=== PATIENT | female | born 1980 | race Caucasian/White ===

== ENCOUNTER → 2019-09-10 15:05 | Outpatient (CLI) | payer BC, SELFPAY ==
[2019-09-10 16:11] LABS: Basophils # 0.1 K/mm3 (0-0.2); Basophils % 0.5 % (0.1-2.0); Eosinophils # 0.2 K/mm3 (0.0-0.4); Eosinophils % 1.4 % (0.1-12.0); Hematocrit 47.1 % (37.0-47.0); Hemoglobin 15.4 g/dL (12.2-16.2); Lymphocytes # 3.9 K/mm3 (0.7-4.5); Lymphocytes % 31.1 % (10-50); Mean Corpuscular HGB Conc 32.7 g/dL (31.8-35.4); Mean Corpuscular Hemoglobin 31.2 pg (27.0-31.2); Mean Corpuscular Volume 95.2 fl (81-99); Mean Platelet Volume 7.9 fl (7.4-10.4); Monocytes # 0.8 K/mm3 (0.1-1.0); Monocytes % 6.4 % (1.7-9.3); Neutrophils # 7.7 K/mm3 (1.8-7.8); Neutrophils % 60.6 % (37.0-80.0); Platelet Count 385 K/mm3 (142-424); Red Blood Count 4.95 M/mm3 (4.20-5.40); Red Cell Distribution Width 13.3 % (11.5-17.5); White Blood Count 12.7 K/mm3 (4.8-10.8)
[2019-09-10 17:16] LABS: Chloride 107 mmol/L (98-107)
[2019-09-10 17:17] LABS: Potassium 4.3 mmoL/L (3.5-5.1); Sodium 138 mmol/L (136-145)
[2019-09-10 17:19] LABS: Alanine Aminotransferase 17 U/L (12-78); Alkaline Phosphatase 64 U/L (38-126); Aspartate Amino Transferase 24 U/L (14-36); Bilirubin,Total 0.5 mg/dl (0.2-1.3); Blood Urea Nitrogen 12 mg/dl (7-17); Estimated Glomerular Filt Rate 111 ml/min (>60); GFR (African American) 135 ML/MIN (>60)
[2019-09-10 17:20] LABS: Albumin/Globulin Ratio 1.1 (1.1-1.8); Anion Gap 8.3 mEq/L (5-15); Calcium 9.9 mg/dl (8.4-10.2); Carbon Dioxide 27 mmol/L (22.0-30.0); Globulin 3.7 g/dL (1.3-3.2); Glucose 77 mg/dl (74-100); Iron 124 ug/dL (37-170); Total Protein,Serum 7.7 g/dl (6.3-8.2)
[2019-09-10 17:26] LABS: C-Reactive Protein 10.4 mg/L (0-4)
[2019-09-10 17:28] LABS: Total Iron Binding Capacity 364 ug/dL (265-497)
[2019-09-10 17:37] LABS: 25-OH Vitamin D, Total 68.7 ng/mL (30-100)
[2019-09-10 17:55] LABS: Ferritin 33.4 ng/ml (6.24-137)
[2019-09-13 10:13] LABS: Vitamin B12 594 pg/mL (232-1245)
== END ==
PROVIDERS: Visit Provider Internal Medicine Gastroenterology
DX: K50.10 Crohn's disease of large intestine without complications (principal); L73.2 Hidradenitis suppurativa; R19.7 Diarrhea, unspecified
CPT/HCPCS: 36415; 80053; 82306; 82607; 82728; 83540; 83550; 85025; 86140

== ENCOUNTER → 2019-09-20 13:26 | Outpatient (CLI) | payer BC, SELFPAY ==
--- NOTE | 2019-09-20 13:39 | XR_ITS ---
PROCEDURE: XR KNEE RT 2V CLINICAL INDICATION: PAIN IN R KNEE COMPARISON: No exams were available for comparison FINDINGS: No fracture or dislocation. No lytic or blastic change. There is normal mineralization. The joint spaces are well-preserved. No significant degenerative/arthritic changes. No erosive changes evident. Other findings:None. IMPRESSION: No acute findings. Dictated by: Kimo Kebede 09/20/2019 13:56 Electronically signed by Kimo Kebede in [place] 09/20/2019 13:56
== END ==
PROVIDERS: PCP Nurse Practitioner Family; Visit Provider Nurse Practitioner Family
DX: M25.561 Pain in right knee (principal)
CPT/HCPCS: 73560

== ENCOUNTER 2020-03-19 17:11 | Emergency (ER) | payer BC, SELFPAY ==
[2020-03-19 17:30] VITALS: BP 158/98; PULSE 83; RESP 20; TEMP 36.9; O2SAT 97; BMI 38.2
--- NOTE | 2020-03-19 17:55 | HMH.EDUTC ---
[facility] [place] Disposition Clinical Impression: Otitis externa Qualifiers: Otitis externa type: unspecified type Chronicity: acute Laterality: left Qualified Code(s): H60.502 - Unspecified acute noninfective otitis externa, left ear Disposition: Home, Self-Care Condition on Discharge: Good Instructions: Middle Ear Infection, DI for Otitis Externa Additional Instructions: Drink plenty of fluids. Use the ear drops as directed. Take tylenol or ibuprofen for pain or fever. Take the medications as directed. Follow up with your regular doctor. GO TO THE ER FOR ANY WORSENING SYMPTOMS Prescriptions: Ciprofloxacin HCl/Dexameth [Ciprodex Otic Suspension] 2 drops EAR-BOTH BID 7 Days #1 bottle Transmission Status: Received by [employer] # Ciprofloxacin HCl [Ciprofloxacin 0.2% Otic Soln] 0.25 ml EAR-LEFT BID 7 Days #1 bottle Transmission Status: Received by [employer] # Cefdinir [Omnicef 300mg Capsule] 300 mg PO BID #20 cap Transmission Status: Received by [employer] # Referrals: Kriss Ardon [Primary Care Provider] - Time of Disposition: 18:17 Medical Decision Making - Medical Records Medical records reviewed: No: I reviewed the patient's medical records. - Wilder Inquiry Pt receiving controlled substance: No Vital Signs: 03/19/20 17:30 03/19/20 18:19 Temperature 98.4 F 98.4 F Temperature Source Oral Pulse Rate 83 Pulse Rate [Left Brachial] 83 Respiratory Rate 20 20 Blood Pressure 158/98 H Blood Pressure [Left Arm] 158/98 H Blood Pressure Mean [Left Arm] 118 Blood Pressure Source [Left Arm] Automatic Cuff Blood Pressure Position [Left Arm] Sitting 02 Sat by Pulse Oximetry 97 Oxygen Delivery Method Room Air [facility] [place] HPI - General Stated complaint: Left ear pain Time Seen by Provider: 03/19/20 17:55 Mode of Arrival: Ambulatory Source of Information: Patient Limitations: No Limitations Description of Symptoms (Recalled from Triage Doc. by RN): PATIENT C/O PAIN AND DRAINAGE FROM LEFT EAR X 3 DAYS HEENT Symptoms (Recalled from RN notes): Yes Resp Symptoms (Recalled from RN notes): No Skin Symptoms (Recalled from RN notes): No MS Symptoms (Recalled from RN notes): No Functional Status (Recalled from RN notes): WNL - History of Present Illness Provider Complaint: She c/o left ear pain for the past 1 week. She had similar symptoms about a month ago. At this time she was prescribed amoxicillin for an ear infection. She states that her ear got better then, but her symptoms came back. - Related Data Home Medications Medication Instructions Recorded Confirmed Adalimumab [Humira] 80 mg SQ WEEKLY 02/18/19 02/18/19 Mercaptopurine 50 mg PO DAILY 02/18/19 02/18/19 Sertraline HCl [Zoloft 100mg 100 mg PO DAILY 02/18/19 02/18/19 tablet] norgestimate-ethinyl estradioL 1 tab PO DAILY 02/18/19 02/18/19 [Tri-Sprintec Tablet] Previous Rx's Medication Instructions Recorded Azithromycin [Z-Al 250mg Tab*] 250 mg PO UD DOSE PK #6 tab 02/18/19 Brompheniramine/Pseudoephed/Dm 5 ml PO Q6HP PRN #240 syrup 02/18/19 [Bromfed Dm Cough Syrup] Ondansetron [Zofran 4mg ODT] 4 mg PO Q8HP PRN #20 tab.rapdis 02/18/19 methylPREDNISolone [Medrol] 4 mg PO DIRECTED 6 Days #21 02/18/19 tab.ds.pk Cefdinir [Omnicef 300mg Capsule] 300 mg PO BID #20 cap 03/19/20 Ciprofloxacin HCl [Ciprofloxacin 0.25 ml EAR-LEFT BID 7 Days #1 03/19/20 0.2% Otic Soln] bottle Ciprofloxacin HCl/Dexameth 2 drops EAR-BOTH BID 7 Days #1 03/19/20 [Ciprodex Otic Suspension] bottle Allergies Allergy/AdvReac Type Severity Reaction Status Date / Time Penicillins Allergy Verified 03/19/20 17:54 Sulfa (Sulfonamide Allergy Verified 03/19/20 17:54 Antibiotics) - Worker's Comp Is this a Worker's Comp case?: No [facility] History - Hepatitis A Screen Drug use history?: No High risk sexual behaviors?: No History of sexually transmitted infection?: No Currently employed?: No
[2020-03-19 18:19] VITALS: BP 158/98; PULSE 83; RESP 20; TEMP 36.9; O2SAT 97
== END 2020-03-19 18:24 | disposition home or self-care (01) ==
PROVIDERS: Emergency Provider Nurse Practitioner Family; PCP Nurse Practitioner Family
DX: H60.502 Unspecified acute noninfective otitis externa, left ear (principal); F17.210 Nicotine dependence, cigarettes, uncomplicated; Z88.0 Allergy status to penicillin; Z88.2 Allergy status to sulfonamides
CPT/HCPCS: 99201

== ENCOUNTER → 2020-04-15 11:11 | Outpatient (POV) | payer BC, SELFPAY | PROVIDERS: Visit Provider Otolaryngology | DX: Z00.00 Encounter for general adult medical examination without abnormal findings (principal) ==

== ENCOUNTER → 2020-07-01 10:57 | Outpatient (CLI) | payer BC, SELFPAY ==
--- NOTE | 2020-07-01 11:04 | XR_ITS ---
PROCEDURE: XR WRIST LT MIN 3V CLINICAL INDICATION: SPRAIN OF LT WRIST, INITIAL ENCOUNTER Pain COMPARISON: No exams were available for comparison FINDINGS: No fracture or dislocation. No lytic or blastic change. There is normal mineralization. The joint spaces are well-preserved. No significant degenerative/arthritic changes. No erosive changes evident. Other findings:None. IMPRESSION: No acute findings. Dictated by: Toro Gallegos MD 07/01/2020 12:15 Toro Gallegos MD in [place] 07/01/2020 12:15
== END ==
PROVIDERS: PCP Nurse Practitioner Family; Visit Provider Family Medicine
DX: M25.532 Pain in left wrist (principal); W19.XXXA Unspecified fall, initial encounter
CPT/HCPCS: 73110

== ENCOUNTER → 2020-07-23 09:30 | Outpatient (CLI) | payer BC, SELFPAY ==
[2020-07-23 10:55] LABS: Coronavirus 19 IgG Antibody Positive (Negative); Coronavirus 19 IgM Antibody Negative (Negative)
== END ==
PROVIDERS: Visit Provider Internal Medicine Gastroenterology
DX: Z01.812 Encounter for preprocedural laboratory examination (principal); Z20.822 Contact with and (suspected) exposure to COVID-19; Z12.11 Encounter for screening for malignant neoplasm of colon
CPT/HCPCS: 36415; 86328

== ENCOUNTER 2020-07-25 10:23 | Day surgery (SDC) | payer BC, SELFPAY ==
[2020-07-22 17:33] VITALS: BMI 35.5
[2020-07-25 11:30] VITALS: BP 126/89; PULSE 85; RESP 18; TEMP 36.5; O2SAT 96
[2020-07-25 12:31] VITALS: O2SAT 100
--- NOTE | 2020-07-25 13:02 | P.PCN_ITS ---
[facility] Procedure Note Procedure Note:: Colonoscopy Procedure Report: Colonoscopy with cold snare polypectomy Endoscopist: Duke Westbrook II, MD Referring physician: YENNI Donahue/Zenobia Sevilla MD Date of Procedure: July 25, 2020 Equipment: Olympus 190 variable stiffness pediatric colonoscope Sedation: MAC sedation Indication: Mrs. Hidalgo is a 40-year-old female with a history of Crohn's colitis and perianal Crohn's disease. She has followed with [facility] for more than 15 years. She did have perianal fistulas and this was managed with seton placement. [facility] (Oksana Katz MD). The patient has had normal C-reactive protein and sedimentation rate. She is taking Humira weekly. She is in clinical remission. She will get some occasional minor discomfort in the right lower quadrant like a catch or stitch. The patient reports no rectal bleeding, weight loss or change in bowel habits. She does have intermittent diarrhea. She does have 2 sisters with Crohn's disease. She has no family history of colon cancer. The patient's last colonoscopy was December 2013 and she had moderately active Crohn's colitis at that time. Procedure: Prior to the procedure, a history and physical exam was performed, and patient's medications and allergies were reviewed. The risks, benefits and alternatives of the sedation and procedure were discussed with the patient. All questions were answered and informed consent was obtained. The patient was brought to the procedure room. Patient identification and proposed procedure were verified by the physician and the nurse. The patient was placed in a left lateral decubitus position and the scope was passed under direct vision. Throughout the procedu re, the patient's blood pressure, pulse, and oxygen saturations were monitored continuously. The colonoscopy was accomplished without difficulty. The patient tolerated the procedure well. Findings: On digital rectal examination there was slightly reduced rectal tone. There was some evidence in the perianal region of prior perianal Crohn's which had healed. There were no external hemorrhoids. The colonoscope was introduced through the anal canal to the rectum and advanced to the cecum. The ileocecal valve and appendiceal orifice were identified. The scope was advanced a short distance into the ileum which appeared grossly normal. The scope was then withdrawn into the colon. Throughout the colon there was some mucosal fibrosis but no evidence of any active colitis throughout. There were 3 polyps in the ascending colon/right colon removed via cold snare polypectomy. There was no colonic stricturing. The remaining cecum, ascending, transverse, descending, sigmoid and rectum were grossly normal. There were no mucosal abnormalities identified. Upon retroflexion within the rectum there was evidence of some fibrosis at the pectinate line from prior perianal Crohn's. There were no fistulas. The preparation was excellent throughout with [place] Preparation Score of 9. The cecal time was 12 minutes. Impression: 1. Colonic polyps x3 2. Complete remission of Crohn's colitis 3. Mild mucosal fibrosis and complete healing of perianal Crohn's Plan: The patient is in remission. I would continue Humira as maintenance therapy. I will follow up the polyp histology and would recommend surveillance colonoscopy every 5 years. I will discuss the findings with the patient and family. I do feel that she gets intermittent functional diarrhea. I would consider bulk fiber (FiberCon) and IBgard.
[2020-07-25 13:05] VITALS: BP 109/72; PULSE 86; RESP 18; TEMP 36.6; O2SAT 92
[2020-07-25 13:20] VITALS: BP 124/90; PULSE 77; RESP 18; O2SAT 96
[2020-07-25 13:26] VITALS: BP 127/95; PULSE 80; RESP 18; O2SAT 96
[2020-07-25 13:46] VITALS: BP 136/78; PULSE 78; RESP 18; O2SAT 97
--- NOTE | 2020-07-25 13:48 | HMH.ANESCL ---
[facility] Anesthesia Checklist - Structural Data Admitted From: Home Planned Operative Procedure/s: colonoscopy Consent for Planned Operative Procedure(s) Verified: Yes - Airway Assessment C-Spine Mobility Assessed: Yes TMJ Mobility Assessed: Yes Dentition: Good Dentition - Neurological Assessment Level of Consciousness: Awake, Alert, Appropriate - Anesthesia Plan Anesthesia Risk discussed: Yes Anesthesia Plan: Verified ASA Class: II Anesthesia Type: MAC [facility] History I have reviewed the patient's past medical history: Yes Medical History: Denies:: Cancer, Diabetes Mellitus Type 1, Diabetes Mellitus Type 2, Internal Pacemaker, MRSA, Seizures *Have you ever received a pneumonia vaccine?: No *Have you received a flu vaccine this season?: No Anesthesia experience/problems:: none Other Surgeries: No: Pacemaker Amputation: No Fractures: No - *Social History Smoking Status: Current some day smoker Tobacco Type: cigarettes # Packs/Day (cigarettes): 1 Alcohol Intake: never Substance Use Type: denies use *Occupational Status:: employed Housing: house Household Members: spouse *Travel in the last 8 weeks: None Family Hx:: No significant family history
== END 2020-07-25 13:48 | disposition home or self-care (01) ==
LOC: OUTP 10:24
PROVIDERS: PCP Nurse Practitioner Family; Visit Provider Internal Medicine Gastroenterology
PROC: 0DJD8ZZ Inspection of Lower Intestinal Tract, Via Natural or Artificial Opening Endoscopic (ICD-10-PCS; CPT 45378; principal; 2020-07-25 11:30)
DX: K63.5 Polyp of colon (principal); Z87.19 Personal history of other diseases of the digestive system; Z83.79 Family history of other diseases of the digestive system; Z72.0 Tobacco use; I10 Essential (primary) hypertension; F41.9 Anxiety disorder, unspecified; Z86.718 Personal history of other venous thrombosis and embolism; Z80.9 Family history of malignant neoplasm, unspecified; Z88.2 Allergy status to sulfonamides; Z79.899 Other long term (current) drug therapy
CPT/HCPCS: 45385

== ENCOUNTER → 2020-07-29 11:12 | Outpatient (CLI) | payer BC, SELFPAY ==
--- NOTE | 2020-07-29 | ECG_ITS ---
APPROVED REPORT Exam: Resting ECG HR:66 bpm ECG Measurements Heart Rate 66 AXES LA 130 P 54 QRSd 82 QRS 59 QT 380 T -11 QTc 398 Conclusion Normal sinus rhythm Nonspecific ST abnormality Abnormal QRS-T angle, consider primary T wave abnormality Abnormal ECG Electronically signed by : Gary Fountain, 07/30/2020 17:00:11
== END ==
PROVIDERS: PCP Nurse Practitioner Family; Visit Provider Colon & Rectal Surgery
DX: Z01.810 Encounter for preprocedural cardiovascular examination (principal); K61.2 Anorectal abscess
CPT/HCPCS: 93005

== ENCOUNTER → 2020-09-16 14:23 | Outpatient (CLI) | payer BC, SELFPAY ==
--- NOTE | 2020-09-16 14:24 | CA_ITS ---
APPROVED REPORT EXAM: Comprehensive 2D, Doppler, and color-flow Echocardiogram Stencil Typist: Venus Cook CRT Ht: 5 ft 6 in Wt: 238lbs BSA: 2.15 BP: 138/96 mmHg Indications: Chest Pain, Hypertension/HDD, Smoking, PICC 2D Dimensions LVOT 2.00 cm (M/F) 1.5-2.5 LA Volume 45.70 mL LA Volume Index 21.30 mL/m2 (M/F) 16-34 M-Mode Dimensions RVDd 2.41 cm (0.9-2.6) LA Diam 3.70 cm (1.9-4.0) LVDd 4.75 cm (3.5-5.7) Ao Diam 3.15 cm (2.0-3.7) LVDs 3.36 cm (3.5-5.7) IVSd 1.42 cm (0.6-1.1) PWd 1.10 cm (0.6-1.1) EF (Teich) 37.20% FS 13.90% EDV (Teich) 33.60 mL TAPSE 2.14 (<1.7) ESV (Teich) 46.10 mL LV Diastology E Decel Time 253.00 (160-240 msec) E/A Ratio 1.20 MED E' 7.30 (< 7 cm/sec) MED A' 8.10 cm/s E'/MED E' Ratio 10.12 (>14) LAT E' 8.00 (<10 cm/sec) LAT A' 9.50 cm/s E/LAT E' Ratio 9.24 (>14) Aortic Valve AO Peak GR. 7.80 mmHg Mitral Valve MV A Velocity 62.00 (40-130 cm/s) E/A Ratio 1.20 MV Decel. Time 253.00 (160-240 ms) Pulmonary Valve PV Peak Velocity 58.00 (50-150 cm/s) Tricuspid Valve TR P. Velocity 168.00 cm/s RAP Estimate 10.00 mmHg RVSP 21.30 mmHg Left Ventricle Left atrium is mildly enlarged, left ventricle is normal size, there is no concentric left ventricular hypertrophy, visually estimated ejection fraction 55% with no regional wall motion abnormality, diastolic parameters are inconclusive. Right Ventricle Right atrium and right ventricle are normal size and contractility. Aortic Valve Aortic valve is grossly normal, there is no aortic stenosis or aortic insufficiency. Mitral Valve Mitral valve grossly normal, there is trace mitral regurgitation. Tricuspid Valve Tricuspid grossly normal, there is trace tricuspid regurgitation, tricuspid regurgitation jet velocity is inadequate for calculation of the right ventricular systolic pressure. Pulmonic Valve Pulmonic valve is poorly visualized. Great Vessels Aortic root is normal size. Pericardium No significant pericardial effusion noted. Conclusion 1. Mildly enlarged left atrium, normal left ventricular size, visually estimated ejection fraction 45% with no regional wall motion abnormality, diastolic parameters are inconclusive. 2. Trace mitral and tricuspid regurgitation. 3. No significant pericardial effusion noted. Electronically signed by : Camilo Baer, 09/16/2020 21:18:40
== END ==
PROVIDERS: PCP Nurse Practitioner Family; Visit Provider Physician Assistant
DX: R06.00 Dyspnea, unspecified (principal)
CPT/HCPCS: 93306

== ENCOUNTER → 2020-10-04 09:59 | Outpatient (CLI) | payer BC, SELFPAY ==
--- NOTE | 2020-10-04 11:18 | XR_ITS ---
PROCEDURE INFORMATION: Exam: XR Chest Exam date and time: 10/04/2020 11:18 AM Age: 40 years old Clinical indication: Dyspnea TECHNIQUE: Imaging protocol: XR of the chest. Views: 2 views. COMPARISON: No relevant prior studies available. FINDINGS: Lungs: The lungs are hyperinflated, consistent with underlying small airways disease. Granulomatous density noted within the right upper lobe. Atelectatic changes within the lung bases without focal pneumonia. Pleural spaces: Unremarkable. No pleural effusion. No pneumothorax. Heart/Mediastinum: Unremarkable. No cardiomegaly. Bones/joints: Unremarkable. IMPRESSION: 1. The lungs are hyperinflated, consistent with underlying small airways disease. 2. Atelectatic changes within the lung bases without focal pneumonia.
== END ==
PROVIDERS: PCP Nurse Practitioner Family; Referring Provider Physician Assistant; Visit Provider Physician Assistant
DX: R06.00 Dyspnea, unspecified (principal); F17.210 Nicotine dependence, cigarettes, uncomplicated; I10 Essential (primary) hypertension; K50.919 Crohn's disease, unspecified, with unspecified complications; R40.0 Somnolence; R94.31 Abnormal electrocardiogram [ECG] [EKG]
CPT/HCPCS: 71046

== ENCOUNTER → 2020-10-14 08:02 | Outpatient (CLI) | payer BC, SELFPAY ==
--- NOTE | 2020-10-14 08:02 | CT_ITS ---
PROCEDURE: CT CHEST WO CON CLINCAL INDICATION: abnormal cxr- COMPARISON: CR XR CHEST 2V from 10/04/2020 TECHNIQUE: Unenhanced CT chest with axial, coronal, and sagittal multiplanar reformations. Dose modulation, automated exposure control, and/or iterative reconstruction were used for dose reduction. FINDINGS: LUNGS:Calcified granuloma is noted in the right upper lobe. Atelectasis is noted in the lingular and the right middle lobe. No lobar consolidation, pleural effusions or pneumothorax. 6 millimeter nodule in the right upper lobe. No other suspicious lung nodules. Airway: The central airways are patent. HEART / GREAT VESSELS Heart:The heart is normal size without pericardial effusion. Vessels: The thoracic aorta is unremarkable. MEDIASTINUM Mediastinum: Calcified bilateral hilar lymph nodes are noted. No significant mediastinal adenopathy. UPPER ABDOMEN: Abdomen: Unremarkable, allowing for the noncontrast technique. BONES Bones: Unremarkable Thyroid: The visualized thyroid gland is unremarkable IMPRESSION: 6 millimeter nodule in the right upper lobe. It is follow-up with CT thorax without contrast in 6-12 months is recommended as per modified Fleischner criteria. Atelectasis in the right middle lobe and lingula. Dictated by: Paula Verma 10/14/2020 09:30 Paula Verma in [facility] 10/14/2020 09:30
== END ==
PROVIDERS: PCP Nurse Practitioner Family; Visit Provider Urology
DX: R06.00 Dyspnea, unspecified (principal); R93.89 Abnormal findings on diagnostic imaging of other specified body structures; R94.31 Abnormal electrocardiogram [ECG] [EKG]; B95.4 Other streptococcus as the cause of diseases classified elsewhere; I10 Essential (primary) hypertension; F17.200 Nicotine dependence, unspecified, uncomplicated
CPT/HCPCS: 71250

== ENCOUNTER → 2020-10-30 11:17 | Outpatient (CLI) | payer BC, SELFPAY ==
--- NOTE | 2020-10-30 12:33 | CT_ITS ---
PROCEDURE: CT HR CHEST X3 CLINICAL HISTORY: Lung nodule Abnormal CXR/CT COMPARISON: CT CT CHEST WO CON from 10/14/2020 TECHNIQUE: Standard images are performed along with inspiration, expiration, and prone high-resolution images. Axial images obtained with sagittal and coronal reformats. All CT scans at the facility use one or more dose reduction, viz: automated exposure control, ma/kV adjustment per patient size (including targeted exams where dose is matched to indication, i.e. head), or iterative reconstruction technique. FINDINGS: No mediastinal or hilar mass or adenopathy. Normal heart size. There is an 8 x 3 mm nodular opacity in the right minor fissure region unchanged. Fibrotic change/scarring noted in the right middle lobe. There are fibrotic changes in the lingula and mild atelectasis left lower lobe. High-resolution images demonstrates some minimal ground-glass opacity in the lingula and left lower lobe on the supine images. These however resolve on the prone images consistent with dependent changes.. No interlobular septal thickening is apparent. No honeycombing. No significant air trapping. IMPRESSION: 1. No evidence of interstitial lung disease. 2. Stable 8 x 3 mm nodular opacity right minor fissure with fibrotic change/scarring in lingula and right middle lobe Dictated by: Toro Gallegos MD 10/31/2020 10:18 Toro Gallegos MD in [place] 10/31/2020 10:18
== END ==
PROVIDERS: PCP Nurse Practitioner Family; Visit Provider Internal Medicine Pulmonary Disease
DX: R06.02 Shortness of breath (principal)
CPT/HCPCS: 71250; 94060; 94726; 94729

== ENCOUNTER → 2021-02-02 10:53 | Outpatient (CLI) | payer BC, SELFPAY ==
[2021-02-02 11:26] LABS: Basophils # 0.2 K/mm3 (0-0.2); Eosinophils # 0.2 K/mm3 (0.0-0.4); Eosinophils % 1.3 % (0.1-12.0); Hemoglobin 15.8 g/dL (12.2-16.2); Lymphocytes # 4.6 K/mm3 (0.7-4.5); Lymphocytes % 32.2 % (10-50); Mean Corpuscular HGB Conc 32.2 g/dL (31.8-35.4); Mean Corpuscular Volume 93.2 fl (81-99); Mean Platelet Volume 8.1 fl (7.4-10.4); Monocytes # 1.1 K/mm3 (0.1-1.0); Monocytes % 7.3 % (1.7-9.3); Neutrophils # 8.4 K/mm3 (1.8-7.8); Neutrophils % 58.1 % (37.0-80.0); Platelet Count 389 K/mm3 (142-424); Red Blood Count 5.26 M/mm3 (4.20-5.40); Red Cell Distribution Width 13.6 % (11.5-17.5); White Blood Count 14.4 K/mm3 (4.8-10.8)
[2021-02-02 12:15] LABS: Erythrocyte Sedimentation Rate 8 mm/hr (0-20)
[2021-02-02 13:55] LABS: Chloride 105 mmol/L (98-107); Potassium 4.2 mmoL/L (3.5-5.1); Sodium 139 mmol/L (136-145)
[2021-02-02 13:58] LABS: Alanine Aminotransferase 19 U/L (12-78); Albumin Level 4.2 g/dl (3.5-5.0); Albumin/Globulin Ratio 1.2 (1.1-1.8); Alkaline Phosphatase 79 U/L (38-126); Anion Gap 13.2 mEq/L (5-15); Aspartate Amino Transferase 29 U/L (14-36); Bilirubin,Total 0.3 mg/dl (0.2-1.3); Blood Urea Nitrogen 10 mg/dl (7-17); Calcium 9.4 mg/dl (8.4-10.2); Carbon Dioxide 25 mmol/L (22.0-30.0); Estimated Glomerular Filt Rate 136 ml/min (>60); GFR (African American) 165 ML/MIN (>60); Globulin 3.6 g/dL (1.3-3.2); Glucose 69 mg/dl (74-100); Iron 119 ug/dL (37-170); Total Protein,Serum 7.8 g/dl (6.3-8.2)
[2021-02-02 14:06] LABS: C-Reactive Protein 8.4 mg/L (0-4)
[2021-02-02 14:09] LABS: Total Iron Binding Capacity 333 ug/dL (265-497)
== END ==
PROVIDERS: Visit Provider Internal Medicine Gastroenterology
DX: K50.10 Crohn's disease of large intestine without complications (principal); K30 Functional dyspepsia; R12 Heartburn
CPT/HCPCS: 36415; 80053; 83540; 83550; 85025; 85651; 86140

== ENCOUNTER 2021-03-03 17:08 | Emergency (ER) | payer BC, SELFPAY ==
[2021-03-03 17:44] VITALS: BP 163/94; PULSE 86; RESP 19; TEMP 36.6; O2SAT 98; BMI 38.7
--- NOTE | 2021-03-03 17:48 | HMH.EDUTC ---
[facility] [place] Disposition Clinical Impression: Sinusitis Qualifiers: Sinusitis location: unspecified location Chronicity: unspecified Qualified Code(s): J32.9 - Chronic sinusitis, unspecified Disposition: Home, Self-Care Condition on Discharge: Good Instructions: Sinusitis, DI for Sinusitis, Azithromycin Additional Instructions: *Monitor Temp, Over the counter Motrin or Tylenol as directed/as needed Tylenol every 4 hours and Motrin every 6 hours (as long as your family doctor has told you that you can take it) for fever or pain. and straight to ER if unable to lower temp less than 101.0 after medication given *Warm salt water gargles may help to soothe the throat *Throat Lozenges *Warm fluids like tea with honey may help to soothe the throat *Sleep elevated *Humidifier/Vaporizer *Flonase 2 sprays in each nostril daily but be aware that it may take 2-3 days before you notice improvement *Take medication as prescribed Follow up with your Family Doctor if no improvement Follow up IMMEDIATELY for new or worsening symptoms or no Noticeable improvement over the next 48-72 hours. 911 for difficulty breathing or swallowing Prescriptions: methylPREDNISolone [Medrol 4mg tab] 4 mg PO DIRECTED #21 tab Transmission Status: Pending to [facility] # Azithromycin [Z-Al 250mg Tab] 250 mg PO DIRECTED #6 tab Transmission Status: Pending to [facility] # Referrals: Kriss Ardon [Primary Care Provider] - As needed Time of Disposition: 17:56 Medical Decision Making - Wilder Inquiry Pt receiving controlled substance: No Wilder was queried for this patient: No Vital Signs: 03/03/21 17:44 Temperature 97.8 F Temperature Source Oral Pulse Rate [Left] 86 Respiratory Rate 19 Blood Pressure [Right Arm] 163/94 H Blood Pressure Mean [Right Arm] 117 02 Sat by Pulse Oximetry 98 Medical Decision Narrative: Patient state that she has taken azithromycin and Medrol in the past without reactions or complications [facility] [place] HPI - General Stated complaint: sinus infection Time Seen by Provider: 03/03/21 17:48 Mode of Arrival: Ambulatory Source of Information: Patient Limitations: No Limitations Description of Symptoms (Recalled from Triage Doc. by RN): pt c/o sinus pressure and congestion HEENT Symptoms (Recalled from RN notes): Yes (sinus pressure and congestion) Resp Symptoms (Recalled from RN notes): No Skin Symptoms (Recalled from RN notes): No MS Symptoms (Recalled from RN notes): No Functional Status (Recalled from RN notes): wnl - History of Present Illness Provider Complaint: Patient states that she feels like she is getting a sinus infection States that she has been having pain and pressure like feeling behind her eyes that has continued to get worse over the last couple of weeks States that today it was worse and even her teeth hurt so she came in to get checked - Related Data Home Medications Medication Instructions Recorded Confirmed Adalimumab [Humira] 80 mg SQ WEEKLY 02/18/19 11/04/20 Mercaptopurine 50 mg PO DAILY 02/18/19 11/04/20 Sertraline HCl [Zoloft 100mg 100 mg PO DAILY 02/18/19 11/04/20 tablet] hydroCHLOROthiazide [HCTZ 25mg 25 mg PO DAILY 07/22/20 11/04/20 tab] cyclobenzaprine 10 mg tablet 10 mg PO HS PRN 09/09/20 11/04/20 Previous Rx's Medication Instructions Recorded albuterol sulfate 90 mcg/actuation 1 inh INHALATION Q6H PRN 90 Days 11/04/20 aerosol inhaler #8.5 g Azithromycin [Z-Al 250mg Tab] 250 mg PO DIRECTED #6 tab 03/03/21 methylPREDNISolone [Medrol 4mg 4 mg PO DIRECTED #21 tab 03/03/21 tab] Allergies Allergy/AdvReac Type Severity Reaction Status Date / Time amoxicillin [From Augmentin] Allergy Intermediate hives Verified 11/04/20 11:14 clavulanic acid Allergy Intermediate hives Verified 11/04/20 11:14 [From Augmentin] shrimp Allergy Intermediate Verified 11/04/20 11:14 Sulfa (Sulfonamide Allergy Verified 11/04/20 11:14
[2021-03-03 17:58] VITALS: BP 163/94; PULSE 86; RESP 19; TEMP 36.6
== END 2021-03-03 18:02 | disposition home or self-care (01) ==
PROVIDERS: Emergency Provider Nurse Practitioner; PCP Nurse Practitioner Family
DX: J32.9 Chronic sinusitis, unspecified (principal); I10 Essential (primary) hypertension; F17.210 Nicotine dependence, cigarettes, uncomplicated; Z88.2 Allergy status to sulfonamides
CPT/HCPCS: 99202; G0463

== ENCOUNTER 2021-03-27 17:54 | Emergency (ER) | payer BC, SELFPAY ==
[2021-03-27 19:10] VITALS: BP 146/89; PULSE 89; RESP 19; TEMP 36.8; O2SAT 99; BMI 34.9
--- NOTE | 2021-03-27 19:30 | HMH.EDUTC ---
[facility] [place] Impression: Viral syndrome, Bronchitis Sinusitis Qualifiers: Sinusitis location: unspecified location Chronicity: acute Recurrence: non-recurrent Qualified Code(s): J01.90 - Acute sinusitis, unspecified Disposition: Home, Self-Care Condition on Discharge: Good Instructions: DI for Sinusitis, DI for Viral Syndrome Additional Instructions: Drink plenty of fluids. Take tylenol or ibuprofen for pain or fever. Take the medications as directed. Follow up with your regular doctor. GO TO THE ER FOR ANY WORSENING SYMPTOMS Quarantine until you know the results of your covid-19 test. If it is positive, the health department should call you and give you further instructions about your length of Quarantine and other things. Notify your school or workplace of your results and follow their instructions regarding return to work/school. The cough medication (promethazine dm) will make you drowsy, so don't drive or operate heavy machinery after taking it. Prescriptions: Promethazine/Dextromethorphan [Promethazine-Dm Syrup] 5 ml PO Q6HP PRN #240 ml PRN Reason: Cough Transmission Status: Received by [facility] methylPREDNISolone [Medrol] 4 mg PO DIRECTED 6 Days #21 packet Transmission Status: Received by [facility] guaiFENesin [Mucinex 600mg tablet] 1 - 2 tab PO BIDP PRN #30 tab PRN Reason: Congestion Transmission Status: Received by [facility] Azithromycin [Z-Al 250mg Tab*] 250 mg PO UD DOSE PK #6 tab Transmission Status: Received by [facility] Referrals: Provider,Referral, [Primary Care Provider] - Time of Disposition: 20:50 Medical Decision Making - Medical Records Medical records reviewed: No: I reviewed the patient's medical records. - Wilder Inquiry Pt receiving controlled substance: No Vital Signs: 03/27/21 19:10 03/27/21 20:24 Temperature 98.3 F 98.3 F Temperature Source Oral Pulse Rate 89 Pulse Rate [Right Brachial] 89 Respiratory Rate 19 19 Blood Pressure 146/89 H Blood Pressure [Right Arm] 146/89 H Blood Pressure Mean [Right Arm] 108 Blood Pressure Source [Right Arm] Automatic Cuff Blood Pressure Position [Right Arm] Sitting 02 Sat by Pulse Oximetry 99 Oxygen Delivery Method Room Air - Lab Data Lab results reviewed: Yes: I reviewed the patient's lab results. Orders (Tests/Meds): ED MEDICATIONS Discontinued Medications Generic Name Dose Route Start Last Admin Trade Name Aldo PRN Reason Stop Dose Admin Ceftriaxone Sodium 1 gm 03/27/21 20:28 03/27/21 20:34 Ceftriaxone 1gm Vial IM 03/27/21 20:29 1 gm ONCE ONE Administration Lidocaine HCl 0 ml 03/27/21 20:28 03/27/21 20:34 Lidocaine 1% 5ml Pf Vial IM 03/27/21 20:29 2 ml ONCE ONE Administration Methylprednisolone Sodium Succinate 125 mg 03/27/21 20:28 03/27/21 20:34 Methylprednisolone Sod Succ 125mg Vial IM 03/27/21 20:29 125 mg ONCE ONE Administration ORDERS Category Date Time Status Full Resp Panel w/COVID ([facility]) Routine Lab 03/27/21 20:24 [place] [facility] [place] - General Stated complaint: possible sinus infection Time Seen by Provider: 03/27/21 19:30 - History of Present Illness Provider Complaint: She states that for the past 5 days she has had sinus congestion, chest congestion and a productive cough. She thinks that she has a sinus infection. She is on Humira for Crohn's Disease. She has been fully vaccinated against covid-19. 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 She has been tested several times since her symptoms began and all have been negative for covid-19. - Related Data Home Medications Medication Instructions Recorded Confirmed Adalimumab [Humira] 80 mg SQ WEEKLY 02/18/19 03/27/21 Mercaptopurine 50 mg PO DAILY 02/18/19 03/27/21 Sertraline HCl [Zoloft 100mg 100 mg PO DAILY 02/18/19 03/27/21 tablet] hydroCHLOROthiazide [HCTZ 25mg 25 mg PO DAILY 07/22/20 03/27/21 tab] Previous Rx
[2021-03-27 20:24] VITALS: BP 146/89; PULSE 89; RESP 19; TEMP 36.8; O2SAT 99
[2021-03-27 20:29] LABS: Adenovirus,PCR Not Detected (NotDetected); Bordetella Pertussis Not Detected (NotDetected); Chlamydophila Pneumoniae, PCR Not Detected (NotDetected); Coronavirus 19, PCR Not Detected (NotDetected); Coronavirus 229E Not Detected (NotDetected); Coronavirus NL63 Not Detected (NotDetected); Coronovirus HKU1,PCR Not Detected (NotDetected); Human Metapneumovirus Not Detected (NotDetected); Influenza A, PCR Not Detected (NotDetected); Influenza AH1, 2009 Not Detected (NotDetected); Influenza AH1, PCR Not Detected (NotDetected); Influenza AH3,PCR Not Detected (NotDetected); Influenza B, PCR Not Detected (NotDetected); Mycoplasma Pneumoniae, PCR Not Detected (NotDetected); Parainfluenza 1, PCR Not Detected (NotDetected); Parainfluenza 2, PCR Not Detected (NotDetected); Parainfluenza 3, PCR Not Detected (NotDetected); Parainfluenza 4, PCR Not Detected (NotDetected); Respiratory Syncytial Virus Not Detected (NotDetected); Rhinovirus/Enterovirus Not Detected (NotDetected)
[2021-03-28 02:16] LABS: Coronavirus OC43 Detected (NotDetected)
== END 2021-03-27 20:52 | disposition home or self-care (01) ==
PROVIDERS: Emergency Provider Nurse Practitioner Family
DX: J20.9 Acute bronchitis, unspecified (principal); J01.90 Acute sinusitis, unspecified; B34.9 Viral infection, unspecified; I10 Essential (primary) hypertension; F17.210 Nicotine dependence, cigarettes, uncomplicated; Z20.822 Contact with and (suspected) exposure to COVID-19
CPT/HCPCS: 87581; 87632; 87798; 96372; 99202; C9803; G0463; U0003; U0005

== ENCOUNTER 2021-04-18 11:16 | Emergency (ER) | payer BC, SELFPAY ==
--- NOTE | 2021-04-18 12:51 | XR_ITS ---
PROCEDURE INFORMATION: Exam: XR Right Knee Exam date and time: 04/18/2021 12:51 PM Age: 41 years old Clinical indication: Pain; Knee; Right; Additional info: Pain and swelling TECHNIQUE: Imaging protocol: XR Right knee. Views: 3 views. COMPARISON: CR XR KNEE RT 2V 09/20/2019 1:41 PM FINDINGS: Bones/joints: Bones appear intact and normally aligned with normal mineralization. Very mild narrowing of the medial knee joint space suggesting underlying chondromalacia. No significant bony arthritic deformities at the tibiofemoral joint. Tiny superior patellar spur at the patellofemoral joint. Small fabella noted. Large knee joint effusion.There are no lytic skeletal lesions seen. Soft tissues: No radiopaque foreign bodies. No pathologic soft tissue calcification. Other findings: Overlying clothing artifacts. IMPRESSION: 1. No acute fracture or dislocation. 2. Large knee joint effusion, correlate for internal derangement. 3. Minimal degenerative changes, as above.
[2021-04-18 13:12] VITALS: BP 151/98; PULSE 82; RESP 18; TEMP 37; O2SAT 98; BMI 38.2
--- NOTE | 2021-04-18 13:27 | HMH.EDUTC ---
[facility] Disposition Clinical Impression: Knee pain, right Qualifiers: Chronicity: acute Qualified Code(s): M25.561 - Pain in right knee Disposition: Home, Self-Care Condition on Discharge: Good Instructions: DI for Knee Pain Additional Instructions: Weightbearing as tolerated rest Ice with cold pack for 20 minutes remove may repeat for comfort every hour brace for support and swelling no less in the shower. Be sure not too tight but not to lose either Elevate with leg as much as possible to help reduce swelling and therefore pain Ibuprofen every 6 hours as needed for pain or inflammation. If needs something more you can take Tylenol every 4 hours as needed as long as her primary care has told he was okayed for you to take both. If improving any do not need to follow-up you can bring begin exercising 2-3 weeks after injury. Follow-up immediately if new or worsening symptoms or no noticeable improvement over the next 3-5 days. call ortho, follow up as scheduled 05/05 Referrals: Ector Pizarro [Primary Care Provider] - Time of Disposition: 13:33 Medical Decision Making - Wilder Inquiry Pt receiving controlled substance: No Vital Signs: 04/18/21 13:12 Temperature 98.6 F Temperature Source Oral Pulse Rate [Left] 82 Respiratory Rate 18 Blood Pressure [Right Arm] 151/98 H Blood Pressure Mean [Right Arm] 115 02 Sat by Pulse Oximetry 98 Orders (Tests/Meds): ORDERS Category Date Time Status XR knee RT 3V Stat Exams 04/18/21 12:51 Taken [facility] HPI - General Chief complaint: Urgent Treatment Center Stated complaint: right knee pain Time Seen by Provider: 04/18/21 13:30 Mode of Arrival: Ambulatory Source of Information: Patient Limitations: No Limitations Description of Symptoms (Recalled from Triage Doc. by RN): pt states she was sitting on her R knee and when she stood up she had pain. pt is c/o R knee pain x4 days. HEENT Symptoms (Recalled from RN notes): No Resp Symptoms (Recalled from RN notes): No Skin Symptoms (Recalled from RN notes): No MS Symptoms (Recalled from RN notes): Yes (R knee pain) Functional Status (Recalled from RN notes): wnl - History of Present Illness Provider Complaint: 41 yr old female states she was sitting on her R knee and when she stood up she had pain. pt is c/o R knee pain x4 days. - Related Data Home Medications Medication Instructions Recorded Confirmed Adalimumab [Humira] 80 mg SQ WEEKLY 02/18/19 03/27/21 Mercaptopurine 50 mg PO DAILY 02/18/19 03/27/21 Sertraline HCl [Zoloft 100mg 100 mg PO DAILY 02/18/19 03/27/21 tablet] hydroCHLOROthiazide [HCTZ 25mg 25 mg PO DAILY 07/22/20 03/27/21 tab] Previous Rx's Medication Instructions Recorded Azithromycin [Z-Al 250mg Tab*] 250 mg PO UD DOSE PK #6 tab 03/27/21 Promethazine/Dextromethorphan 5 ml PO Q6HP PRN #240 ml 03/27/21 [Promethazine-Dm Syrup] guaiFENesin [Mucinex 600mg tablet] 1 - 2 tab PO BIDP PRN #30 tab 03/27/21 methylPREDNISolone [Medrol] 4 mg PO DIRECTED 6 Days #21 03/27/21 packet Allergies Allergy/AdvReac Type Severity Reaction Status Date / Time amoxicillin [From Augmentin] Allergy Intermediate hives Verified 11/04/20 11:14 clavulanic acid Allergy Intermediate hives Verified 11/04/20 11:14 [From Augmentin] shrimp Allergy Intermediate Verified 11/04/20 11:14 Sulfa (Sulfonamide Allergy Verified 11/04/20 11:14 Antibiotics) - Worker's Comp Is this a Worker's Comp case?: No [facility] History - Hepatitis A Screen Drug use history?: No High risk sexual behaviors?: No History of sexually transmitted infection?: No Currently employed?: No Childcare worker?: No Do you have indoor plumbing?: Yes Do you have electricity?: Yes Attestation statement:: This patient has been screened for Hepatitis A risk factors. I have reviewed the patient's past medical history: Yes Medical History: Reports:: Deep Vein Thrombosis, Hypertension Denies:: Cancer, Diabetes Mellitus Typ
[2021-04-18 13:42] VITALS: BP 151/98; PULSE 82; RESP 18; TEMP 37
== END 2021-04-18 13:43 | disposition home or self-care (01) ==
PROVIDERS: Emergency Provider Nurse Practitioner Family; PCP Family Medicine
DX: M25.561 Pain in right knee (principal); I10 Essential (primary) hypertension; F17.210 Nicotine dependence, cigarettes, uncomplicated
CPT/HCPCS: 73562; 99202; G0463

== ENCOUNTER 2021-06-08 10:52 | Emergency (ER) | payer BC, SELFPAY ==
[2021-06-08 13:05] VITALS: BP 168/98; PULSE 87; RESP 18; TEMP 36.7; O2SAT 97; BMI 36.8
--- NOTE | 2021-06-08 13:15 | HMH.EDUTC ---
[facility] [place] Impression: Sinusitis Qualifiers: Sinusitis location: unspecified location Chronicity: acute Recurrence: non-recurrent Qualified Code(s): J01.90 - Acute sinusitis, unspecified Pharyngitis Qualifiers: Pharyngitis/tonsillitis etiology: unspecified etiology Qualified Code(s): J02.9 - Acute pharyngitis, unspecified Disposition: Home, Self-Care Condition on Discharge: Good Instructions: DI for Pharyngitis/Tonsillopharyngitis -- Adult, DI for Sinusitis Additional Instructions: Drink plenty of fluids. Take tylenol or ibuprofen for pain or fever. Take the medications as directed. Follow up with your regular doctor. GO TO THE ER FOR ANY WORSENING SYMPTOMS Prescriptions: Ondansetron [Zofran 4mg ODT] 4 mg PO Q8HP PRN #20 tab PRN Reason: Nausea Transmission Status: Received by [facility] methylPREDNISolone [Medrol] 4 mg PO DIRECTED 6 Days #21 packet Transmission Status: Received by [facility] Azithromycin [Z-Al 250mg Tab*] 250 mg PO UD DOSE PK #6 tab Transmission Status: Received by [facility] Referrals: Josseline Cox MD [Primary Care Provider] - Forms: Work/School Release Time of Disposition: 13:40 Medical Decision Making - Medical Records Medical records reviewed: No: I reviewed the patient's medical records. - Wilder Inquiry Pt receiving controlled substance: No Vital Signs: 06/08/21 13:05 06/08/21 13:45 Temperature 98.0 F 98.0 F Temperature Source Oral Pulse Rate 87 Pulse Rate [Right Brachial] 87 Respiratory Rate 18 18 Blood Pressure 168/98 H Blood Pressure [Right Arm] 168/98 H Blood Pressure Mean [Right Arm] 121 Blood Pressure Source [Right Arm] Automatic Cuff Blood Pressure Position [Right Arm] Sitting 02 Sat by Pulse Oximetry 97 Oxygen Delivery Method Room Air - Lab Data Lab results reviewed: Yes: I reviewed the patient's lab results. [facility] [place] General Stated complaint: sinus pain Time Seen by Provider: 06/08/21 13:15 - History of Present Illness Provider Complaint: She states that she has had sore throat, sinus congestion, and a nonproductive cough for the past 3 days. - Related Data Home Medications Medication Instructions Recorded Confirmed Adalimumab [Humira] 80 mg SQ WEEKLY 02/18/19 06/08/21 Mercaptopurine 50 mg PO DAILY 02/18/19 06/08/21 Sertraline HCl [Zoloft 100mg 100 mg PO DAILY 02/18/19 06/08/21 tablet] hydroCHLOROthiazide [HCTZ 25mg 25 mg PO DAILY 07/22/20 06/08/21 tab] Previous Rx's Medication Instructions Recorded Azithromycin [Z-Al 250mg Tab*] 250 mg PO UD DOSE PK #6 tab 06/08/21 Ondansetron [Zofran 4mg ODT] 4 mg PO Q8HP PRN #20 tab 06/08/21 methylPREDNISolone [Medrol] 4 mg PO DIRECTED 6 Days #21 06/08/21 packet Allergies Allergy/AdvReac Type Severity Reaction Status Date / Time amoxicillin [From Augmentin] Allergy Intermediate hives Verified 05/07/21 10:59 clavulanic acid Allergy Intermediate hives Verified 05/07/21 10:59 [From Augmentin] shrimp Allergy Intermediate Verified 05/07/21 10:59 Sulfa (Sulfonamide Allergy Verified 05/07/21 10:59 Antibiotics) [facility] History - Hepatitis A Screen Attestation statement:: This patient has been screened for Hepatitis A risk factors. I have reviewed the patient's past medical history: Yes Medical History: Reports:: Deep Vein Thrombosis, Hypertension Denies:: Cancer, Diabetes Mellitus Type 1, Diabetes Mellitus Type 2, Internal Pacemaker, MRSA, Seizures Other Medical History: Reports: Other Other Surgeries: Yes: Colonoscopy, , Hysterectomy-Total, Hysterectomy-Partial, Other (fistula repair, nasal repair). No: Pacemaker Amputation: No Fractures: No - Social History Smoking Status: Current some day smoker Tobacco Type: cigarettes # Packs/Day (cigarettes): 1 Alcohol Intake: current Alcohol Intake Frequency:: holidays/special occasions only Substance Use Type: denies use
[2021-06-08 13:45] VITALS: BP 168/98; PULSE 87; RESP 18; TEMP 36.7; O2SAT 97
== END 2021-06-08 13:46 | disposition home or self-care (01) ==
PROVIDERS: Emergency Provider Nurse Practitioner Family; PCP Family Medicine
DX: J01.90 Acute sinusitis, unspecified (principal); J02.9 Acute pharyngitis, unspecified; I10 Essential (primary) hypertension; F17.210 Nicotine dependence, cigarettes, uncomplicated
CPT/HCPCS: 99212; C9803; G0463; U0003; U0005

== ENCOUNTER → 2021-10-14 11:20 | Outpatient (CLI) | payer OTHER, SELFPAY ==
[2021-10-14 12:36] LABS: Basophils # 0.1 K/mm3 (0-0.2); Basophils % 0.8 % (0.1-2.0); Eosinophils # 0.2 K/mm3 (0.0-0.4); Eosinophils % 1.6 % (0.1-12.0); Hematocrit 45.6 % (37.0-47.0); Hemoglobin 15.4 g/dL (12.2-16.2); Lymphocytes # 3.2 K/mm3 (0.7-4.5); Lymphocytes % 24.9 % (10-50); Mean Corpuscular HGB Conc 33.7 g/dL (31.8-35.4); Mean Corpuscular Hemoglobin 30.7 pg (27.0-31.2); Mean Corpuscular Volume 90.9 fl (81-99); Mean Platelet Volume 7.6 fl (7.4-10.4); Monocytes # 0.8 K/mm3 (0.1-1.0); Neutrophils # 8.5 K/mm3 (1.8-7.8); Neutrophils % 66.6 % (37.0-80.0); Platelet Count 479 K/mm3 (142-424); Red Blood Count 5.01 M/mm3 (4.20-5.40); Red Cell Distribution Width 12.7 % (11.5-17.5); White Blood Count 12.7 K/mm3 (4.8-10.8)
[2021-10-14 12:53] LABS: Alanine Aminotransferase 15 U/L (12-78); Alkaline Phosphatase 80 U/L (38-126); Anion Gap 12.7 mEq/L (5-15); Aspartate Amino Transferase 24 U/L (14-36); Bilirubin,Total 0.2 mg/dl (0.2-1.3); Blood Urea Nitrogen 12 mg/dl (7-17); Calcium 9.9 mg/dl (8.4-10.2); Carbon Dioxide 28 mmol/L (22.0-30.0); Chloride 102 mmol/L (98-107); Estimated Glomerular Filt Rate 110 ml/min (>60); GFR (African American) 133 ML/MIN (>60); Globulin 3.9 g/dL (1.3-3.2); Glucose 92 mg/dl (74-100); Potassium 4.7 mmoL/L (3.5-5.1); Sodium 138 mmol/L (136-145); Total Protein,Serum 7.9 g/dl (6.3-8.2)
[2021-10-14 12:58] LABS: C-Reactive Protein 29.5 mg/L (0-4)
[2021-10-14 13:10] LABS: 25-OH Vitamin D, Total 38.5 ng/mL (30-100)
[2021-10-14 13:11] LABS: Erythrocyte Sedimentation Rate 20 mm/hr (0-20)
[2021-10-14 13:43] LABS: Vitamin B12 667 pg/mL (239-931)
[2021-10-14 13:56] LABS: Iron 121 ug/dL (37-170)
[2021-10-14 14:06] LABS: Total Iron Binding Capacity 290 ug/dL (265-497)
[2021-10-14 14:32] LABS: Ferritin 42.3 ng/ml (6.24-137)
== END ==
PROVIDERS: PCP Family Medicine; Visit Provider Nurse Practitioner Family
DX: K50.10 Crohn's disease of large intestine without complications (principal); R19.7 Diarrhea, unspecified; E66.9 Obesity, unspecified; Z68.36 Body mass index [BMI] 36.0-36.9, adult
CPT/HCPCS: 36415; 80053; 82306; 82607; 82728; 83540; 83550; 85025; 85651; 86140

== ENCOUNTER → 2021-11-03 09:42 | Outpatient (POV) | payer OTHER, SELFPAY | PROVIDERS: Visit Provider Dermatology | DX: Z00.00 Encounter for general adult medical examination without abnormal findings (principal) ==

== ENCOUNTER → 2021-12-08 14:26 | Outpatient (POV) | payer OTHER, SELFPAY | PROVIDERS: Visit Provider Dermatology | DX: Z00.00 Encounter for general adult medical examination without abnormal findings (principal) ==

== ENCOUNTER → 2022-01-29 12:50 | Outpatient (CLI) | payer BC, SELFPAY ==
--- NOTE | 2022-01-29 12:53 | MM_ITS ---
PROCEDURE INFORMATION: Exam: MG Bilateral Screening 3D Mammography Exam date and time: 01/29/2022 12:55 PM Age: 42 years old Clinical indication: Screening examination. Her mother had breast cancer at age 74 and her sister had breast cancer at age 53. TECHNIQUE: Imaging protocol: Bilateral Screening tomosynthesis and 2D mammography including computer-aided detection (CAD) when performed. COMPARISON: 1. MG MA MAMMO SCRN DIGITL BILAT 09/03/2014 5:00 PM 2. MG MA MAMMO DIAG DIGITL BILAT 03/01/2013 2:43 PM 3. BREAST RT US 12/04/2013 10:40 AM 4. BREAST RT US 03/01/2013 3:43 PM FINDINGS: MAMMOGRAPHY: Breast composition: The breasts are heterogeneously dense, which may obscure small masses. Mass: Oval 1.7 cm mass in the right breast at 12 o'clock, 2-4 cm from the nipple (which may be in a similar location though smaller when compared to 09/03/2014 - comparison is limited limited by difference in positioning and technique). Architectural distortion: None. Calcifications: No suspicious calcifications. Asymmetric density: None. Skin thickening: None. Axillary adenopathy: None. IMPRESSION: Patient to be recalled for right sonography for further evaluation of mass in the right breast at 12 o'clock. Given the reported risk factors coupled with the patient's breast density, a breast cancer risk assessment may prove useful for further evaluation. ASSESSMENT: BI-RADS Category 0: Incomplete- Need Additional Imaging Evaluation and/or Prior Mammograms for Comparison
== END ==
PROVIDERS: PCP Family Medicine; Visit Provider Family Medicine
DX: Z12.31 Encounter for screening mammogram for malignant neoplasm of breast (principal)
CPT/HCPCS: 77063; 77067

== ENCOUNTER → 2022-02-12 13:14 | Outpatient (CLI) | payer BC, SELFPAY | PROVIDERS: PCP Family Medicine; Visit Provider Nurse Practitioner Family | DX: K50.10 Crohn's disease of large intestine without complications (principal); R19.7 Diarrhea, unspecified; L73.2 Hidradenitis suppurativa; R53.83 Other fatigue ==

== ENCOUNTER → 2022-02-16 09:54 | Outpatient (CLI) | payer BC, SELFPAY ==
[2022-02-16 10:38] LABS: Basophils # 0.2 K/mm3 (0-0.2); Basophils % 1.1 % (0.1-2.0); Eosinophils # 0.3 K/mm3 (0.0-0.4); Eosinophils % 1.9 % (0.1-12.0); Hematocrit 46.5 % (37.0-47.0); Hemoglobin 15.1 g/dL (12.2-16.2); Lymphocytes # 3.7 K/mm3 (0.7-4.5); Lymphocytes % 24.9 % (10-50); Mean Corpuscular HGB Conc 32.5 g/dL (31.8-35.4); Mean Corpuscular Hemoglobin 30.5 pg (27.0-31.2); Mean Corpuscular Volume 93.6 fl (81-99); Mean Platelet Volume 7.9 fl (7.4-10.4); Monocytes # 0.7 K/mm3 (0.1-1.0); Monocytes % 4.5 % (1.7-9.3); Neutrophils % 67.5 % (37.0-80.0); Platelet Count 460 K/mm3 (142-424); Red Blood Count 4.97 M/mm3 (4.20-5.40); Red Cell Distribution Width 14.2 % (11.5-17.5); White Blood Count 14.8 K/mm3 (4.8-10.8)
[2022-02-16 11:40] LABS: Erythrocyte Sedimentation Rate 83 mm/hr (0-20)
[2022-02-16 12:19] LABS: Alanine Aminotransferase 16 U/L (12-78); Albumin Level 4.1 g/dl (3.5-5.0); Albumin/Globulin Ratio 1.1 (1.1-1.8); Alkaline Phosphatase 93 U/L (38-126); Anion Gap 15.3 mEq/L (5-15); Aspartate Amino Transferase 22 U/L (14-36); Bilirubin,Total 0.2 mg/dl (0.2-1.3); Blood Urea Nitrogen 13 mg/dl (7-17); Calcium 10.1 mg/dl (8.4-10.2); Carbon Dioxide 28 mmol/L (22.0-30.0); Chloride 99 mmol/L (98-107); Estimated Glomerular Filt Rate 110 ml/min (>60); GFR (African American) 133 ML/MIN (>60); Globulin 3.7 g/dL (1.3-3.2); Glucose 77 mg/dl (74-100); Potassium 4.3 mmoL/L (3.5-5.1); Sodium 138 mmol/L (136-145); Total Protein,Serum 7.8 g/dl (6.3-8.2)
[2022-02-16 12:28] LABS: C-Reactive Protein 33.6 mg/L (0-4); Iron 65 ug/dL (37-170)
[2022-02-16 12:36] LABS: 25-OH Vitamin D, Total 32.2 ng/mL (30-100)
[2022-02-16 12:37] LABS: Total Iron Binding Capacity 306 ug/dL (265-497)
[2022-02-16 13:04] LABS: Ferritin 26.9 ng/ml (6.24-137)
[2022-02-16 13:12] LABS: Vitamin B12 765 pg/mL (239-931)
[2022-02-17 10:35] LABS: Hep B Core Ab, Total Negative (Negative)
[2022-02-19 15:27] LABS: QuantiFERON-TB Gold Plus Negative (Negative)
[2022-02-21 23:13] LABS: Calprotectin, Fecal 93 ug/g (0-120)
[2022-02-28 21:52] LABS: Hepatitis B Surface Antigen Negative
== END ==
PROVIDERS: PCP Family Medicine; Visit Provider Nurse Practitioner Family
DX: R53.83 Other fatigue (principal); K50.10 Crohn's disease of large intestine without complications; R19.7 Diarrhea, unspecified; L73.2 Hidradenitis suppurativa
CPT/HCPCS: 36415; 80053; 82306; 82607; 82728; 83540; 83550; 83993; 85025; 85651; 86140; 86480; 86704; 87340

== ENCOUNTER 2022-02-26 09:24 | Emergency (ER) | payer BC, SELFPAY ==
--- NOTE | 2022-02-26 10:39 | EXP.UTC ---
Discharge Plan Disposition Patient Disposition: Home, Self-Care Condition: Good Prescriptions Prescriptions: New methylprednisolone 4 mg Tablets,Dose Pack 4 mg PO DIRECTED Qty: 21 0RF No Action sertraline 100 MG tablet 100 mg PO DAILY mercaptopurine 50 MG tablet 50 mg PO DAILY adalimumab 40 MG/0.8 ML syringe kit 80 mg SQ WEEKLY hydrochlorothiazide 25 MG tablet 25 mg PO DAILY ondansetron 4 MG tablet,disintegrating 4 mg PO Q8HP PRN (Reason: Nausea) Qty: 20 0RF Referrals Follow up/Referrals: Josseline Cox MD [Primary Care Provider] - See instructions Activity Restrictions/Add. Instructions Additional Instructions/Restrictions: Rest the extremity, Elevate the extremity as tolerated while you are resting. Take the medication as directed. Don't start the steroids (methylprednisone) until tomorrow, since you had the shot here today. Follow up with you orthopedist as discussed. Follow up with your regular doctor. GO TO THE ER FOR ANY WORSENING SYMPTOMS Clinical Impressions Clinical Impression: Knee pain, right Stand Alone Forms Stand Alone Forms: Work/School Release Discharge ED Provider: [facility] General Stated complaint: R and L knee pain Time Seen by Provider: 02/26/22 10:39 History of Present Illness Provider Complaint: She has a long history of arthritis of her knees. She is having worsening bilateral knee pain over the past 1 week. She has an appointment with her orthopedist, but she came here today to see about getting some steroids. Related Data Home Medications Medication Instructions Recorded Confirmed adalimumab 40 mg/0.8 mL 80 mg SQ WEEKLY CROHNS 02/18/19 06/18/21 subcutaneous syringe kit mercaptopurine 50 mg tablet 50 mg PO DAILY CROHNS 02/18/19 06/18/21 sertraline 100 mg tablet 100 mg PO DAILY Anxiety 02/18/19 06/18/21 hydrochlorothiazide 25 mg tablet 25 mg PO DAILY Fluid 07/22/20 06/18/21 Previous Rx's Medication Instructions Recorded ondansetron 4 mg disintegrating 4 mg PO Q8HP PRN Nausea #20 tabs 06/08/21 tablet methylprednisolone 4 mg tablets in 4 mg PO DIRECTED #21 tabs 02/26/22 a dose pack Allergies Allergy/AdvReac Type Severity Reaction Status Date / Time amoxicillin [From Augmentin] Allergy Intermediate hives Verified 02/26/22 10:42 clavulanic acid Allergy Intermediate hives Verified 02/26/22 10:42 [From Augmentin] shrimp Allergy Intermediate Verified 02/26/22 10:42 Sulfa (Sulfonamide Allergy Verified 02/26/22 10:42 Antibiotics) [facility] Disclaimer: The information contained in this section may have been updated after the patient was seen, as this information can be updated by other users. Medical History Abnormal EKG Crohn disease Daytime somnolence Dyspnea Group G streptococcal infection HTN (hypertension) Tobacco dependence syndrome Social History Smoking Status: Current some day smoker tobacco type: cigarettes packs per day: 1 second hand exposure: Yes alcohol intake: current substance use type: denies use current occupational status: employed Travel in the last 8 weeks: None household members: spouse housing: house current occupational exposures/hazards: No caffeine: No ROS Obtained: Yes All systems reviewed & no additional complaints except as documented Constitutional Constitutional: Denies chills and Denies fever(s) Musculoskeletal Musculoskeletal: Reports as per HPI Integumentary/Breasts Skin/Breast: Denies redness, Denies rash and Denies wounds Neurologic Neurologic: Denies paresthesias Physical Exam General General appearance: alert and in no apparent distress Head Head exam: atraumatic, normocephalic and normal inspection Eye Eye exam: Present normal appearance, PERRL and EOMI ENT ENT exam: Present normal exam, no
[2022-02-26 10:40] VITALS: BP 149/91; PULSE 88; RESP 16; TEMP 37.1; O2SAT 98; BMI 37.1
[2022-02-26 11:18] VITALS: BP 149/91; PULSE 88; RESP 16; TEMP 37.1
== END 2022-02-26 11:24 | disposition home or self-care (01) ==
PROVIDERS: Emergency Provider Nurse Practitioner Family; PCP Family Medicine
DX: M25.561 Pain in right knee (principal); M25.562 Pain in left knee; Z88.1 Allergy status to other antibiotic agents; Z88.2 Allergy status to sulfonamides
CPT/HCPCS: 96372; 99212; G0463

== ENCOUNTER → 2022-03-11 08:54 | Outpatient (CLI) | payer BC, SELFPAY ==
--- NOTE | 2022-03-11 08:58 | XR_ITS ---
FINAL REPORT CLINICAL HISTORY: knee pain FINDINGS: Three views of the right knee reveal no evidence of fracture or dislocation. The bony alignment is normal. The joint spaces are preserved. There is no evidence of joint effusion. No localized soft tissue abnormality is identified. IMPRESSION: No acute abnormality identified. Reviewed, Interpreted and Dictated by Gabriel Luciano III, MD Transcribed by Jyoti Walton Authenticated and [facility]
--- NOTE | 2022-03-11 08:58 | XR_ITS ---
FINAL REPORT CLINICAL HISTORY: knee pain FINDINGS: LEFT KNEE: Three views of the left knee were obtained. There is no acute fracture or dislocation. Visualized joint spaces are normally aligned. There is no joint effusion. Soft tissues are unremarkable. IMPRESSION: No acute bony abnormality. Reviewed, Interpreted and Dictated by Gabriel Luciano III, MD Transcribed by Jyoti Walton Authenticated and [facility]
== END ==
LOC: RAD 08:55
PROVIDERS: PCP Family Medicine; Visit Provider Orthopaedic Surgery
DX: M25.561 Pain in right knee (principal); M25.562 Pain in left knee
CPT/HCPCS: 73562

== ENCOUNTER → 2022-04-20 14:28 | Outpatient (CLI) | payer BC, SELFPAY ==
[2022-04-23 16:15] LABS: Calprotectin, Fecal 493 ug/g (0-120)
[2022-04-29 14:13] LABS: Pancreatic Elastase, Fecal >500 (>200)
== END ==
LOC: LAB 14:29
PROVIDERS: PCP Family Medicine; Visit Provider Internal Medicine Gastroenterology
DX: K50.10 Crohn's disease of large intestine without complications (principal); L73.2 Hidradenitis suppurativa; R14.0 Abdominal distension (gaseous); R15.2 Fecal urgency
CPT/HCPCS: 82656; 83993

== ENCOUNTER 2022-05-03 11:38 | Outpatient (CLI) | payer BC, SELFPAY ==
[2022-05-03 12:25] VITALS: BP 149/91; PULSE 82; RESP 18; TEMP 36.3; O2SAT 100
[2022-05-03 13:15] VITALS: BP 159/92; PULSE 77; RESP 18; O2SAT 100
== END 2022-05-03 13:15 | disposition home or self-care (01) ==
LOC: INF 11:39
PROVIDERS: PCP Family Medicine; Visit Provider Internal Medicine Gastroenterology
DX: K50.10 Crohn's disease of large intestine without complications (principal)
CPT/HCPCS: 96413; J3590

== ENCOUNTER → 2022-05-10 11:10 | Outpatient (CLI) | payer BC, SELFPAY ==
--- NOTE | 2022-05-10 11:16 | XR_ITS ---
FINAL REPORT CLINICAL HISTORY: wrist pain x 10 days , no injury FINDINGS: AP, oblique, and lateral views of the right wrist were obtained. There is no prior exam for comparison. There is no acute fracture or dislocation. The joint spaces are preserved. The soft tissues are normal. IMPRESSION: No acute osseous abnormality of the right wrist. If pain persists, MR is recommended. Reviewed, Interpreted and Dictated by Faby Pike MD Transcribed by Adelina Mitchell Authenticated and [facility]
== END ==
LOC: RAD 11:11
PROVIDERS: PCP Family Medicine; Visit Provider Physician Assistant Surgical
DX: M25.531 Pain in right wrist (principal)
CPT/HCPCS: 73110

== ENCOUNTER → 2022-05-19 08:08 | Outpatient (CLI) | payer BC, SELFPAY ==
--- NOTE | 2022-05-19 08:08 | MR_ITS ---
FINAL REPORT CLINICAL HISTORY: RIGHT WRIST PAIN AND SWELLING, NO INJURY COMPARISON: none FINDINGS: Multiplanar MR imaging of the right wrist was performed without contrast. There is mild degenerative change. There are multiple cysts in the carpal bones. There is a partial tear at the scaphoid attachment to the scapholunate ligament. Lunotriquetral ligament appears intact. There is a partial tear at the ulnar attachment of the triangular fibrocartilage. The flexor and extensor tendons are intact. There is a 5 mm presumed ganglion cyst at the volar radial aspect of the radiocarpal joint. No focal abnormality is identified of the median nerve. IMPRESSION: Partial tear at the scaphoid attachment of the scapholunate ligament. Partial tear at the ulnar attachment of the triangular fibrocartilage. 5 mm presumed ganglion cyst. Reviewed, Interpreted and Dictated by Gabriel Luciano III, MD Transcribed by Kriss Guevara Authenticated and [facility]
== END ==
LOC: RAD 08:08
PROVIDERS: PCP Family Medicine; Visit Provider Physician Assistant Surgical
DX: M25.531 Pain in right wrist (principal)
CPT/HCPCS: 73221

== ENCOUNTER → 2022-07-02 14:01 | Outpatient (CLI) | payer BC, SELFPAY ==
[2022-07-02 15:06] LABS: Basophils # 0.1 K/mm3 (0-0.2); Basophils % 0.8 % (0.1-2.0); Eosinophils # 0.4 K/mm3 (0.0-0.4); Eosinophils % 2.3 % (0.1-12.0); Hematocrit 47.6 % (37.0-47.0); Hemoglobin 14.9 g/dL (12.2-16.2); Lymphocytes # 3.5 K/mm3 (0.7-4.5); Lymphocytes % 21.4 % (10-50); Mean Corpuscular HGB Conc 31.3 g/dL (31.8-35.4); Mean Corpuscular Hemoglobin 29.3 pg (27.0-31.2); Mean Corpuscular Volume 93.7 fl (81-99); Mean Platelet Volume 7.3 fl (7.4-10.4); Monocytes # 0.8 K/mm3 (0.1-1.0); Monocytes % 5.2 % (1.7-9.3); Neutrophils # 11.4 K/mm3 (1.8-7.8); Neutrophils % 70.3 % (37.0-80.0); Platelet Count 542 K/mm3 (142-424); Red Blood Count 5.08 M/mm3 (4.20-5.40); Red Cell Distribution Width 14.3 % (11.5-17.5); White Blood Count 16.2 K/mm3 (4.8-10.8)
[2022-07-02 15:11] LABS: MANUAL DIFFERENTIAL MANUAL DIFFERENTIAL (MANUAL DIFF)
[2022-07-02 15:55] LABS: Alanine Aminotransferase 36 U/L (12-78); Albumin Level 4.1 g/dl (3.5-5.0); Albumin/Globulin Ratio 1.1 (1.1-1.8); Alkaline Phosphatase 116 U/L (38-126); Anion Gap 11.6 mEq/L (5-15); Aspartate Amino Transferase 35 U/L (14-36); Bilirubin,Total 0.4 mg/dl (0.2-1.3); Blood Urea Nitrogen 13 mg/dl (7-17); Calcium 9.5 mg/dl (8.4-10.2); Carbon Dioxide 25 mmol/L (22.0-30.0); Chloride 102 mmol/L (98-107); Estimated Glomerular Filt Rate 110 ml/min (>60); GFR (African American) 133 ML/MIN (>60); Globulin 3.6 g/dL (1.3-3.2); Glucose 108 mg/dl (74-100); Potassium 4.6 mmoL/L (3.5-5.1); Sodium 134 mmol/L (136-145); Total Protein,Serum 7.7 g/dl (6.3-8.2)
[2022-07-02 16:00] LABS: C-Reactive Protein 26.5 mg/L (0-4)
[2022-07-02 16:12] LABS: 25-OH Vitamin D, Total 32.8 ng/mL (30-100)
[2022-07-02 16:35] LABS: Iron 79 ug/dL (37-170)
[2022-07-02 16:44] LABS: Total Iron Binding Capacity 329 ug/dL (265-497)
[2022-07-02 16:45] LABS: Vitamin B12 763 pg/mL (239-931)
[2022-07-02 17:11] LABS: Ferritin 46.4 ng/ml (6.24-137)
[2022-07-02 18:36] LABS: Erythrocyte Sedimentation Rate 90 mm/hr (0-20)
[2022-07-02 18:39] LABS: Eosinophils % 2 % (0-3); Lymphocytes % 25 % (10-50); Neutrophils % 73 % (42-76); Platelet Estimate Slight Increase; RBC Morphology Normal; Total Cells Counted 100
== END ==
LOC: LAB 14:01
PROVIDERS: PCP Family Medicine; Visit Provider Internal Medicine Gastroenterology
DX: K50.10 Crohn's disease of large intestine without complications (principal); E66.9 Obesity, unspecified; Z68.37 Body mass index [BMI] 37.0-37.9, adult
CPT/HCPCS: 36415; 80053; 82306; 82607; 82728; 83540; 83550; 85007; 85025; 85651; 86140

== ENCOUNTER → 2022-10-07 12:04 | Outpatient (CLI) | payer BC, SELFPAY ==
[2022-10-07 12:38] LABS: Basophils # 0.1 K/mm3 (0-0.2); Basophils % 0.5 % (0.1-2.0); Eosinophils # 0.4 K/mm3 (0.0-0.4); Eosinophils % 2.4 % (0.1-12.0); Hematocrit 49.5 % (37.0-47.0); Hemoglobin 15.9 g/dL (12.2-16.2); Lymphocytes # 3.2 K/mm3 (0.7-4.5); Lymphocytes % 17.5 % (10-50); Mean Corpuscular HGB Conc 32.2 g/dL (31.8-35.4); Mean Corpuscular Hemoglobin 28.7 pg (27.0-31.2); Mean Corpuscular Volume 89.1 fl (81-99); Monocytes # 0.9 K/mm3 (0.1-1.0); Monocytes % 4.8 % (1.7-9.3); Neutrophils # 13.6 K/mm3 (1.8-7.8); Neutrophils % 74.9 % (37.0-80.0); Platelet Count 453 K/mm3 (142-424); Red Blood Count 5.56 M/mm3 (4.20-5.40); Red Cell Distribution Width 13.7 % (11.5-17.5); White Blood Count 18.2 K/mm3 (4.8-10.8)
[2022-10-07 13:03] LABS: MANUAL DIFFERENTIAL MANUAL DIFFERENTIAL (MANUAL DIFF)
[2022-10-07 13:23] LABS: Erythrocyte Sedimentation Rate 11 mm/hr (0-20)
[2022-10-07 13:46] LABS: Alanine Aminotransferase 19 U/L (12-78); Albumin Level 4.2 g/dl (3.5-5.0); Albumin/Globulin Ratio 1.1 (1.1-1.8); Alkaline Phosphatase 97 U/L (38-126); Anion Gap 14.6 mEq/L (5-15); Aspartate Amino Transferase 22 U/L (14-36); Bilirubin,Total 0.3 mg/dl (0.2-1.3); Blood Urea Nitrogen 13 mg/dl (7-17); Carbon Dioxide 24 mmol/L (22.0-30.0); Chloride 102 mmol/L (98-107); Estimated Glomerular Filt Rate 110 ml/min (>60); GFR (African American) 133 ML/MIN (>60); Globulin 3.8 g/dL (1.3-3.2); Glucose 104 mg/dl (74-100); Potassium 4.6 mmoL/L (3.5-5.1); Sodium 136 mmol/L (136-145)
[2022-10-07 13:51] LABS: C-Reactive Protein 29.9 mg/L (0-4)
[2022-10-07 14:03] LABS: 25-OH Vitamin D, Total 34.6 ng/mL (30-100)
[2022-10-07 15:01] LABS: Iron 66 ug/dL (37-170)
[2022-10-07 15:11] LABS: Total Iron Binding Capacity 329 ug/dL (265-497)
[2022-10-07 15:38] LABS: Ferritin 32.9 ng/ml (6.24-137)
[2022-10-07 15:43] LABS: Lymphocytes % 15 % (10-50); Monocytes % 4 % (2-9); Neutrophils % 81 % (42-76); Platelet Estimate Slight Increase; RBC Morphology Normal; Total Cells Counted 100
[2022-10-07 17:13] LABS: Vitamin B12 785 pg/mL (239-931)
== END ==
LOC: LAB 12:05
PROVIDERS: PCP Family Medicine; Visit Provider Nurse Practitioner Family
DX: K50.10 Crohn's disease of large intestine without complications (principal); R19.7 Diarrhea, unspecified; R53.83 Other fatigue
CPT/HCPCS: 36415; 80053; 82306; 82607; 82728; 83540; 83550; 85007; 85025; 85651; 86140

== ENCOUNTER → 2022-12-14 13:19 | Outpatient (POV) | payer BC, SELFPAY | PROVIDERS: Visit Provider Dermatology | DX: Z00.00 Encounter for general adult medical examination without abnormal findings (principal) ==

== ENCOUNTER → 2023-02-07 12:42 | Outpatient (CLI) | payer BC, SELFPAY ==
--- NOTE | 2023-02-07 12:45 | MM_ITS ---
PROCEDURE INFORMATION: Exam: MG Bilateral Screening 3D Mammography Exam date and time: 02/07/2023 12:47 PM Age: 43 years old Clinical indication: Screening examination TECHNIQUE: Imaging protocol: Bilateral Screening tomosynthesis and 2D mammography including computer-aided detection (CAD) when performed. COMPARISON: 1. MG MM DIG SCREENING MAMM BI W/CAD 01/29/2022 12:55 PM 2. MG MA MAMMO SCRN DIGITL BILAT 09/03/2014 5:00 PM FINDINGS: MAMMOGRAPHY: Breast composition: The breasts are heterogeneously dense, which may obscure small masses. Mass: None. Architectural distortion: None. Calcifications: No suspicious calcifications. Asymmetric density: None. Skin thickening: None. Axillary adenopathy: None. IMPRESSION: No mammographic evidence of malignancy. Annual screening is recommended unless otherwise clinically indicated. ASSESSMENT: BI-RADS Category 1: Negative
== END ==
PROVIDERS: PCP Family Medicine; Visit Provider Family Medicine
DX: Z12.31 Encounter for screening mammogram for malignant neoplasm of breast (principal)
CPT/HCPCS: 77063; 77067

== ENCOUNTER 2023-02-09 11:21 | Emergency (ER) | payer BC, SELFPAY ==
[2023-02-09 11:30] VITALS: BP 128/85; PULSE 93; RESP 18; TEMP 37.1; O2SAT 97; BMI 36.3
--- NOTE | 2023-02-09 11:54 | EXP.UTC ---
Discharge Plan Disposition Patient Disposition: Home, Self-Care Condition: Good Prescriptions Prescriptions: New prednisone [prednisone] 20 mg tablet 20 mg PO BID Qty: 10 0RF amoxicillin [amoxicillin] 500 mg tablet 500 mg PO BID 10 Days Qty: 20 0RF No Action mercaptopurine 50 MG tablet 50 mg PO DAILY hydrochlorothiazide 25 MG tablet 25 mg PO DAILY buspirone 5 mg tablet 5 mg PO DAILY metformin 500 mg tablet 500 mg PO DAILY doxycycline hyclate 100 mg capsule 100 mg PO BID spironolactone 100 mg tablet 100 mg PO DAILY propranolol 60 mg capsule,extended release 24 hr 60 mg PO DAILY sertraline 100 mg tablet 100 mg PO DAILY lamotrigine 25 mg tablet 25 mg PO DAILY omeprazole 20 mg capsule,delayed release(DR/EC) 20 mg PO DAILY Referrals Follow up/Referrals: Josseline Cox MD [Primary Care Provider] - See instructions Activity Restrictions/Add. Instructions Additional Instructions/Restrictions: Start antibiotic patient to take as ordered for a full length of time even if you feel better. Sinus infections do not get better overnight. It may take 2-3 days to notice much improvement so be sure to use conservative measures as discussed for symptoms. Flonase 1 spray each nostril daily to help with nasal congestion, sinus and ear pressure/information Increase fluids Humidifier/vaporizer as needed Tylenol and ibuprofen as needed for fever or pain. If symptoms do not improve or get worse return or be seen in the ER Follow-up with primary care this week Clinical Impressions Clinical Impression: Sinusitis Qualifiers: Sinusitis location: maxillary Chronicity: acute Recurrence: non-recurrent Qualified Code(s): J01.00 - Acute maxillary sinusitis, unspecified Instructions Patient Instructions: DI for Sinusitis Discharge ED Provider: Eriberto ([facility] [place] General Stated complaint: upper resp, sore throat Mode of Arrival: Ambulatory Source of Information: Patient Limitations: No Limitations Time Seen by Provider: 02/09/23 11:54 Description of Symptoms (Recalled from Triage Doc. by RN): sinus infection HEENT Symptoms (Recalled from RN notes): Yes Resp Symptoms (Recalled from RN notes): No Skin Symptoms (Recalled from RN notes): No MS Symptoms (Recalled from RN notes): No Functional Status (Recalled from RN notes): n/a History of Present Illness Provider Complaint: 43 yr old female presents for rt ear pain, sinus congestion, sinus pressure and cough Related Data Home Medications Medication Instructions Recorded Confirmed mercaptopurine 50 mg tablet 50 mg PO DAILY CROHNS 02/18/19 02/09/23 hydrochlorothiazide 25 mg tablet 25 mg PO DAILY Fluid 07/22/20 02/09/23 buspirone 5 mg tablet 5 mg PO DAILY 02/09/23 02/09/23 doxycycline hyclate 100 mg capsule 100 mg PO BID 02/09/23 02/09/23 lamotrigine 25 mg tablet 25 mg PO DAILY 02/09/23 02/09/23 metformin 500 mg tablet 500 mg PO DAILY 02/09/23 02/09/23 omeprazole 20 mg capsule,delayed 20 mg PO DAILY 02/09/23 02/09/23 release propranolol 60 mg capsule,24 60 mg PO DAILY 02/09/23 02/09/23 hr,extended release sertraline 100 mg tablet 100 mg PO DAILY 02/09/23 02/09/23 spironolactone 100 mg tablet 100 mg PO DAILY 02/09/23 02/09/23 Previous Rx's Medication Instructions Recorded amoxicillin 500 mg tablet 500 mg PO BID 10 days #20 tabs 02/09/23 prednisone 20 mg tablet 20 mg PO BID #10 tabs 02/09/23 Allergies Allergy/AdvReac Type Severity Reaction Status Date / Time amoxicillin [From Augmentin] Allergy Intermediate hives Verified 02/09/23 11:37 clavulanic acid Allergy Intermediate hives Verified 02/09/23 11:37 [From Augmentin] shrimp Allergy Intermediate Verified 02/09/23 11:37 Sulfa (Sulfonamide Allergy Verified 02/09/23 11:37 Antibiotics) Worker's Comp Is this a Worker's Comp case?: No [facility] Disclaimer: The information contained in this section may have be
[2023-02-09 12:17] VITALS: BP 128/85; PULSE 93; RESP 18; TEMP 37.1; O2SAT 97
[2023-02-09 12:17] LABS: Adenovirus,PCR Not Detected (NotDetected); Coronavirus 229E Not Detected (NotDetected); Coronavirus NL63 Not Detected (NotDetected); Coronavirus OC43 Not Detected (NotDetected); Coronovirus HKU1,PCR Not Detected (NotDetected); Human Metapneumovirus Not Detected (NotDetected); Influenza A, PCR Not Detected (NotDetected); Influenza AH1, 2009 Not Detected (NotDetected); Influenza AH1, PCR Not Detected (NotDetected); Influenza AH3,PCR Not Detected (NotDetected); Influenza B, PCR Not Detected (NotDetected)
[2023-02-09 12:18] LABS: Coronavirus 19, PCR Not Detected (NotDetected); Parainfluenza 1, PCR Not Detected (NotDetected); Parainfluenza 2, PCR Not Detected (NotDetected); Parainfluenza 3, PCR Not Detected (NotDetected); Parainfluenza 4, PCR Not Detected (NotDetected); Respiratory Syncytial Virus Not Detected (NotDetected)
[2023-02-09 13:53] LABS: Rhinovirus/Enterovirus Detected (NotDetected)
== END 2023-02-09 12:17 | disposition home or self-care (01) ==
PROVIDERS: Emergency Provider Nurse Practitioner Family; PCP Family Medicine
DX: J01.00 Acute maxillary sinusitis, unspecified (principal); H66.91 Otitis media, unspecified, right ear; B34.1 Enterovirus infection, unspecified; R07.0 Pain in throat; R09.81 Nasal congestion; R05.9 Cough, unspecified; I10 Essential (primary) hypertension; Z87.891 Personal history of nicotine dependence
CPT/HCPCS: 87632; 87635; 99212; 99214; G0463

== ENCOUNTER → 2023-03-01 09:27 | Outpatient (CLI) | payer BC, SELFPAY ==
--- NOTE | 2023-03-01 09:31 | XR_ITS ---
FINAL REPORT CLINICAL HISTORY: right shoulder injury COMPARISON: None FINDINGS: RIGHT SHOULDER Three views demonstrate no acute fracture or dislocation. The joint spaces appear normal. The visualized bony structures are well aligned. No soft tissue abnormality is seen. IMPRESSION: No acute process. Reviewed, Interpreted and Dictated by Gabriel Luciano III, MD Transcribed by Kajal Ivey Authenticated and . [facility]
== END ==
PROVIDERS: PCP Family Medicine; Visit Provider Orthopaedic Surgery
DX: M25.511 Pain in right shoulder (principal); S49.91XA Unspecified injury of right shoulder and upper arm, initial encounter
CPT/HCPCS: 73030

== ENCOUNTER → 2023-03-08 11:07 | Outpatient (CLI) | payer BC, SELFPAY ==
--- NOTE | 2023-03-08 11:35 | US_ITS ---
FINAL REPORT CLINICAL HISTORY: RUQ PAIN,NAUSEA FINDINGS: RIGHT UPPER QUADRANT ULTRASOUND Sonographic images of the right upper quadrant were obtained. The pancreas is partially obscured.The liver has an unremarkable appearance. There is sludge in the gallbladder. The common duct measures 3 mm. Limited images of the right kidney are normal. IMPRESSION: Gallbladder sludge. Reviewed, Interpreted and Dictated by Carmelo Serrano MD Transcribed by Adelina Mitchell Authenticated and . [facility]
--- NOTE | 2023-03-08 15:37 | MR_ITS ---
FINAL REPORT CLINICAL HISTORY: BILATERAL NECK pain. HEADACHE FINDINGS: Multi planar MR imaging was obtained of the cervical spine. There is abnormal decreased signal throughout the cervical discs. Disc degeneration is seen throughout, more evident at C6-7. There is no malalignment. The cervical cord demonstrates normal signal and configuration. C2-C3: There is no evidence of significant disc bulge or protrusion. There is no significant facet hypertrophy. C3-C4: There is no evidence of significant disc bulge or protrusion. There is no significant facet hypertrophy. C4-C5: Mild diffuse disc bulge is present. There is no evidence of significant disc bulge or protrusion. There is no significant facet hypertrophy. C5-C6: There is no evidence of significant disc bulge or protrusion. There is no significant facet hypertrophy. C6-C7: Mild left paracentral disc protrusion is present with mild spinal canal compromise. C7-T1: There is no evidence of significant disc bulge or protrusion. There is no significant facet hypertrophy. IMPRESSION: Left paracentral disc protrusion at C6-7 with mild spinal canal compromise. Reviewed, Interpreted and Dictated by Carmelo Serrano MD Transcribed by Adelina Mitchell Authenticated and [facility]
== END ==
PROVIDERS: PCP Family Medicine; Visit Provider Orthopaedic Surgery
DX: M54.2 Cervicalgia (principal); R10.11 Right upper quadrant pain; R11.0 Nausea
CPT/HCPCS: 72141; 76376; 76705

== ENCOUNTER 2023-04-06 07:58 | Outpatient (CLI) | payer BC, SELFPAY ==
--- NOTE | 2023-04-06 08:23 | CT_ITS ---
FINAL REPORT CLINICAL HISTORY: abdominal pain/right upper quad COMPARISON: None FINDINGS: CT OF THE ABDOMEN AND PELVIS WITH CONTRAST Axial CT images of the abdomen and pelvis were obtained after the administration of oral and iv contrast. Coronal reformatted images were also obtained and reviewed.This study was performed with techniques to keep radiation doses as low as reasonably achievable (ALARA). Individualized dose reduction techniques using automated exposure control or adjustment of mA and/or kV according to the patient's size were employed. Abdomen: The lung bases are clear. The heart is normal in size. The liver has an unremarkable appearance, without evidence of mass or biliary ductal dilatation. The spleen is unremarkable. No adrenal mass is present. The pancreas has an unremarkable appearance. The kidneys are normal, without evidence of mass or hydronephrosis. The aorta is normal in caliber. There is no free fluid or adenopathy. No mass or abnormal fluid collection is seen. Pelvis: The appendix normal. The urinary bladder is unremarkable. Post hysterectomy. There is a 31 mm probable cyst in the left ovary. There are tubular areas of abnormal attenuation in the left ischial rectal fossa extending to the left gluteal surface. The appearance is worrisome for perianal fistulas or other localized inflammatory process. Multiple mildly enlarged lymph nodes are likely reactive. IMPRESSION: Findings worrisome for perianal fistulas or other localized inflammatory process. 31 mm probable cyst left ovary. Reviewed, Interpreted and Dictated by Gabriel Luciano III, MD Transcribed by Kriss Guevara Authenticated and . [facility]
[2023-04-06 08:35] LABS: Blood Urea Nitrogen 11 mg/dl (7-17); Estimated Glomerular Filt Rate 91 ml/min (>60); GFR (African American) 111 ML/MIN (>60)
[2023-04-06] MEDS: BARIUM SULFATE(READI-CAT2);450ML BOTTLE 450 ML PO (10:47)
[2023-04-06] MEDS: SODIUM CHLORIDE 0.9% 10ML SYR (RAD ONLY) 10 ML IV (10:47)
[2023-04-06] MEDS: IOPAMIDOL-370 (76%);100ML BOTTLE 75 ML IV (10:47)
== END 2023-04-06 23:59 ==
PROVIDERS: PCP Family Medicine; Visit Provider Surgery
DX: R10.11 Right upper quadrant pain (principal)
CPT/HCPCS: 36415; 74177; 82565; 84520; Q9967

== ENCOUNTER 2023-04-07 10:21 | Outpatient (CLI) | payer BC, SELFPAY ==
--- NOTE | 2023-04-07 10:21 | NM_ITS ---
FINAL REPORT CLINICAL HISTORY: right upper quad pain no stones on u/s done 03/08/23 10:35am 8.23 mct tc choletec 11:40 am 2mcg of cck injected into lt ant pain during cck COMPARISON: None FINDINGS: Sequential anterior projection images of the abdomen were obtained after the intravenous injection of 8.23 mCi technetium 99m Choletec. There is normal uptake of radiotracer by the liver. The bile ducts are visualized by 5 minutes. Gallbladder activity is seen by 25 minutes. Bowel activity is noted by 5 minutes. After 1 hour, 2 ?g of CCK was injected intravenously for calculation of gallbladder ejection fraction. The gallbladder ejection fraction is 75 %, which is within normal limits. IMPRESSION: No evidence of cystic duct or bile duct obstruction. Normal gallbladder ejection fraction of 75 %. Reviewed, Interpreted and Dictated by Gabriel Luciano III, MD Transcribed by Kriss Guevara Authenticated and [facility]
[2023-04-07] MEDS: SINCALIDE 2 MCG in 0.9 % SODIUM CHLORIDE 50 ML 100 MCG IV (12:37)
[2023-04-07] MEDS: SODIUM CHLORIDE 0.9% 10ML SYR (RAD ONLY) 10 ML IV (12:37)
[2023-04-07] MEDS: ISOTOPE CHOLETECH;1 DOSE (UP TO 15 MCI) IV (12:37)
== END 2023-04-07 23:59 ==
LOC: RAD 10:21
PROVIDERS: PCP Family Medicine; Visit Provider Surgery
DX: R10.11 Right upper quadrant pain (principal)
CPT/HCPCS: 78227; A9537; J2805

== ENCOUNTER 2023-04-19 10:50 | Outpatient (CLI) | payer BC, SELFPAY ==
[2023-04-19 11:07] LABS: Basophils # 0.1 K/mm3 (0-0.2); Basophils % 0.7 % (0.1-2.0); Eosinophils # 0.2 K/mm3 (0.0-0.4); Eosinophils % 1.5 % (0.1-12.0); Hematocrit 49.5 % (37.0-47.0); Hemoglobin 16.4 g/dL (12.2-16.2); Lymphocytes # 3.1 K/mm3 (0.7-4.5); Lymphocytes % 22.7 % (10-50); Mean Corpuscular HGB Conc 33.1 g/dL (31.8-35.4); Mean Corpuscular Hemoglobin 31.1 pg (27.0-31.2); Mean Platelet Volume 7.9 fl (7.4-10.4); Monocytes # 0.7 K/mm3 (0.1-1.0); Monocytes % 5.1 % (1.7-9.3); Neutrophils # 9.6 K/mm3 (1.8-7.8); Platelet Count 372 K/mm3 (142-424); Red Blood Count 5.27 M/mm3 (4.20-5.40); Red Cell Distribution Width 13.6 % (11.5-17.5); White Blood Count 13.8 K/mm3 (4.8-10.8)
[2023-04-19 11:34] LABS: Chloride 100 mmol/L (98-107); Potassium 4.2 mmoL/L (3.5-5.1); Sodium 136 mmol/L (136-145)
[2023-04-19 11:37] LABS: Alanine Aminotransferase 22 U/L (12-78); Albumin Level 4.2 g/dl (3.5-5.0); Albumin/Globulin Ratio 1.2 (1.1-1.8); Alkaline Phosphatase 69 U/L (38-126); Anion Gap 12.2 mEq/L (5-15); Aspartate Amino Transferase 26 U/L (14-36); Bilirubin,Total 0.5 mg/dl (0.2-1.3); Blood Urea Nitrogen 10 mg/dl (7-17); Calcium 9.6 mg/dl (8.4-10.2); Carbon Dioxide 28 mmol/L (22.0-30.0); Estimated Glomerular Filt Rate 109 ml/min (>60); GFR (African American) 132 ML/MIN (>60); Globulin 3.6 g/dL (1.3-3.2); Glucose 93 mg/dl (74-100); Total Protein,Serum 7.8 g/dl (6.3-8.2)
== END 2023-04-19 23:59 ==
LOC: LAB 10:50
PROVIDERS: PCP Family Medicine; Visit Provider Surgery
DX: K82.9 Disease of gallbladder, unspecified (principal); Z01.812 Encounter for preprocedural laboratory examination
CPT/HCPCS: 36415; 80053; 85025

== ENCOUNTER 2023-04-28 13:15 | Outpatient (CLI) | payer BC, SELFPAY ==
[2023-04-28 14:15] LABS: Basophils # 0.1 K/mm3 (0-0.2); Basophils % 0.8 % (0.1-2.0); Eosinophils # 0.2 K/mm3 (0.0-0.4); Eosinophils % 1.4 % (0.1-12.0); Hematocrit 48.1 % (37.0-47.0); Lymphocytes # 3.4 K/mm3 (0.7-4.5); Lymphocytes % 26.9 % (10-50); Mean Corpuscular HGB Conc 33.3 g/dL (31.8-35.4); Mean Corpuscular Hemoglobin 31.1 pg (27.0-31.2); Mean Corpuscular Volume 93.5 fl (81-99); Mean Platelet Volume 8.1 fl (7.4-10.4); Monocytes # 0.8 K/mm3 (0.1-1.0); Monocytes % 6.3 % (1.7-9.3); Neutrophils % 64.5 % (37.0-80.0); Platelet Count 439 K/mm3 (142-424); Red Blood Count 5.15 M/mm3 (4.20-5.40); Red Cell Distribution Width 13.4 % (11.5-17.5); White Blood Count 12.4 K/mm3 (4.8-10.8)
[2023-04-28 14:25] LABS: Alanine Aminotransferase 18 U/L (12-78); Albumin Level 3.9 g/dl (3.5-5.0); Albumin/Globulin Ratio 1.1 (1.1-1.8); Alkaline Phosphatase 59 U/L (38-126); Anion Gap 11.5 mEq/L (5-15); Aspartate Amino Transferase 24 U/L (14-36); Bilirubin,Total 0.4 mg/dl (0.2-1.3); Blood Urea Nitrogen 12 mg/dl (7-17); Calcium 9.9 mg/dl (8.4-10.2); Carbon Dioxide 26 mmol/L (22.0-30.0); Chloride 105 mmol/L (98-107); Estimated Glomerular Filt Rate 109 ml/min (>60); GFR (African American) 132 ML/MIN (>60); Globulin 3.4 g/dL (1.3-3.2); Glucose 104 mg/dl (74-100); Potassium 4.5 mmoL/L (3.5-5.1); Sodium 138 mmol/L (136-145); Total Protein,Serum 7.3 g/dl (6.3-8.2)
[2023-04-28 14:30] LABS: C-Reactive Protein 29.7 mg/L (0-4)
[2023-04-28 14:33] LABS: Iron 56 ug/dL (37-170)
[2023-04-28 14:42] LABS: 25-OH Vitamin D, Total 26.7 ng/mL (30-100)
[2023-04-28 14:43] LABS: Total Iron Binding Capacity 310 ug/dL (265-497)
[2023-04-28 15:04] LABS: Erythrocyte Sedimentation Rate 5 mm/hr (0-20)
[2023-04-28 15:10] LABS: Ferritin 29.3 ng/ml (6.24-137)
[2023-04-28 15:16] LABS: Vitamin B12 619 pg/mL (239-931)
== END 2023-04-28 23:59 ==
LOC: LAB 13:27
PROVIDERS: Internal Medicine Gastroenterology; PCP Family Medicine; Visit Provider Nurse Practitioner Family
DX: K50.10 Crohn's disease of large intestine without complications (principal); E55.9 Vitamin D deficiency, unspecified
CPT/HCPCS: 36415; 80053; 82306; 82607; 82728; 83540; 83550; 85025; 85651; 86140

== ENCOUNTER 2023-05-09 08:41 | Day surgery (SDC) | payer BC, SELFPAY ==
[2023-05-05 10:06] VITALS: BMI 35.5
--- NOTE | 2023-05-06 10:30 | SUR.PREOP ---
TC to JAIRON in Diaz's office to report abnorm WBC 12.4.
[2023-05-09] VITALS (10 sets, daily range): BP systolic 123–149; BP diastolic 71–108; PULSE 65–78; RESP 16–18; TEMP 35.9–36.4; O2SAT 92–97
[2023-05-09] MEDS: LACTATED RINGERS 1000ML 1,000 ML 25 ML IV (09:01)
--- NOTE | 2023-05-09 09:28 | EXP.ANES.CKL ---
[facility] Disclaimer: The information contained in this section may have been updated after the patient was seen, as this information can be updated by other users. Medical History Abnormal EKG Asthma Crohn disease Daytime somnolence Deep vein thrombosis (DVT) Dyspnea Group G streptococcal infection HTN (hypertension) Tobacco dependence syndrome Surgical History History of section History of colonoscopy History of hysterectomy Family History Other Cancer Hypertension Social History Smoking Status: Former smoker tobacco type: cigarettes packs per day: 1 second hand exposure: Yes alcohol intake: current substance use type: denies use current occupational status: employed Travel in the last 8 weeks: None household members: spouse housing: house current occupational exposures/hazards: No caffeine: No [facility] Anesthesia Checklist Patient Identification Patient Identification: Arm Band and Verbal (Name & ) Structural Data Admitted From: Home Planned Operative Procedure/s: Lap cholecystectomy Consent for Planned Operative Procedure(s) Verified: Yes NPO Status Verified Time NPO: 00:00 Chart Verification Results Verified: CBC and BMP Additional verifications Anesthesia Reactions: No Hx Blood Transfusions: No Blood Transfusion Reaction: No Airway Assessment Mallampati Score:: Class II C-Spine Mobility Assessed: Yes TMJ Mobility Assessed: Yes Dentition: Good Dentition Neurological Assessment Level of Consciousness: Awake Hx Seizures: No Numbness or tingling in extremities: No Anesthesia Plan Anesthesia Risk discussed: Yes Anesthesia Plan: Verified ASA Class: II Anesthesia Type: General
[2023-05-09] MEDS: ROPIVACAINE 0.5% 30ML VIAL 150 MG (10:43)
[2023-05-09] MEDS: LIDOCAINE 1% 20ML MDV 20 ML (10:43)
[2023-05-09] MEDS: CLINDAMYCIN PHOSPHATE/D5W 900 MG/50 ML PIGGYBACK 100 MG IV (10:43)
[2023-05-09] MEDS: SODIUM CHLORIDE IRRIG SOLUTION 3,000 ML 3000 ML IR (10:45)
--- NOTE | 2023-05-09 11:24 | P.OP_ITS ---
Date of procedure: 05/09/23 Pre-op Diagnosis:: Gallbladder disease Post-op Diagnosis:: Same Procedure performed:: Laparoscopic cholecystectomy Surgeon:: Gabriel Perales MD Anesthesia: GETA Estimated blood loss (mL): 20 Clinical Note:: Patient presents for cholecystectomy. She is a very pleasant 43-year-old female referred by Brooke Womack MD for gallbladder and initially seen in the office on 03/23/2023. She has a rather longstanding history of Crohn's disease for which she is actively being treated. She sees Dr. Duke Westbrook. She had been on Humira for years. She states that she is on Stelara. She also has seen Dr. Oksana Katz. She has a relatively longstanding history of right lateral thoracoabdominal pain. She states that she thought she may have a bruised liver . She describes some nausea. Associated with the right lateral thoracoabdominal pain is some pressure and she describes it as a rock . Her symptoms are not necessarily related to eating. She underwent gallbladder ultrasound which revealed sludge. She has previously had hysterectomy and C- section. 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 Given the equivocal workup for gallbladder and due to the fact that her symptoms were somewhat more lateral than typical as well as due to the fact that she has a history of inflammatory bowel disease I had her undergo CT scan of the abdomen and pelvis as well as HIDA scan. CT scan of the abdomen pelvis reveals findings worrisome for perianal fistulas. HIDA scan revealed an ejection fraction of 75%. Patient had exact significant reproduction of symptoms with CCK infusion. I had a long discussion with the patient. I informed her that her workup is somewhat equivocal for definitive gallbladder disease. We discussed potentially following up with gastroenterology and even colorectal surgery. Patient did have an appointment with her physicians specimen preparation assistant with Dr. Westbrook for gastroenterology and it was felt that her symptoms were more likely her gallbladder and not Crohn's. She strongly wishes to pursue cholecystectomy as she feels this is the etiology of her symptoms. Given the fact that she had exact significant reproduction of symptoms with CCK she may very well have some degree of gallbladder disease and potentially biliary hyperkinesia. She wishes to pursue surgery. I explained to her the nature and details of the proposed procedure along with associated risks and expected outcome. I also explained to her that there is a possibility that cholecystectomy may not alleviate her symptoms. She understands and is anxious to proceed with laparoscopic possibly open cholecystectomy. Operative findings:: She had some fatty infiltration of the liver. Gallbladder was distended. There was some debris and biliary sludge within the gallbladder Operative note:: Consent was obtained patient was taken to the operating room. She was given preoperative intravenous antibiotics. In the operating room she is placed in a supine position. General anesthesia was induced via endotracheal tube. Abdomen was prepped and draped in the standard surgical fashion. Subumbilical skin incision was made. While performing abdominal wall lift Veress needle was inserted. CO2 pneumoperitoneum was achieved to 15 mmHg. 11 mm optical trocar was inserted at the umbilicus. Intraperitoneal contents were visualized. She was positioned in reverse Trendelenburg and left side down. A couple 5 mm trocars were inserted in the right upper abdomen. 10 mm trocar was inserted in the epigastrium. Gallbladder was grasped retracted anteriorly and superiorly over the dome of the liver. Infundibulum of the gallbladder was retracted anterior laterally. Blunt dissection was carried out the neck of the gallbladde r bluntly incising the visceral peritoneum. Ultimately the cystic duct and cystic artery were clearly identified in the critical view of safety. Cystic duct was isolated, multiply clipped, and sharply divided. Cystic artery was carefully coagulated with GONZALO ultrasonic harmonic bambi and divided. Gallbladder was dissected free from the liver in a retrograde fashion using GONZALO ultrasonic harmonic bambi. During the dissection process there was some unavoidable spillage of bile from the cystic duct remnant. This was read clipped. Suctioning was performed which revealed at least 1 tiny gall stone/debris. Gallbladder was then placed within an Endo Catch retrieval device and removed from the peritoneal cavity via the umbilical trocar site. Gallbladder fossa and perihepatic space was then irrigated and aspirated until clear. Trocars were removed as CO2 pneumoperitoneum was evacuated. Fascia at the umbilicus was closed with 0 Vicryl suture. Local anesthetic was infiltrated. Skin incisions were closed with 4-0 Monocryl in subcuticular fashion. Dermabond and dressings were applied. Condition: stable Disposition: PACU Complications:: None immediately apparent
--- NOTE | 2023-05-09 11:33 | P.PNANES_ITS ---
[facility] Anesthesia Record Part I Anesthesia Record I Intake, IV Amount: 500 Hydration: Adequate Estimated blood loss (mL): 25 Urine output (mL): 0 Blood Products used (#): none Blood Pressure: 149/108 SaO2: 92 Pulse Rate: 78 Airway Patency: Patent Respiratory Rate: 16 Temperature: 96.7 F Patient is:: Awake and Stable Stable to PACU at:: 11:34
[2023-05-09] MEDS: HYDROMORPHONE 2MG/ML SYRINGE 0.299999999999999989 MG IV (11:41)
[2023-05-09] MEDS: MORPHINE 2MG/ML SYRINGE 2 MG IV ×2 (11:50→12:05)
[2023-05-09 11:56] LABS: POC Glucose,Bedside 90 (70-110)
--- NOTE | 2023-05-10 13:48 | P.PNANES_ITS ---
[facility] Anesthesia Record Part II Anesthesia Record Part II Discharge Time: 12:09 Destination: Surgical Day Care (OP Surgery) PACU nurse assessment reviewed?: Yes Patient Condition:: Good Anesthesia Complications:: None Swallowing reflex intact?: Yes Airway Patency: Patent Cyanosis?: No Blood Pressure: 137/89 SaO2: 96 Respiratory Rate: 18 Pulse Rate: 67 Temperature: 97.1 F Mental Status: Alert & Oriented Pain level:: 4 Nausea and/or vomitting:: None Intake, IV Amount: 0 Hydration: Adequate
[2023-05-10 13:49] VITALS: BP 137/89; PULSE 67; RESP 18; TEMP 36.2; O2SAT 96
== END 2023-05-09 12:45 | disposition home or self-care (01) ==
PROVIDERS: PCP Family Medicine; Visit Provider Surgery
PROC: 0FT44ZZ Resection of Gallbladder, Percutaneous Endoscopic Approach (ICD-10-PCS; CPT 47562; principal; 2023-05-09 10:15)
DX: K81.1 Chronic cholecystitis (principal); K76.0 Fatty (change of) liver, not elsewhere classified; Z79.899 Other long term (current) drug therapy
CPT/HCPCS: 47562; 82962; 96374; J3490; J2405

== ENCOUNTER 2023-07-21 09:17 | Outpatient (CLI) | payer BC, SELFPAY ==
[2023-07-28 15:19] LABS: Calprotectin, Fecal 80 ug/g (0-120)
== END 2023-07-21 23:59 | disposition home or self-care (01) ==
LOC: LAB 09:17
PROVIDERS: PCP Family Medicine; Visit Provider Nurse Practitioner Family
DX: K50.90 Crohn's disease, unspecified, without complications (principal)
CPT/HCPCS: 36415; 83993

== ENCOUNTER 2023-08-25 10:20 | Outpatient (CLI) | payer BC, SELFPAY ==
--- NOTE | 2023-08-25 10:26 | XR_ITS ---
FINAL REPORT CLINICAL HISTORY: left knee pain x 2 months COMPARISON: 03/11/2022 FINDINGS: LEFT KNEE Three views demonstrate no acute fracture or dislocation. The joint spaces appear normal. There is no joint effusion. No acute soft tissue abnormality is seen. IMPRESSION: No acute process. Reviewed, Interpreted and Dictated by Carmelo Serrano MD Transcribed by Leticia Grayson Authenticated and [facility]
== END 2023-08-25 23:59 | disposition home or self-care (01) ==
LOC: RAD 10:21
PROVIDERS: PCP Family Medicine; Visit Provider Orthopaedic Surgery
DX: M25.562 Pain in left knee (principal)
CPT/HCPCS: 73562

== ENCOUNTER 2024-01-04 08:47 | Outpatient (CLI) | payer BC, SELFPAY ==
--- NOTE | 2024-01-04 08:58 | XR_ITS ---
FINAL REPORT CLINICAL HISTORY: right knee pain COMPARISON: 03/11/2022 FINDINGS: RIGHT KNEE: Three views of the right knee reveal no evidence of fracture or dislocation. The bony alignment is normal. The joint spaces are preserved. There is no evidence of joint effusion. No localized soft tissue abnormality is identified. IMPRESSION: No acute abnormality identified. Reviewed, Interpreted and Dictated by Gabriel Luciano III, MD Transcribed by Kajal Ivey Authenticated and [facility]
== END 2024-01-04 23:59 | disposition home or self-care (01) ==
LOC: RAD 08:48
PROVIDERS: PCP Family Medicine; Visit Provider Physician Assistant
DX: M25.561 Pain in right knee (principal)
CPT/HCPCS: 73562

== ENCOUNTER 2024-01-11 10:06 | Emergency (ER) | payer BC, SELFPAY ==
[2024-01-11 10:34] VITALS: BP 141/93; PULSE 75; RESP 18; TEMP 36.7; O2SAT 96; BMI 35.5
--- NOTE | 2024-01-11 10:38 | EXP.UTC ---
Discharge Plan Disposition Patient Disposition: Home, Self-Care Condition: Good Prescriptions Prescriptions: New azithromycin [Zithromax Z-Al] 250 mg tablet See Rx Instructions .ROUTE .COMPLEX 5 Days Qty: 6 0RF Rx Instructions: For 250 mg dose pack: take 500 mg today (day 1), then 250 mg for 4 days (days 2-5) methylprednisolone [Medrol (Al)] 4 mg tablets,dose pack See Rx Instructions .Route .COMPLEX 6 Days Qty: 21 0RF Rx Instructions: taper pack; No Action mercaptopurine 50 MG tablet 50 mg PO DAILY hydrocodone-acetaminophen 5-325 mg Tablet 1 - 2 tab PO Q6H PRN (Reason: Pain) Qty: 21 0RF hydrochlorothiazide 25 MG tablet 25 mg PO DAILY buspirone 5 mg tablet 5 mg PO DAILY metformin 500 mg tablet 500 mg PO DAILY doxycycline hyclate 100 mg capsule 100 mg PO BID spironolactone 100 mg tablet 100 mg PO DAILY propranolol 60 mg capsule,extended release 24 hr 60 mg PO DAILY sertraline 100 mg tablet 100 mg PO DAILY lamotrigine 25 mg tablet 25 mg PO DAILY omeprazole 20 mg capsule,delayed release(DR/EC) 20 mg PO DAILY Referrals Follow up/Referrals: Josseline Cox MD [Primary Care Provider] - See instructions Activity Restrictions/Add. Instructions Additional Instructions/Restrictions: *Monitor Temp, Over the counter Motrin or Tylenol as directed/as needed Tylenol every 4 hours and Motrin every 6 hours (as long as your family doctor has told you that you can take it) for fever or pain. and straight to ER if unable to lower temp less than 101.0 after medication given *Warm salt water gargles may help to soothe the throat *Throat Lozenges? *Warm fluids like tea with honey may help to soothe the throat? *Sleep elevated *Humidifier/Vaporizer Take medication as prescribed Follow up IMMEDIATELY for new or worsening symptoms or no Noticeable improvement over the next 48-72 hours. 911 for difficulty breathing or swallowing Clinical Impressions Clinical Impression: Sinusitis Instructions Patient Instructions: DI for Sinusitis, Sinusitis Print Language Print Language: Telugu Discharge ED Provider[place]ude[place] [facility] [facility] [place] General Stated complaint: sinus congestion Mode of Arrival: Ambulatory Source of Information: Patient Time Seen by Provider: 01/11/24 10:38 Description of Symptoms (Recalled from Triage Doc. by RN): SINUS INFECTION S/S, HEADACHE, SINUS PRESSURES, FEVERS HEENT Symptoms (Recalled from RN notes): Yes Resp Symptoms (Recalled from RN notes): Yes Skin Symptoms (Recalled from RN notes): No MS Symptoms (Recalled from RN notes): No Functional Status (Recalled from RN notes): WNL History of Present Illness Provider Complaint: Patient states that she feels like she has a sinus infection States for the last week she has been having sinus pain and pressure and pressure behind her eyes, drainage in the back of her throat that is making her throat feel scratchy Related Data Home Medications ?Medication ?Instructions ?Recorded ?Confirmed mercaptopurine 50 mg tablet 50 mg PO DAILY CROHNS 02/18/19 01/04/24 hydrochlorothiazide 25 mg tablet 25 mg PO DAILY Fluid 07/22/20 01/04/24 buspirone 5 mg tablet 5 mg PO DAILY 02/09/23 01/11/24 doxycycline hyclate 100 mg capsule 100 mg PO BID 02/09/23 01/04/24 lamotrigine 25 mg tablet 25 mg PO DAILY 02/09/23 01/11/24 metformin 500 mg tablet 500 mg PO DAILY 02/09/23 01/11/24 omeprazole 20 mg capsule,delayed 20 mg PO DAILY 02/09/23 01/04/24 release propranolol 60 mg capsule,24 60 mg PO DAILY 02/09/23 01/04/24 hr,extended release sertraline 100 mg tablet 100 mg PO DAILY 02/09/23 01/11/24 spironolactone 100 mg tablet 100 mg PO DAILY 02/09/23 01/11/24 Previous Rx's ?Medication ?Instructions ?Recorded hydrocodone 5 mg-acetaminophen 325 1 - 2 tab PO Q6H PRN Pain #21 tabs 05/09/23 mg tablet azithromycin 250 mg tablet See Rx Instructions PO .COMPLEX 5 01/11/24 (Zithromax Z-Al) days #6 tabs methylprednisolone 4 mg tablets in See Rx Instructions .Route 01/11/24 a dose pack (Medrol (Al)) .COMPLEX 6 days #21 tabs Allergies Allergy/AdvReac Type Severity Reaction Status Date / Time amoxicillin [From Augmentin] Allergy Intermediate hives Verified 01/04/24 09:30 clavulanic acid Allergy Intermediate hives Verified 01/04/24 09:30 [From Augmentin] shrimp Allergy Intermediate Verified 01/04/24 09:30 Sulfa (Sulfonamide Allergy Verified 01/04/24 09:30 Antibiotics) Worker's Comp Is this a Worker's Comp case?: No [facility] Disclaimer: The information contained in this section may have been updated after the patient was seen, as this information can be updated by other users. Medical History Asthma Deep vein thrombosis (DVT) Group G streptococcal infection Daytime somnolence Dyspnea Crohn disease Tobacco dependence syndrome HTN (hypertension) Abnormal EKG Surgical History History of laparoscopic cholecystectomy History of hysterectomy History of section History of colonoscopy Family History Other Cancer Hypertension Social History Smoking Status: Former smoker tobacco type: cigarettes packs per day: 1 second hand exposure: Yes alcohol intake: current alcohol intake frequency: holidays/special occasions only substance use type: denies use current occupational status: employed Travel in the last 8 weeks: None household members: spouse housing: house current occupational exposures/hazards: No caffeine: No ROS Obtained: Yes All systems reviewed & no additional complaints except as documented and Yes Systems reviewed as appropriate & no additional complaints except as documented Constitutional Constitutional: Reports system reviewed and no additional complaints, except as documented, Reports as per HPI and Reports headache(s) ENT Ears, Nose, Mouth, and Throat: Reports system reviewed and no additional complaints, except as documented, Reports as per HPI, Reports headache(s), Reports sinus pain and Reports sinus pressure Cardiovascular Cardiovascular: Reports system reviewed and no additional complaints, except as documented and Reports as per HPI Respiratory Respiratory: Reports system reviewed and no additional complaints, except as documented and Reports as per HPI Gastrointestinal Gastrointestingal: Reports system reviewed and no additional complaints, except as documented and as per HPI Neurologic Neurologic: Reports headache(s) Physical Exam General General appearance: alert and in no apparent distress ENT ENT exam: Present mucous membranes moist Expanded ENT Exam Nose exam: Present sinus tenderness Throat exam: Present other (PND noted) Respiratory Respiratory exam: Present normal lung sounds bilaterally; Absent respiratory distress or wheezes Cardiovascular Cardiovascular exam: Present regular rate, normal rhythm and normal heart sounds Neurological Exam Neurological exam: Present alert, oriented X3 and normal gait Medical Decision Making Medical Records Screening: Per USPSTF and CDC recommendations, given the prevalence of disease in our region, it is our hospital?s policy to screen for HIV and viral Hepatitis for all patients aged 18 and over and those with ongoing risk factors. Wilder Inquiry Pt receiving controlled substance: No Wilder was queried for this patient: No Vital Signs: 01/11/24 10:34 Temperature 98.0 F Temperature Source Oral Pulse Rate [Left Brachial] 75 Respiratory Rate 18 Blood Pressure [Left Arm] 141/93 H Blood Pressure Mean [Left Arm] 109 02 Sat by Pulse Oximetry 96
[2024-01-11 10:55] VITALS: BP 141/93; PULSE 75; RESP 18; TEMP 36.7
== END 2024-01-11 10:56 | disposition home or self-care (01) ==
PROVIDERS: Emergency Provider Nurse Practitioner; PCP Family Medicine
DX: J32.9 Chronic sinusitis, unspecified (principal); R51.9 Headache, unspecified; R09.81 Nasal congestion; R50.9 Fever, unspecified
CPT/HCPCS: 99212; G0381

== ENCOUNTER 2024-02-03 12:03 | Emergency (ER) | payer BC, SELFPAY ==
[2024-02-03 12:30] VITALS: BP 133/92; PULSE 85; RESP 19; TEMP 36.6; O2SAT 97; BMI 35.0
--- NOTE | 2024-02-03 13:13 | EXP.UTC ---
Discharge Plan Disposition Patient Disposition: Home, Self-Care Condition: Good Prescriptions Prescriptions: New clindamycin phosphate 1 % gel, once daily 1 applic topical DAILY Qty: 75 0RF Rx Instructions: apply to area under arm as directed No Action metformin 500 mg tablet 500 mg PO DAILY doxycycline hyclate 100 mg capsule 100 mg PO DAILY sertraline 100 mg tablet 100 mg PO DAILY metronidazole 500 mg tablet 500 mg PO DAILY lamotrigine 25 mg tablet 25 mg PO DAILY mercaptopurine 50 mg tablet 50 mg PO DAILY Patient Comments: TAKE 1 TABLET BY MOUTH DAILY DIRECTED hydrochlorothiazide 25 mg tablet 25 mg PO DAILY Referrals Follow up/Referrals: Josseline Cox MD [Primary Care Provider] - See instructions Activity Restrictions/Add. Instructions Additional Instructions/Restrictions: Apply gel to area as directed Follow up with Dermatology as advised No shaving Over the counter Motrin and/or Tylenol for pain Warm compresses to area may help Clinical Impressions Clinical Impression: Hidradenitis suppurativa Instructions Patient Instructions: Hidradenitis Suppurativa Print Language Print Language: Swedish Discharge ED Provider: Shelby Bermudez [facility] [place] HPI General Stated complaint: possible cyst under right arm Mode of Arrival: Ambulatory Source of Information: Patient Limitations: No Limitations Time Seen by Provider: 02/03/24 13:13 Description of Symptoms (Recalled from Triage Doc. by RN): PATIENT C/O CYST TO RIGHT AXILLA AREA THAT IS RED AND INFLAMMED HEENT Symptoms (Recalled from RN notes): No Resp Symptoms (Recalled from RN notes): No Skin Symptoms (Recalled from RN notes): Yes MS Symptoms (Recalled from RN notes): No Functional Status (Recalled from RN notes): WNL History of Present Illness Provider Complaint: Patient states that she has hidradenitis suppurativa and it has flared up States that she has been on oral flagyl but it isnt helping it much wasnt sure if there was something else she could do or take so she came in Related Data Home Medications ?Medication ?Instructions ?Recorded ?Confirmed doxycycline hyclate 100 mg capsule 100 mg PO DAILY 02/03/24 02/03/24 hydrochlorothiazide 25 mg tablet 25 mg PO DAILY 02/03/24 02/03/24 lamotrigine 25 mg tablet 25 mg PO DAILY 02/03/24 02/03/24 mercaptopurine 50 mg tablet 50 mg PO DAILY 02/03/24 02/03/24 metformin 500 mg tablet 500 mg PO DAILY 02/03/24 02/03/24 metronidazole 500 mg tablet 500 mg PO DAILY 02/03/24 02/03/24 sertraline 100 mg tablet 100 mg PO DAILY 02/03/24 02/03/24 Previous Rx's ?Medication ?Instructions ?Recorded clindamycin phosphate 1 % topical 1 applic topical DAILY #75 mL 02/03/24 gel, once daily Allergies Allergy/AdvReac Type Severity Reaction Status Date / Time amoxicillin [From Augmentin] Allergy Intermediate hives Verified 01/04/24 09:30 clavulanic acid Allergy Intermediate hives Verified 01/04/24 09:30 [From Augmentin] shrimp Allergy Intermediate Verified 01/04/24 09:30 Sulfa (Sulfonamide Allergy Verified 01/04/24 09:30 Antibiotics) Worker's Comp Is this a Worker's Comp case?: No [facility] Disclaimer: The information contained in this section may have been updated after the patient was seen, as this information can be updated by other users. Medical History Asthma Deep vein thrombosis (DVT) Group G streptococcal infection Daytime somnolence Dyspnea Crohn disease Tobacco dependence syndrome HTN (hypertension) Abnormal EKG Surgical History History of laparoscopic cholecystectomy History of hysterectomy History of section History of colonoscopy Family History Other Cancer Hypertension Social History Smoking Status: Former smoker tobacco type: cigarettes packs per day: 1 second hand exposure: Yes alcohol intake: current alcohol intake frequency: holidays/special occasions only substance use type: denies use current occupational status: employed Travel in the last 8 weeks: None household members: spouse housing: house current occupational exposures/hazards: No caffeine: No ROS Obtained: Yes All systems reviewed & no additional complaints except as documented and Yes Systems reviewed as appropriate & no additional complaints except as documented Constitutional Constitutional: Reports system reviewed and no additional complaints, except as documented and Reports as per HPI ENT Ears, Nose, Mouth, and Throat: Reports system reviewed and no additional complaints, except as documented and Reports as per HPI Cardiovascular Cardiovascular: Reports system reviewed and no additional complaints, except as documented and Reports as per HPI Respiratory Respiratory: Reports system reviewed and no additional complaints, except as documented and Reports as per HPI Gastrointestinal Gastrointestingal: Reports system reviewed and no additional complaints, except as documented and as per HPI Integumentary/Breasts Skin/Breast: Reports system reviewed and no additional complaints, except as documented, Reports as per HPI and Reports other Comments: hx of hidradentitis suppurativa having a flare up Physical Exam General General appearance: alert and in no apparent distress Eye Eye exam: Present normal appearance, PERRL and EOMI ENT ENT exam: Present normal exam, normal oropharynx and mucous membranes dry Respiratory Respiratory exam: Present normal lung sounds bilaterally; Absent respiratory distress or wheezes Cardiovascular Cardiovascular exam: Present regular rate, normal rhythm and normal heart sounds Abdominal Exam Abdominal exam: Present soft and normal bowel sounds; Absent distention or tenderness Neurological Exam Neurological exam: Present alert, oriented X3 and normal gait Skin Skin exam: Present other (red hard area noted under right arm pit area, no drainage has hx of hidradentis suppurativa ) Medical Decision Making Medical Records Screening: Per USPSTF and CDC recommendations, given the prevalence of disease in our region, it is our hospital?s policy to screen for HIV and viral Hepatitis for all patients aged 18 and over and those with ongoing risk factors. Wilder Inquiry Pt receiving controlled substance: No Wilder was queried for this patient: No Vital Signs: 02/03/24 12:30 Temperature 97.9 F Temperature Source Oral Pulse Rate [Left Brachial] 85 Respiratory Rate 19 Blood Pressure [Left Arm] 133/92 H Blood Pressure Mean [Left Arm] 105 Blood Pressure Source [Left Arm] Automatic Cuff Blood Pressure Position [Left Arm] Sitting 02 Sat by Pulse Oximetry 97 Oxygen Delivery Method Room Air
[2024-02-03 13:29] VITALS: BP 133/92; PULSE 85; RESP 19; TEMP 36.6; O2SAT 97
== END 2024-02-03 13:32 | disposition home or self-care (01) ==
PROVIDERS: Emergency Provider Nurse Practitioner; PCP Family Medicine
DX: L73.2 Hidradenitis suppurativa (principal); R22.9 Localized swelling, mass and lump, unspecified
CPT/HCPCS: 99212; G0381

== ENCOUNTER 2024-02-04 10:07 | Emergency (ER) | payer BC, SELFPAY ==
[2024-02-04 10:12] VITALS: BP 142/82; PULSE 82; O2SAT 97
[2024-02-04 10:17] VITALS: BP 142/82; PULSE 79; RESP 16; TEMP 36.6; O2SAT 99; BMI 34.3
[2024-02-04] MEDS: LIDOCAINE/PRILOCAINE 5GM TUBE 5 GM TP (10:25)
[2024-02-04] MEDS: OXYCODONE 5MG IMMEDIATE RELEASE TABLET 5 MG PO (10:25)
--- NOTE | 2024-02-04 10:27 | ED_ITS ---
Discharge Plan Disposition Patient Disposition: Home, Self-Care Condition: Good Prescriptions Prescriptions: No Action metformin 500 mg tablet 500 mg PO DAILY doxycycline hyclate 100 mg capsule 100 mg PO DAILY sertraline 100 mg tablet 100 mg PO DAILY metronidazole 500 mg tablet 500 mg PO DAILY lamotrigine 25 mg tablet 25 mg PO DAILY mercaptopurine 50 mg tablet 50 mg PO DAILY Patient Comments: TAKE 1 TABLET BY MOUTH DAILY DIRECTED hydrochlorothiazide 25 mg tablet 25 mg PO DAILY clindamycin phosphate 1 % gel, once daily 1 applic topical DAILY Qty: 75 0RF Rx Instructions: apply to area under arm as directed Referrals Follow up/Referrals: Josseline Cox MD [Primary Care Provider] - See instructions Activity Restrictions/Add. Instructions Additional Instructions/Restrictions: Floss vessel loop as instructed in the emergency department twice a day and wash with warm soapy water. Cut vessel loop after 2 days. Return to the emergency department for fevers nausea vomiting severe fatigue this could be a sign of systemic illness. Continue to take your doxycycline as prescribed. Keep wound warm and dry. Clinical Impressions Clinical Impression: Abscess Instructions Patient Instructions: DI for Skin Abscess Print Language Print Language: Macanese Discharge ED Provider: Sierra Thrasher General Adult HPI General Chief complaint: Skin/Abscess/Foreign Body Stated complaint: cyst in right armpit/HS Time Seen by Provider: 02/04/24 10:09 Mode of Arrival: Ambulatory Source of Information: Patient Limitations: No Limitations Description of Symptoms (Recalled from ER Triage Doc. by RN): Pt. presents to the ED with complaints of a right axillary abscess x4 days. She has a history of hidradenitis supperativa and takes flaygl and doxycycline prophylactically. She rates the pain 9/10 currently. History of Present Illness HPI narrative: Patient is a 44-year-old with past medical history significant for hidradenitis suppurativa Crohn's disease presents to the emergency department with right axilla abscess. Patient takes doxycycline 100 mg twice daily prophylactically for her at bedtime and was also recently prescribed Flagyl. Abscess has been present for 4 days and progressively worsening painful 9 out of 10 without any drainage no fevers nausea or vomiting. Does note that she has intermittent chills but feels like this is her baseline. Patient has been given a referral for dermatology however has not been able to get into see an appointment at this time Related Data Home Medications ?Medication ?Instructions ?Recorded ?Confirmed doxycycline hyclate 100 mg capsule 100 mg PO DAILY 02/03/24 02/04/24 hydrochlorothiazide 25 mg tablet 25 mg PO DAILY 02/03/24 02/04/24 lamotrigine 25 mg tablet 25 mg PO DAILY 02/03/24 02/04/24 mercaptopurine 50 mg tablet 50 mg PO DAILY 02/03/24 02/04/24 metformin 500 mg tablet 500 mg PO DAILY 02/03/24 02/04/24 metronidazole 500 mg tablet 500 mg PO DAILY 02/03/24 02/04/24 sertraline 100 mg tablet 100 mg PO DAILY 02/03/24 02/04/24 Previous Rx's ?Medication ?Instructions ?Recorded clindamycin phosphate 1 % topical 1 applic topical DAILY #75 mL 02/03/24 gel, once daily Allergies Allergy/AdvReac Type Severity Reaction Status Date / Time clavulanic acid Allergy Intermediate hives Verified 02/04/24 10:24 [From Augmentin] shrimp Allergy Intermediate Hives Verified 02/04/24 10:24 Sulfa (Sulfonamide Allergy Hives Verified 02/04/24 10:24 Antibiotics) [facility] Disclaimer: The information contained in this section may have been updated after the patient was seen, as this information can be updated by other users. Medical History Asthma Deep vein thrombosis (DVT) Group G streptococcal infection Daytime somnolence Dyspnea Crohn disease Tobacco dependence syndrome HTN (hypertension) Abnormal EKG Surgical History History of laparoscopic cholecystectomy History of hysterectomy History of section History of colonoscopy Family History Other Cancer Hypertension Social History Smoking Status: Never smoker second hand exposure: Yes alcohol intake: current alcohol intake frequency: holidays/special occasions only substance use type: denies use current occupational status: employed Travel in the last 8 weeks: None household members: spouse housing: house current occupational exposures/hazards: No caffeine: No Other Medical History Have you received the Flu Vaccine for this season: No Have you received the Pneumonia Vaccine: No ROS Obtained: Yes All systems reviewed & no additional complaints except as documented Physical Exam General General appearance: alert and in no apparent distress Comment: Uncomfortable appearing Head Head exam: atraumatic and normal inspection Eye Eye exam: Present normal appearance, PERRL and EOMI ENT ENT exam: Present normal exam and normal oropharynx Neck Neck exam: Present normal inspection and full ROM Respiratory Respiratory exam: Absent respiratory distress or accessory muscle use Cardiovascular Cardiovascular exam: Present regular rate and normal rhythm Abdominal Exam Abdominal exam: Present soft; Absent distention or tenderness Extremities Exam Extremities exam: Present tenderness (Right axilla with associated fluctuant abscess approximately 3 cm) Back Exam Back exam: Present normal inspection; Absent tenderness Neurological Exam Neurological exam: Present alert and oriented X3 Skin Skin exam: Present warm and dry Lymphatic Lymphatic Findings: no adenopathy Medical Decision Making Medical Records Screening: Per USPSTF and CDC recommendations, given the prevalence of disease in our region, it is our hospital?s policy to screen for HIV and viral Hepatitis for all patients aged 18 and over and those with ongoing risk factors. Wilder Inquiry Pt receiving controlled substance: No Vital Signs: 02/04/24 10:12 02/04/24 10:17 02/04/24 10:31 Temperature 97.9 F Temperature Source Oral Pulse Rate 82 76 Pulse Rate [Left Brachial] 79 Respiratory Rate 16 Blood Pressure 142/82 H 130/88 Blood Pressure [Left Arm] 142/82 H Blood Pressure Mean [Left Arm] 102 Blood Pressure Source [Left Arm] Automatic Cuff Blood Pressure Position [Left Arm] Sitting 02 Sat by Pulse Oximetry 97 99 97 Oxygen Delivery Method Room Air Room Air 02/04/24 10:52 02/04/24 11:00 02/04/24 11:49 Temperature 98.7 F Temperature Source Pulse Rate 80 90 Pulse Rate [Left Brachial] Respiratory Rate 20 Blood Pressure 135/84 129/86 143/78 H Blood Pressure [Left Arm] Blood Pressure Mean [Left Arm] Blood Pressure Source [Left Arm] Blood Pressure Position [Left Arm] 02 Sat by Pulse Oximetry 94 L 98 Oxygen Delivery Method Orders (Tests/Meds): ED MEDICATIONS Discontinued Medications Generic Name Dose Route Start Last Admin Trade Name Freq PRN Reason Stop Dose Admin Diazepam 2.5 mg 02/04/24 10:26 02/04/24 10:34 Diazepam 5mg Tablet PO 02/04/24 10:27 2.5 mg ONCE ONE Administration Lidocaine/Epinephrine 10 ml 02/04/24 10:27 02/04/24 10:37 Lidocaine 1% W/Epi 1:100,000 20ml Vial SQ 02/04/24 10:28 10 ml ONCE ONE Administration Lidocaine/Prilocaine 5 gm 02/04/24 10:16 02/04/24 10:25 Lidocaine/Prilocaine 5gm Tube TP 02/04/24 10:17 5 gm ONCE ONE Administration Oxycodone HCl 5 mg 02/04/24 10:16 02/04/24 10:25 Oxycodone 5mg Immediate Release Tablet PO 02/04/24 10:17 5 mg ONCE ONE Administration ORDERS Category Date Time Status POCUS Point of Care (ER Only) Stat Exams 02/04/24 10:15 Completed Medical Decision Narrative: In summary, this 44-year-old female presents to the emergency department today with right axillary pain. On initial evaluation patient is hemodynamically stable saturating appropriately on room air afebrile no acute distress. Differential diagnosis includes but is not limited to cellulitis abscess lymphadenitis. Wedoz-et-[id number] ultrasound concerning for 3 x 3 cm abscess. As patient does not have any systemic symptoms no further workup indicated at this time. Abscess drained per procedure note. Once abscess drained source control is achieved. Patient is already on doxycycline. Recommended continuing taking doxycycline as prescribed and follow-up with her c s s representative. Patient received Emla, oxycodone and diazepam for pain control. On reassessment after incision and drainage patient has improvement of symptoms amendable to discharge at this time. Of note, social determinants of health include inability to see c s s representative in timely manner. Procedures Abscess I/D Site: upper extremity Side (if applicable): right Sedation/analgesia: midazolam Local Anesthetic: lidocaine 1% Amount of anesthesia used (mL): 5 Technique: incised with #11 blade Amount of fluid expressed (mL): 100 Irrigation: Yes Packing used?: none (vessel loop) Limited Ultrasound Indication:: abscess Findings:: Indication: Soft tissue redness Location: Right axilla Findings: 3 x 3 cm abscess No color-flow within abscess Impression: Abscess Images were saved to the permanent archive. The study was technically adequate. Soft tissue CPT codes Neck: 42274-70 Upper extremity: 90620-01 Axilla: 87193-84 Chest wall: 76376-46 Breast: 54748-23 (complete), 68154-64-[RT/LT] (limited) Upper back: 68816-89 Abdominal wall: 65265-37 Pelvic wall: 02734-01 Lower extremity: 44619-48 Other soft tissue: 15593-33 This study was performed by me, and I personally interpreted all images/videos. Based on my clinical judgment, these images were [adequate/inadequate] and [did/did not] necessitate further imaging. Critical Care Critical Care Time Critical Care Time: No
[2024-02-04 10:31] VITALS: BP 130/88; PULSE 76; O2SAT 97
[2024-02-04] MEDS: diazePAM 5MG TABLET 2.5 MG PO (10:34)
[2024-02-04] MEDS: LIDOCAINE 1% W/EPI 1:100,000 20ML VIAL 10 ML SQ (10:37)
[2024-02-04 10:52] VITALS: BP 135/84; O2SAT 94
[2024-02-04 11:00] VITALS: BP 129/86; PULSE 80; O2SAT 98
[2024-02-04 11:49] VITALS: BP 143/78; PULSE 90; RESP 20; TEMP 37.1; O2SAT 98
== END 2024-02-04 11:51 | disposition home or self-care (01) ==
PROVIDERS: Emergency Provider Student in an Organized Health Care Education/Training Program; PCP Family Medicine
DX: L02.411 Cutaneous abscess of right axilla (principal)
CPT/HCPCS: 10060; 99283

== ENCOUNTER 2024-02-10 11:00 | Outpatient (RCR) | payer BC, SELFPAY ==
--- NOTE | 2024-01-12 11:26 | HMH.PTOPEV ---
PT Outpatient Evaluation Rehab PT Outpatient Evaluation Start: 01/12/24 10:31 Freq: Status: Active Protocol: Document 01/12/24 10:31 ELIZABETH (Rec: 01/12/24 11:26 ELIZABETH [id number]) E-signed By Eitan Vincent, PT Outpatient Therapy Subjective History Subjective History Pt reports insidious onset left sided LBP beginning ~2 months ago. Pt reports pain has progressed w/radicular s/s down LEft LE into posterior thigh mm area and reports some N&T as well as pain in LLE. Pt reports h/o chronic LBP for ~15 yrs, and reports B/L knee OA,' which my contribute to this low back stuff because of the way it makes me walk.' PMH: Crohn's dx New diagnosis of cancer in past 12 No months? Chief Complaint Pain,Stiff,Catches/Locks, Paresthesia Symptom Type Ache,Sharp,Dull,Numbness, Tingling Symptoms Relieved By Rest/Positioning,Heat Symptoms Aggravated By Bending/Stooping,Physical Activity,Twisting,Lifting Prior Functional Limitations Housework Current Functional Limitations Lifting,Housework,Standing, Walking,Bending/Stooping Symptom Description Constant but Variable Level of pain today (0-10) 5 Pain scale - at its best (0-10) 5 Pain scale - at its worst (0-10) 8 Lumbopelvic Eval Posture Thoracic Spine Posture Standing Position Flattened Lumbar Spine Posture Standing Position Flattened Assistive device Assistive Devices None / NA Gait Observation General Gait Pattern Observation Antalgic Gait Palapation tenderness bilateral lumbar spinal tenderness Yes: 3/4 paraspinal tenderness Yes: 3/4 buttock tenderness Yes: 1-2/4 (left) Lumbar/Sacral Palpation Findings Tenderness Accessory Movement L3 bilateral L4 bilateral L5 bilateral Range of Motion Lumbar Spine Active Flexion Range of 0-80 Motion (degrees) Lumbar Spine Active Extension Range of 0-25 Motion (degrees) Left Lumbar Spine Lateral Flexion Active 0-15 Range of Motion (degrees) Right Lumbar Spine Lateral Flexion 0-25 Active Range of Motion (degrees) Lumbar Spine ROM Limitations Soft Tissue Tightness,Pain Manual Muscle Test Bilateral Knee Extension Strength Grade 5 Normal Knee Flexion Strength Grade 5 Normal Hip Flexion Strength Grade 4- Good- Hip Abduction Strength Grade 4- Good- Extensor Hallucis Longus Strength Grade 5 Normal Ankle Dorsiflexion Strength Grade 5 Normal Gastronemius/Soleus Strength Grade 5 Normal Special Tests Hip Piriformis Test Negative Left,Negative Right Sciatic Nerve Tension Test Negative Left,Negative Right Reverse Sciatic Nerve Tension Test Negative Left,Negative Right Lumbar Long [place] Distraction Test/Manual Negative Traction Oswestry Index Section 1 Pain Intensity The pain comes and goes and is moderate Section 2 Personal Care (Washing,Dresing) my way of washing or dressing even though it causes some pain Section 3 Lifting I can lift heavy weights, but it gives me extra pain Section 4 Walking I have some pain when walking but it does not increase with distance Section 5 Sitting Pain prevents me from sitting for more than one hour Section 6 Standing I cannot stand more than 1 hour without increasing pain Section 7 Sleeping I get pain in bed, but it does not prevent me from sleeping well Section 8 Social Life My social life is normal but increases the degree of pain Section 9 Traveling I get extra pain while traveling, but it does not compel me to seek al Section 10 Changing Degreee of Pain My pain is neither getting better or worse Score and Risk Level Oswestry Sc 16 Oswestry Risk Level Moderate Disability Outpatient Therapy Assessment Impairments Problems/Impairmments Palpation Tenderness,Impaired Range of Motion,Impaired Strength,Impaired Gait Pattern ,Impaired Walking,Impaired Standing,Impaired Household Care,Impaired Bending, Subjective C/O Pain,Impaired Self Care/Self Management Prognosis Rehab Potential Good Short Term Goals Number of Weeks 4 Decreased Palpation Tenderness Yes: 1-2/4 lumbar mm Increase Range of Motion Yes: 50-75% of WFL LUMBAR AROM Increase Strength Yes: 4/5 B/L HIP MM AND CORE MM Increase Ability to Walk Yes: 15MIN Increase Ability to Stand Yes: 15MIN Decrease Subjective C/O Pain Yes: 4/10 W/ABOVE ACTIVITIES Patient to be Ind w/ HEP Yes Mcfp Goals Number of Weeks 6-10 Decreased Palpation Tenderness Yes: 0-1/4 LUMBAR MM Increase Range of Motion Yes: WFL LUMBAR AROM Increase Strength Yes: 4+-5/5 CORE MM, AND B/L HIP MM Improve Gait Pattern without Assistive Yes: WFL Device Increase Ability to Walk Yes: 60MIN Increase Ability to Stand Yes: 60MIN Restore Ability to Lift Objects to Waist Yes: 15-20# FOR HOUSEHOLD Level ACTIVITY Improve Ability For Household Care Yes: 60MIN WFL Improve Oswestry Score Yes: 5-8 Decrease Subjective C/O Pain Yes: 0-2/10 W/ABOVE ACTIVITIES Patient to be Ind w/ Advanced HEP Yes Outpatient Therapy Plan of Care Treatment Plan May Include Therapeutic Exercise Including Home Yes Exercise Program Manual Therapy Techniques Yes Neuromuscular Re-education Yes Therapeutic Activities to Return to Yes Previous Functional/Work Level ADL/Self Care Education Yes Mechanical Traction Yes Dry Needling Yes Thermal Modalities Yes Electrical Stimulation Yes Ultrasound/Phonophoresis Yes Eval/Re-Eval Yes Frequency Times per week 2-3 Duration Number of Weeks 6-10 Addendums This patient is a candidate for social No or vocational rehab? Patient/Guardian verbally acknowledges Yes understanding of treatment program and consents to further treatment? Patient/Guardian verbally acknowledges Yes understanding of diagnosis, prognosis and goals for treatment? Eval Complexity PT Charges 42440 - Moderate Complexity Shoulder/Elbow Eval Shoulder Objective Measurements Elbow Objective Measurements PHYSICIAN CERTIFICATION: I certify the specified therapy services for Anita Hidalgo are required, authorized, and reviewed every 30 days.
--- NOTE | 2024-02-10 11:39 | HMH.RHREAS ---
Rehab Reassessment Rehab OP Re-assessment Start: 01/12/24 10:31 Freq: Status: Active Protocol: Document 02/10/24 11:06 KASHMIRMCKENNA (Rec: 02/10/24 11:38 ELIZABETH [id number]) E-signed By Eitan Vincent, PT Oswestry Index Section 1 Pain Intensity The pain is moderate and does not vary much Section 2 Personal Care (Washing,Dresing) my way of washing or dressing even though it causes some pain Section 3 Lifting I can lift heavy weights, but it gives me extra pain Section 4 Walking I cannot walk more than one mile wihtout increasing pain Section 5 Sitting Pain prevents me from sitting for more than one hour Section 6 Standing I have some pain on standing, but it does not increase with time Section 7 Sleeping Because of my pain, my normal night's sleep is less than 6 hours sleep Section 8 Social Life My social life is normal but increases the degree of pain Section 9 Traveling I get extra pain while traveling, but it does not compel me to seek al Section 10 Changing Degreee of Pain My pain is neither getting better or worse Score and Risk Level Oswestry Sc 18 Oswestry Risk Level Moderate Disability Rehab Re-assessment Subjective Subjective Pt reports increased LBP over the last 'day and a half', reporting 6-7/10 on VAS this am 'more on the left side.' Pt reports overall since I eval some temporary improvement in LBP, and reports 'pelvic MRI is now scheduled for 02/21/24. ' Objective Objective Notes AROM: LUMBAR SPINE FLX 0-55, EXT 0-10, R SB 0-20, L SB 0-15 MMT: B/L HIP FLX 4-4+/5, B/L KNEE EXT 5/5, B/L KNEE FLX 5/5 , B/L HIP ABD 4/5, B/L HIP ADD 4+-5/5 TTP: LUMBAR PARASPINALS 3/4 BILATERALLY, PIVM L1-5 LIMITED D/T PAIN GAIT: ANTALGIC THIS AM ON LEVEL TERRAIN oswestry: 18 vs 16 on I eval Assessment Progress Assessment Slower Than Expected Assessment Notes Pt experiencing some amount of regression this am for reassessment objective measures (AROM, TTP, oswestry) , and limited intermittent LBP relief since I eval, however, pt does exhibit increased LE strength since I eval Patient goals met STG'S 07/02 Goals Not Met STG'S 06/01, LTG'S 02/05 Plan Plan Pt to continue w/skilled P.T. to make further improvements in ROM, strength, TTP, and gait to allow for optimal function Frequency of Therapy 2-3x/wk Duration of therapy 4-6wks Time and Billing Re-Eval Time 12 Re-Eval Billing Units 0 Charge for PT reassessment? No PHYSICIAN CERTIFICATION: I certify the specified therapy services for Anita Hidalgo are required, authorized, and reviewed every 30 days.
== END 2024-02-10 23:59 | disposition home or self-care (01) ==
LOC: PT 11:00
PROVIDERS: Visit Provider Physician Assistant
DX: M54.41 Lumbago with sciatica, right side (principal)
CPT/HCPCS: 97014; 97035; 97110; 97163; 97530; G0283

== ENCOUNTER 2024-04-27 16:01 | Outpatient (CLI) | payer BC, SELFPAY ==
[2024-04-27 17:01] LABS: Basophils # 0.1 K/mm3 (0-0.2); Basophils % 0.8 % (0.1-2.0); Eosinophils # 0.2 K/mm3 (0.0-0.4); Eosinophils % 1.3 % (0.1-12.0); Hematocrit 49.2 % (37.0-47.0); Hemoglobin 16.5 g/dL (12.2-16.2); Lymphocytes # 3.5 K/mm3 (0.7-4.5); Lymphocytes % 25.8 % (10-50); Mean Corpuscular HGB Conc 33.5 g/dL (31.8-35.4); Mean Corpuscular Hemoglobin 29.7 pg (27.0-31.2); Mean Corpuscular Volume 88.5 fl (81-99); Mean Platelet Volume 9.8 fl (7.4-10.4); Monocytes # 1.5 K/mm3 (0.1-1.0); Monocytes % 10.9 % (1.7-9.3); Neutrophils # 8.3 K/mm3 (1.8-7.8); Neutrophils % 60.7 % (37.0-80.0); Platelet Count 432 K/mm3 (142-424); Red Blood Count 5.56 M/mm3 (4.20-5.40); Red Cell Distribution Width 13.6 % (11.5-17.5); White Blood Count 13.7 K/mm3 (4.8-10.8)
[2024-04-27 17:53] LABS: Alanine Aminotransferase 21 U/L (12-78); Albumin Level 4.5 g/dl (3.5-5.0); Albumin/Globulin Ratio 1.5 (1.1-1.8); Alkaline Phosphatase 73 U/L (38-126); Anion Gap 16.2 mEq/L (5-15); Aspartate Amino Transferase 25 U/L (14-36); Bilirubin,Total 0.4 mg/dl (0.2-1.3); Blood Urea Nitrogen 11 mg/dl (7-17); Calcium 10.1 mg/dl (8.4-10.2); Carbon Dioxide 20 mmol/L (22.0-30.0); Chloride 104 mmol/L (98-107); Estimated Glomerular Filt Rate 109 ml/min (>60); GFR (African American) 131 ML/MIN (>60); Glucose 106 mg/dl (74-100); Potassium 4.2 mmoL/L (3.5-5.1); Sodium 136 mmol/L (136-145); Total Protein,Serum 7.5 g/dl (6.3-8.2)
[2024-04-27 17:58] LABS: C-Reactive Protein 14.8 mg/L (0-4)
[2024-05-08 14:09] LABS: Adalimumab Drug Level 5.3 ug/mL (.); Anti-Adalimumab Antibody 29 ng/mL (.)
== END 2024-04-27 23:59 | disposition home or self-care (01) ==
LOC: LAB 16:06
PROVIDERS: PCP Family Medicine; Visit Provider Internal Medicine Gastroenterology
DX: K50.913 Crohn's disease, unspecified, with fistula (principal); K60.30 Anal fistula, unspecified; L73.2 Hidradenitis suppurativa
CPT/HCPCS: 36415; 80053; 80145; 81256; 82397; 85025; 86140

== ENCOUNTER 2024-06-13 14:01 | Outpatient (CLI) | payer BC, SELFPAY ==
[2024-06-13 14:36] LABS: Basophils # 0.1 K/mm3 (0-0.2); Basophils % 0.6 % (0.1-2.0); Eosinophils # 0.2 K/mm3 (0.0-0.4); Eosinophils % 1.8 % (0.1-12.0); Hematocrit 46.4 % (37.0-47.0); Hemoglobin 15.3 g/dL (12.2-16.2); Lymphocytes # 4.1 K/mm3 (0.7-4.5); Lymphocytes % 32.9 % (10-50); Monocytes # 0.3 K/mm3 (0.1-1.0); Monocytes % 2.1 % (1.7-9.3); Neutrophils # 7.7 K/mm3 (1.8-7.8); Platelet Count 439 K/mm3 (142-424); Red Cell Distribution Width 13.3 % (11.5-17.5); White Blood Count 12.5 K/mm3 (4.8-10.8)
[2024-06-13 14:58] LABS: Albumin Level 4.5 g/dl (3.5-5.0); Chloride 104 mmol/L (98-107); Sodium 136 mmol/L (136-145)
[2024-06-13 14:59] LABS: Potassium 4.1 mmoL/L (3.5-5.1)
[2024-06-13 15:01] LABS: Alanine Aminotransferase 32 U/L (12-78); Anion Gap 13.1 mEq/L (5-15); Aspartate Amino Transferase 25 U/L (14-36); Bilirubin,Total 0.4 mg/dl (0.2-1.3); Blood Urea Nitrogen 13 mg/dl (7-17); Carbon Dioxide 23 mmol/L (22.0-30.0); Estimated Glomerular Filt Rate 109 ml/min (>60); GFR (African American) 131 ML/MIN (>60)
[2024-06-13 15:02] LABS: Albumin/Globulin Ratio 1.5 (1.1-1.8); Alkaline Phosphatase 75 U/L (38-126); Calcium 9.9 mg/dl (8.4-10.2); Globulin 3.1 g/dL (1.3-3.2); Glucose 131 mg/dl (74-100); Total Protein,Serum 7.6 g/dl (6.3-8.2)
[2024-06-21 05:08] LABS: Adalimumab Drug Level 2.6 ug/mL (.); Anti-Adalimumab Antibody 102 ng/mL (.)
== END 2024-06-13 23:59 | disposition home or self-care (01) ==
LOC: LAB 14:04
PROVIDERS: PCP Family Medicine; Visit Provider Internal Medicine Gastroenterology
DX: K50.913 Crohn's disease, unspecified, with fistula (principal); K60.30 Anal fistula, unspecified
CPT/HCPCS: 36415; 80053; 80145; 82397; 85025

== ENCOUNTER 2024-06-14 14:15 | Outpatient (CLI) | payer BC, SELFPAY ==
[2024-06-17 00:08] LABS: Calprotectin, Fecal 92 ug/g (0-120)
== END 2024-06-14 23:59 | disposition home or self-care (01) ==
LOC: LAB 14:15
PROVIDERS: PCP Family Medicine; Visit Provider Internal Medicine Gastroenterology
DX: K50.913 Crohn's disease, unspecified, with fistula (principal)
CPT/HCPCS: 83993

== ENCOUNTER 2024-07-24 14:06 | Outpatient (CLI) | payer BC, SELFPAY ==
--- NOTE | 2024-07-24 14:08 | XR_ITS ---
FINAL REPORT CLINICAL HISTORY: Right wrist pain COMPARISON: 05/10/2022 FINDINGS: RIGHT WRIST Three views demonstrate no acute fracture or dislocation. The visualized joint spaces are normally aligned. The soft tissues are unremarkable. IMPRESSION: No acute bony abnormality. Reviewed, Interpreted and Dictated by Carmelo Serrano MD Transcribed by Kriss Guevara Authenticated and [facility]
--- OUTSIDE RECORDS SUMMARY | 2024-07-24 14:08 | XMS_ITS | Data Portability ---
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 Buenrostro to send in prescriptions of spirolactone and Metformin when patient needs refills [email or web address] Not available 02/27/2024 12:17:09 04/30/2024 04/30/[address] Buenrostro to send in prescriptions of spirolactone and Metformin when patient needs refills [email or web address] Not available 04/30/2024 14:38:03 Plan of Treatment Reminders Order Date Submit Date Provider Last Modified By Organization Details Last Modified Time Details Appointments PROCEDURE 2024 11:30A M CRIS BUENROSTRO MD Not available Not available Not available Lab None recorded. Referral None recorded. Procedures None recorded. Surgeries None recorded. Imaging None recorded. Medication Orders None recorded. Patient TargetsNo targets recorded. Patient Instructions Encounter Date Encounter Id Patient Instructions Last Modified By Organization Details Last Modified Time 02/27/2024 [id number] -Please call us for appointment with any changing or worrisome lesions or skin conditions. [email or web address] Not available 02/27/2024 12:20:02 04/30/2024 [id number] -Please call us for appointment with any changing or worrisome lesions or skin conditions. [email or web address] Not available 03/30/2024 13:43:26 Reason for Referral None Reported. 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 Procedures Surgical History Date Name Laterality Status Provider Name and Address Organization Details Recorded Time 04/30/19 25 Destruction BN Lesions completed Roxana Tripp [facility] 04/30/2024 14:39:55 02/27/20 24 Injection, Intralesional completed CRIS BUENROSTRO MD [address] [place] [address], [phone], [facility] 02/27/2024 12:16:28 Imaging Results None recorded. Procedure Notes None recorded. Medical Equipment None Reported. Allergies Allergen ID Allergen Name Allergen Category Reaction Reaction Severity Criticality Documentation Date Start Date Code Code System Note Provider Name and Address Organization Details Recorded Time 652746 Product containin g penicilli n (product) medicatio n Not available Not available Not available 02/20/20162008 09375 8001 SNOMED Comme nt: Creat ed By: Franko gifford; Brenda ed Date: 009 11:16 :43 AM; Not Available [facility] 6 03:46:43 618609 Substance with sulfonami de structure and antibacte rial mechanism of action (substanc e) medicatio n Not available Not available Not available 02/20/20162008 36330 8003 SNOMED Comme nt: Creat ed By: Franko valenzuela Creat ed Date: 009 11:17 :10 AM; Not Available [facility] 6 04:32:35 615055 Augmentin medicatio n Not available Not available Not available 04/30/2024 35650 2 RxNorm Roxana Tripp [facility] 5 14:20:17 Medications Name Sig Start Date Stop Date Status Note LastModified by Organization Details LastModified Time Doc-Q-Lace 100 mg capsule Two times a day active Frequency: bid;Medica tion Descriptio n: docusate; Route:oral ; refills:0; Quantity:2 capsule Not Available Not Available Not Available lysine 1,000 mg tablet active Medication Descriptio n: lysine; Route:oral ; refills:0 Not Available Not Available Not Available Alinia 500 mg tablet Two times a day 2015 active Duration: 30 days;Instr uctions: called in to [facility] [phone];F requency: bid;Medica tion Descriptio n: nitazoxani de; Dosage:1; Route:oral ; refills:0; Quantity:6 0 tablet Not Available Not Available Not Available Cipro active Not Available Not Availa ble Not Available labetalol active Medication Descriptio n: labetalol; refills:0 Not Available Not Available Not Available Vitamin D3 As needed active Frequency: prn;Medica tion Descriptio n: cholecalci ferol; Dosage:2; Route:oral ; refills:0; Quantity:o tc Not Available Not Available Not Available Vitamin Daily active Frequency: daily;Medi cation Descriptio n: multivitam in, ; Dosage:1; Route:oral ; refills:0 Not Available Not Available Not Available Humira Pen 40 mg/0.8 mL subcutaneou s kit Every week 2014 active Instructio ns: Inject 80mg subcutaneo usly *ONCE per week as directed;F requency: Every week;Medic ation Descriptio n: adalimumab ; Dosage:2; Route:subc utaneous; refills:6; Quantity:8 kit Not Available Not Available Not Available Vitals None Recorded Social History None recorded. Functional Status None recorded. Mental Status None recorded. Family History Nothing Reported. Medical History Condition Response Squamous Cell Carcinoma N Acne Y Skin Problems Y Other Skin Condition Y Varicose Veins Y Autoimmune disease Y Eczema N Melanoma N Basal Cell Carcinoma N Skin Cancer N Gynecological HistoryNo gynecological history recorded. Obstetrics History GPAL:G 0 P 0 0 0 0 Past Encounters Encounter ID Performer Location Encounter Start Date Encounter Closed Date Diagnosis/Indication Diagnosis SNOMED-CT Code Diagnosis ICD10 Code Diagnosis Note [id number] MD AMY THOMAS [address] [address] [place] [address] 02/27/2024 08:46:13 02/27/2024 11:22:48 Hidradenitis suppurativa 75136947 L73.2 Hidradenit is Suppurativ aChronic, flaring- Patient originally diagnosed with HS in 2015. Patient also has Crohn's disease and has used Humira to control both. Patient was on Humira 80mg/week for Crohn's (which is also a great treatment for HS). the switch to Stelara (insurance mandated) resulted in poorly controlled HS. The other biologic approved for HS is Cosentyx, however, this is not recommende d in patients with inflammato ry bowel disease. Patient is currently on Spirolacto ne and Metformin for additional management of HS but has had emergency room visits due to flare-ups. - Reviewed at length the nature of the condition, that it is chronic and can be controlled through consistent treatment but cannot be cured.- Reviewed that treatment consists of both maintenanc e medication s to be done daily, and medication s for flares.- Weight control and smoking cessation reviewed- patient is seeing smoking cessation at and encouraged patient to speak to PCP on weight control, patient is interested in [facility]. . [id number] CRIS BUENROSTRO MD [facility] [address] [address] [place] [address] 04/30/2024 14:11:08 04/30/2024 14:47:36 Hidradenitis suppurativa 79472574 L73.2 Hidradenit is Suppurativ aChronic, minimal flaring- Patient originally diagnosed with HS in 2015. Patient also has Crohn's disease and has used Humira to control both. Patient was on Humira 80mg/week for Crohn's (which is also a great treatment for HS). the switch to Stelara (insurance mandated) resulted in poorly controlled HS. The other biologic approved for HS is Cosentyx, however, this is not recommende d in patients with inflammato ry bowel disease. Patient is currently on Spirolacto ne and Metformin for additional management of HS but has had emergency room visits due to flare-ups. - Reviewed at length the nature of the condition, that it is chronic and can be controlled through consistent treatment but cannot be cured.- Reviewed that treatment consists of both maintenanc e medication s to be done daily, and medication s for flares.- Weight control and smoking cessation reviewed- patient is seeing smoking cessation at and encouraged patient to speak to PCP on weight control, patient was approved for Zepbound. She already lost 30 lbs Discussed using Clindamyci n topical for the small flares in betweenPat ient is currently on Cipro from GI between Humira biosimilar sPatient has done well with tac 10 il inj in the past - not needed today follow up Epidermoid cyst [id number] 6 L72.0 Benign Reassuranc eDiscussed excision if lesion is bothersome patient has had it removed before but it returned 30 min exc and discussed she will have sutures for two weeks and no heavy lifting Inflamed s eborrheic keratosis 339516919 L82.0 Education then treated with LN; right cheek x 1 pt tolerated well advised pt what to expect with freezingTr eated with LN per patients request Tenderness of skin 74707 9000 R20.8 ISK, lesion is bothersome to patient Health Concerns Section Related Observation LastModified by Organization Detai ls LastModified Time None Recorded Concern Status LastModified by Organization Details LastModified Time None Recorded Advance Directives Directive None Recorded Payers Encounter Date Sequence Insurance Name Policy Number Policy Perry Covered Member ID Perry Member ID Guarantor Name 02/27/2024 1 [place] [id number] Mary Demi Hidalgo [id number] Anita A Hidalgo 04/30/2024 1 [place] [id number] Mary Hidalgo [id number] Anita A Hidalgo Notes Date Note Type Note Provider Name and Address Organization Details Recorded Time 02/27/2024 text/html New patient- Referred by: Dr. John Ge 44 yo F presents for evaluation of HS. Patient states she has had HS since under her arms and left buttocks/groin. She also has a h/o Crohn's disease for which she is on Stelara (switched from Humira 80 mg/week 9-10 years ago due to insurance change). Patient since has had multiple flare-ups since then. Prior to that, her HS had been fairly well controlled. She went to ER 2-3 weeks ago due to flare-up. Because of her flares, she was started on 2 years ago spironolactone and metformin (unsure of the doses but she will call to let us know). Other treatments include Retin-A and clindamycin lotion Denies any other new or changing lesions. Feels well today. Denies family history of malignant melanoma. CRIS BUENROSTRO MD [facility] [place], [address], [facility] 02/27/2024 12:20:37 04/30/2024 text/html New patient- Referred by: Dr. John Ge 44 yo F presents for follow up on HS. She also has a h/o Crohn's disease for which she is on Simlandi but is more then likely changing to another biosimilar of Humira. She feels that her HS is stable. Patient is on Cipro for her Crohn's and has been approved Zepbound (she already lost 30 lbs) She is currently taking Simlandi, Spirolactone, and Metformin to manage her HS and Crohn's. Denies any other new or changing lesions. Feels well today. Denies family history of malignant melanoma. CRIS BUENROSTRO MD [facility] [place], [address], [facility] 04/30/2024 15:36:52 OBGyn Episode No OBEpisode recorded.
== END 2024-07-24 23:59 | disposition home or self-care (01) ==
LOC: RAD 14:07
PROVIDERS: PCP Family Medicine; Visit Provider Orthopaedic Surgery
DX: M25.531 Pain in right wrist (principal)
CPT/HCPCS: 73110

== ENCOUNTER 2025-02-07 09:10 | Outpatient (CLI) | payer BC, SELFPAY ==
--- OUTSIDE RECORDS SUMMARY | 2024-12-24 04:29 | XMS_ITS | Encounter Summary ---
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 Name Role Phone Josseline Cox Primary Care Provider [phone] Reason for Visit * Auth/Cert (Routine) Specialty Diagnoses / Procedures Referred By Sy de leon Referred To Contact Diagnoses Hidradenitis suppurativa of anus Perianal fistula due to Crohn's disease (CMS/HCC) Hidradenitis suppurativa of anus [L73.2] Perianal fistula due to Crohn's disease (CMS/HCC) [K50.913, K60.30] Procedures [place] I&D RECTAL ABSCESS + FISTULECTOMY INCISION AND DRAINAGE, ABSCESS, ISCHIORECTAL OR INTRAMURAL, WITH FISTULECTOMY OR FISTULOTOMY; excision of hidraditis suppurativa Ashlee Stephens MD [address] [address] Phone: tel: fax: [facility] Operating Room [address] [place] [address] Phone: tel: Referral ID Status Reason Start Date Expiration Date Visits Re quested Visits Authorized [id number] 1 1 Encounter Details Date Type Department Care Team (Latest Contact Info) Description 12/24/2024 5:29 AM EDT - 12/24/2024 9:40 AM EDT Hospital Encounter [facility] S Operating Room [address] [place] [address] Ashlee Stephens MD [address] [phone] Hidradenitis suppurativa of anus; Perianal fistula due to Crohn's disease ([facility]/HCC) Discharge Disposition: Home or Self Care Social History Tobacco Use Types Packs/Day Years Used Date Smoking Tobacco: Former Cigarettes 1 26 0 03/28/1997 - 03/28/2023 Passive Smoke Exposure: Never Smokeless Tobacco: Never Comments:Light cigarette smo ker (1-9 cigarettes per day) Alcohol Use Standard Drinks/Week Comments Yes 0 (1 standard drink = 0.6 oz pur e alcohol) 1-2 times a month PHQ-2 Answer Date Recorded Patient Health Questionnaire-2 Score 0 10/23/2024 PHQ-9 Answer Date Recorded Patient Health Questionnaire-9 Score 0 10/23/2024 Comments No Sex and Gender Information Value Date Recorded Sex Assigned at Not on file Legal Sex Female 6:18 PM EDT Gender Identity Not on file Sexual Orientation Not on file documented as of this encounter Last Filed Vital Signs Vital Sign Reading Time Taken Comments Blood Pressure 135/83 12/24/2024 9:00 AM EDT Pulse 74 12/24/2024 9:00 AM EDT Temperature 36.4 C (97.5 F) 12/24/2024 8:40 AM EDT Respiratory Rate 12 12/24/2024 9:00 AM EDT Oxygen Saturation 93% 12/24/2024 9:00 AM EDT Inhaled Oxygen Concentration - - Weight 99.2 kg (218 lb 11.1 oz) 12/24/2024 6:20 AM EDT Height 167.6 cm (5' 6 ) 12/24/2024 6:20 AM EDT Body Mass Index 35.3 12/24/2024 6:20 AM EDT documented in this encounter Functional Status * Calculated C-SSRS Risk Score (Lifetime/Recent) Answer Date of Assessment Author No Risk Indicated 12/24/2024 6:00 AM EDT Do steph oBland RN * Question Answer Date of Assessment Author 1. Wish to be (Past 1 Month) No 6:00 AM EDT Yojana Boland RN 2. Non-Specific Active Suici jasmine Thoughts (Past 1 Month) No 12/24/2024 6:00 AM Yojana Mendez, RN 6. Suicidal Behavior (Lifetime) No 6:00 AM Yojana Mendez, RN documented as of this encounter Discharge Instructions * Discharge Instructions* Waqar Calderon MD - 12/24/2024 6:07 AM EDT Images from the original note were not included. Department of Surgery Division of Colorectal Surgery Activity: Move around as you are able, do not lift over 5 lbs for 6 weeks after surgery Diet: You may eat a regular diet Be sure to stay hydrated and take in plenty of fluid. Medications: Take tylenol 1000mg every 6 hours for pain, if you still have pain, take oxycodone, one tab every 6-8 hours as needed, take Valium, one tab every 8 hours as needed. You have been prescribed the antibiotics leofloxacin, take this for 7 days after surgery until you run out of the medication. Continue your home medications unless instructed otherwise at discharge. Wound care: It is okay to shower. Allow warm, soapy water to run over your incisions and pat dry with a clean towel. Do not submerge your incisions in a tub bath or body of water for two weeks after your operation. It is normal to have discharge. Wear a pad as needed. Take tylenol and ibuprofen as directed on thebottle. Can alternate every 3 hours. You may take valium for muscle spasms. Do not take with other benzodiazepines. If you continue to have pain, take oxycodone. Sitz bathes may help with pain reliefas well. Take over the counter fiber/stool softners. Follow up: You will follow up with Dr. Stephens in 3 weeks. The clinic will call with an appointment time. Questions: Call the [facility] at [phone] during business hours on weekdays or call [facility]'s after hours at [phone] to speak with a resident front end driver for Colorectal surgery after 5pm or on weekends if: - you have a fever > 101F - you are vomiting and cannot keep down liquids - your pain cannot be controlled with oral medications - if you start to have increased redness, drainage of pus, swelling, or increased pain around your incision documented in this encounter Medications at Time of Discharge Adalimumab-ryvk (Simlandi, 2 Pen,) 40 MG/0.4ML Auto-injector KitIndications: CC (Crohn's colitis), with fistula (CMS/HCC) INJECT THE CONTENTS OF TWO PENS (80MG) SUBCUTANEOUSLY ONCE WEEKLY Directed. Refrigerate, do not freeze, allow to come to room temp before 8 each 5 09/04/2024 B Complex-C (SUPER B COMPLEX PO) Take 1 tablet by mouth daily. bisacodyl (Dulcolax) 5 MG EC tablet Take all 4 tablets at 4 PM on day before colonoscopy . Do not crush, chew, or split. 4 tablet 08/05/2024 busPIRone (Buspar) 5 MG tablet TAKE 1 TABLET BY MOUTH TWICE DAILY MAY CAUSE DROWSINESS 60 tablet 2 11/29/2024 cholecalciferol (Vitamin D-3) 1.25 MG (55850 UT) capsule Take 1 capsule by mouth 1 time per week. On Saturdays cholecalciferol (Vitamin D-3) 5,000 Units tablet Take 1 tablet (5,000 Units) by mouth 1 (one) time per week. cholecalciferol (Vitamin D-3) 50 MCG (2000 UT) capsule as needed. dicyclomine (Bentyl) 10 MG capsule TAKE 1 CAPSULE BY MOUTH FOUR TIMES DAILY IF NEEDED (CRAMPING). 60 capsule 2 11/29/2024 doxycycline (Vibramycin) 100 MG capsule Take 1 capsule by mouth daily. 02/01/2024 hydroCHLOROthia zide (HYDRODiuril) 25 MG tablet Take 1 tablet by mouth 1 time each day. 12/05/2023 lamoTRIgine (LaMICtal) 25 MG tablet Take 2 tablets by mouth 1 time each day. 02/09/2023 Lysine 1000 MG tablet daily. mercaptopurine (Purixan) 50 MG tablet Take 1 tablet (50 mg total) by mouth daily. 90 tablet 3 10/19/2024 6 metFORMIN (Glucophage) 500 MG tablet Take 1 tablet by mouth daily with breakfast. 02/09/2023 methocarbamol (Robaxin) 750 MG tablet as needed. 08/25/2024 multivitamin (Theragran-M) tablet Take 1 tablet by mouth 1 time each day. naloxone (Narcan) 4 mg/0.1 mL nasal spray 1. Give 1 spray in nostril for no/slow breathing or cannot wake after opioid use 2. Call 911 3. Repeat in other nostril if symptoms continue 1 each 12/24/2024 omeprazole (PriLOSEC) [address] capsule Take 1 capsule by mouth 1 time each day. A needed 02/09/2023 sertraline (Zoloft) 100 MG tablet Take 1.5 tablets by mouth 1 time each day. 02/09/2023 spironolactone (Aldactone) 100 MG tablet Take 1 tablet by mouth daily. 02/09/2023 tretinoin (Retin-A) 0.025 % cream Apply topically as needed. 08/16/2023 allopurinol (Zyloprim) 100 MG tablet Take 1 tablet by mouth daily. 90 tablet 11/01/2024 levoFLOXacin (Levaquin) 500 MG tabletIndicatio ns:Perianal fistula due to Crohn's disease (CMS/HCC) Take 1 tablet by mouth daily for 7 days. 7 tablet 12/24/2024 5 clindamycin (Cleocin T) 1 % lotion Apply topically as needed. 12/14/2022 5 diazePAM (Valium) 5 MG tablet Take 1 tablet by mouth every 8 hours as needed for anxiety or muscle spasms for up to 15 doses. 15 tablet 12/24/2024 5 oxyCODONE (Roxicodone) 5 MG immediate release tablet Take 1 tablet by mouth every 6 hours as needed for moderate pain for up to 15 doses. 15 tablet 12/24/2024 5 documented as of this encounter Miscellaneous Notes * Anesthesia PACU Signout - Roxana Miller MD - 12/24/2024 9:08 AM EDT Patient: Anita Hidalgo Anesthesia Type: general Vitals Value Taken Time BP 135/83 12/24/24 09:00 Temp 36.4 ??C (97.5 ??F) 12/24/24 08:40 Pulse 75 12/24/24 09:06 Resp 15 12/24/24 09:06 SpO2 94% 12/24/24 09:06 Vitals shown include unfiled device data. Anesthesia PACU Signout Patient location during evaluation: PACU Patient participation: complete - patient participated Level of consciousness: baseline and awake Pain management: adequate (pain score 0-3) Airway patency: natural airway Hydration status: acceptable PONV: none Cardiovascular status: acceptable and hemodynamically stable Respiratory status: acceptable, spontaneous ventilation, unassisted and nonlabored ventilation Discharge Disposition: home Cosigned by Ellis Gregory MD at 12/24/2024 9:51 AM EDT Associated attestation - Ellis Gregory MD - 12/24/2024 9:51 AM EDT Signature only. * Mayo Carrillo - [place] RN - 12/24/2024 9:00 AM EDT Images from the original note were not included. 113 Post-Anesthesia and Postoperative Instructions ([place]) In order to have a fast and comfortable recovery at home, please follow these instructions. ? A responsible adult must be present for you to be discharged. ? Do not drive, drink alcohol or make important decisions for 24 hours after surgery. ? You may feel like resting more than normal after surgery. Start slowly and be more active each day. ? Start slowly with liquids like 7-up, tea, apple juice or broth. Eat more as your stomach allows. If you feel sick to your stomach, go back to drinking liquids. ? You may feel some discomfort after surgery. Take the medicine as directed by your caregiver. If your medicine makes you drowsy, do not drink alcohol, drive or operate heavy equipment for at least 24 hours after use. ? If you are taking antibiotics, take them until they are all gone even if you feel well. ? Cover your wound or bandage when showering, unless your doctor tells you differently. ? A small amount of drainage on your bandage is normal. Do not remove your bandage unless your doctor tells you to. Please keep track of information about the medicines you take. Follow these tips to manage your medicines. ? Keep a list of all your medicines. Update the list when you start or stop taking a medicine. Write down changes in how you should take them. ? Carry your medicine list with you at all times. It will be needed if you have a health emergency . ? Give the list to your family doctor. Take the list to all your doctor visits. Call your doctor if you have any of the following ? Temperature higher than 101.5??F ? Chest pain or difficulty breathing ? Stomach sickness or throwing up that does not go away ? You cannot urinate by bedtime ? Pain is not helped by your medicine. ? Bandage becomes soaked with blood - Don't remove the bandage, reinforce only ? Swelling, redness, pain or pus from incision ? Questions or concerns about your surgery. In the event of an emergency, please go to the closest Emergency Room or call the Emergency Department at [phone]. Smoking and its health risks ? Smoking is the most preventable cause of illness and in the [place]. Cigarettes are filled with poison that goes into the lungs as you inhale. About 440,000 people every year from illnesses caused by smoking. People who smoke earlier than those who do not smoke. ? Heart and blood vessel disease, lung disease and ulcers are just some of the health problems thatmay be caused by smoking. Smoking also slows bone and wound healing and may slow your recovery fromsurgery. ? For help quitting smoking, call the [employer] [place]'s Quitline toll free at or ask your doctor for help. Weight Management ? Weighing too much is not good for your health. Being overweight increases your risk of health conditions such as heart problems, high blood pressure, type 2 diabetes, and certain types of cancer. Being overweight can also increase your risk for osteoarthritis (yu-slz-dq-sma-PAJF-ybm) (joint disease), sleep apnea (abnormal breathing at night) or other respiratory (breathing) problems. Being overweight may also cause a person to feel sad or be treated differently by others. ? The best way to lose weight is to eat fewer calories and get regular exercise. Eating more calories than you need will cause you to gain weight. Try to cut down your calories by 500 calories per day. For example, cut down on one soda (about 150 calories), a small bag of regular potato chips (about 150 calories) and one chocolate bar (about 250 calories). For most people, this change will resultin a slow weight loss of about one pound a week. Exercise (for example, walk, swim, or bicycle) forat least 30 minutes on most days of the week. You will be more likely to keep weight off if you make lifelong lifestyle changes. ? Aim for a slow, steady weight loss. Losing even a small amount of weight can lower your risk of health problems. Ask your dietitian, batch still operator or doctor about a weight loss goal that is right for you. 03/08 * Op Note - Ashlee Stephens MD - 12/24/2024 7:43 AM EDT Operative Note Date: 12/24/24 Location: [facility] OR Name: Anita Hiadlgo, : 1980, Diagnoses: Pre-op Diagnosis Hidradenitis suppurativa of anus Perianal fistula due to Crohn's disease (CMS/HCC) Post-op Diagnosis Hidradenitis suppurativa of anus Perianal fistula due to Crohn's disease (CMS/HCC) Procedure(s): Excision of hidradenitis suppurative of the anus. Incision and drainage of fistula with placement of draining seton Attending Surgeon(s): * Ahslee Stephens - Primary Welding Setter(s): * Waqar Calderon MD - Resident - Assisting Anesthesia: General with local block (Marcaine and Exparel) ASA: III Blood Administration: Blood Product Administration History None Estimated Blood Loss: Minimal Drains: * None in log * Specimen: Specimens ID Source Frozen? 1 Anus No Description: left lateral anal lesion 2 Buttock, Left No Description: left gluteal hidratinitis 3 Anus No Description: left posteror anal lesion 4 Anus No Description: right posterior anal lesion 5 Buttock, Left No Description: left posterior gluteal lesion Findings: right posterior and left posterior areas appeared somewhat dysplastic. There was also a right lateral area with skin tags that appeared dysplastic. She has a posterior midline low transsphincteric fistula. There was HS on left lateral and the gluteal area with small abscess with pus. Indications: Anita Hidalgo is an 44 y.o. female who is having surgery for Hidradenitis suppurativa of anus and Perianal fistula due to Crohn's disease (CMS/HCC). We discussed excision of these areas and placement of draining seton. Narrative: The patient was brought to the OR, placed on the table in the supine position and underwent GETA. They were rolled into the prone position and their buttocks were taped apart and the perianal area was prepped and draped in the normal sterile fashion. Marcaine with Epinephrine and Exparel was injected into the intersphincteric groove and perianal tissues for a perianal block. We then examined the anus, identified the above findings. Elliptical incisions were made over the right posterior, left posterior (surrounding the fistla), and right lateral areas with HS. They were dissected carefully upoff of the sphincter and then closed with continuous 2-0 chromic sutures. We examined the right lateral area. We incorporated the lateral part of the previous incision and extended it laterally, excising all involved tissue. We closed the deep tissues with 3-0 Chromic. We closed the skin with interrupted 3-0 Monocryl vertical mattress sutures. For each of these incisions we left a port open to drain and heal by secondary intention. We noticed an indurated area on the left buttock. We made an elliptical incision over this and encountered purulent fluid. We excised this and left this incision open to heal by secondary intention. We examined the wounds for hemostasis and the anus was irrigatedwith saline. Additional Marcaine and Exparel was used for post op local anesthesia. Sterile dressings were applied and they were returned to the supine position. The patient was awakened in the OR and taken to recovery in stable condition. I was present for the entire procedure. At the time of surgery, the following signs of infection were present: david purulence and an abscess. Complications: None; patient tolerated the procedure well. Submitted by: Ashlee Stephens MD - 12/24/2024 * H&P - Waqar Calderon MD - 12/24/2024 6:00 AM EDT Subjective Chief complaint Perianal crohn's with fistula and HDS History Of Present Illness Anita Hidalgo is a 44 year old female with PMHx of Crohn's disease with fistula and HS. She was last seen in clinic on 11/20/24 and reported feeling better but continued to have symptoms on the right. She presents today for EUA excision of HS and possible seton and excision to posterior area. Today, the patient reports feeling well and ready for surgery. Patient denies any changes to her health or resent hospitalization. She denies nausea, vomiting, chest pain, SOB, fevers, chills, feeling sick, or any other symptoms. Patient denies taking any blood thinners. Reports been NPO since midnight. Medical/Surgical/Social/Family History I have reviewed and updated the patient history. Allergies Clavulanic acid, Shrimp extract, Sulfa drugs, and Amoxicillin-pot clavulanate Medications Current Medications[1] Objective A ROS was obtained and is negative unless documented above. Physical Exam Constitutional: General: She is not in acute distress. Appearance: She is not ill-appearing. Cardiovascular: Rate and Rhythm: Normal rate. Pulmonary: Effort: Pulmonary effort is normal. No respiratory distress. Comments: RA Abdominal: General: There is no distension. Palpations: Abdomen is soft. Tenderness: There is no abdominal tenderness. Skin: General: Skin is warm and dry. Neurological: General: No focal deficit present. Mental Status: She is alert. Psychiatric: Mood and Affect: Mood normal. Behavior: Behavior normal. Last Recorded Vitals There were no vitals taken for this visit. Results Review I have reviewed the latest lab and imaging results. Assessment & Plan Perianal fistula due to Crohn's disease (CMS/HCC) Hidradenitis suppurativa of anus Patient to OR today for Evaluation under anesthesia, possible seton placement, possible excision - The risks, benefits, indications, contraindications, and surgical alternatives were explained to the patient. Specifically, the risks of surgery, including bleeding, infection, injury to nearby organs or structures, need for additional surgery or procedures, wound complications, and complicationsof general anesthesia. Commonly associated risks of the procedure where also discussed with the patient in detial. The patient participated in the discussion and was given an opportunity to ask questions. All questions where answered to the patient's verbal satisification. - Written and informed consent was then signed and is located in the patient's chart. - NPO since midnight Waqar Calderon MD [1] No current facility-administered medications for this encounter. Cosigned by Ashlee Stephens MD at 12/25/2024 7:33 AM EDT Associated attestation - Ashlee Stephens MD - 12/25/2024 7:33 AM EDT I saw and evaluated the patient with the resident/fellow. I discussed the case with the resident/fellow and agree with the findings and plan as documented. * PAT Phone Note - Shelby Sellers RN - 12/14/2024 2:10 PM EDT VALERIE Hidalgo is a 44 y.o. female who presents with Pre-op Diagnosis * Hidradenitis suppurativa of anus [L73.2] * Perianal fistula due to Crohn's disease ([facility]) [K50.913, K60.30] now scheduled for INCISION AND DRAINAGE, ABSCESS, ISCHIORECTAL OR INTRAMURAL, WITH FISTULECTOMY OR FISTULOTOMY; excision of hidraditis suppurativa (N/A). Past Medical History[1] Family History[2] Social History[3] SURGICAL HISTORY: Surgical History[4] Allergies[5] MEDICATIONS: Current Medications[6] Shelby Sellers RN [1] Past Medical History: Diagnosis Date Acute pharyngitis, unspecified Acute pharyngitis Acute sinusitis, unspecified Acute sinusitis Allergic Anemia Anxiety Arthritis Asthma Breast cyst 15 years ago Calcaneal spur, unspecified foot Calcaneal spur Candidiasis of vulva and vagina Vaginal yeast infection Clotting disorder (CMS/[facility]) 2006 DVT left leg after a miscarriage Crohn's disease of large intestine without complications (CMS/HCC) Crohn's colitis Cutaneous abscess of abdominal wall Abscess of skin of abdomen Cutaneous abscess of buttock Abscess of gluteal region Encounter for contraceptive management, unspecified Contraception management Encounter for general adult medical examination without abnormal findings Normal routine physical examination Encounter for gynecological examination (general) (routine) without abnormal findings Encounter for annual routine gynecological examination Encounter for gynecological examination (general) (routine) without abnormal findings Encounter for gynecological examination with Papanicolaou smear of cervix Encounter for insertion of intrauterine contraceptive device Encounter for insertion of mirena IUD Encounter for removal of intrauterine contraceptive device Encounter for IUD removal Encounter for routine follow-up Encounter for visit Encounter for surveillance of contraceptives, unspecified Contraceptive surveillance Excessive and frequent menstruation with regular cycle Menorrhagia with regular cycle Follicular cyst of the skin and subcutaneous tissue, unspecified Cyst of skin GERD (gastroesophageal reflux disease) H/O hidradenitis suppurativa Hypertension Left lower quadrant pain Abdominal pain, LLQ (left lower quadrant) Low back pain Lumbago without sciatica Myalgia, other site Musculoskeletal pain Other abnormal and inconclusive findings on diagnostic imaging of breast Mammogram abnormal Palpitations Palpitations Personal history of diseases of the skin and subcutaneous tissue History of contact dermatitis Personal history of other diseases of the circulatory system History of hypertension Personal history of other diseases of the female genital tract History of dysmenorrhea Personal history of other diseases of the respiratory system History of allergic rhinitis Personal history of other diseases of the respiratory system History of bronchitis Personal history of other medical treatment History of screening mammography Personal history of other venous thrombosis and embolism History of DVT (deep vein thrombosis) Rectal abscess Nataliia-rectal abscess Supervision of elderly multigravida, unspecified trimester Antepartum elderly multigravida Supervision of high risk , unspecified, unspecified trimester High-risk supervision Unspecified lump in unspecified breast Lump or mass in breast [2] Family History Problem Relation Name Age of Onset Breast cancer Mother Vivian Heart disease Mother Vivian Cancer Mother Vivian Hypercholesterolemia Mother Vivian Asthma Mother Vivian Arthritis Mother Vivian Heart disease Father Sheridan Hypercholesterolemia Father Sheridan Arthritis Father Sheridan Breast cancer Sister Breast cancer Sister [3] Social History Tobacco Use Smoking status: Former Current packs/day: 0.00 Average packs/day: 1 pack/day for 26.0 years (26.0 ttl pk-yrs) Types: Cigarettes Start date: 03/28/1997 Quit date: 03/28/2023 Years since quittin.7 Passive exposure: Never Smokeless tobacco: Never Tobacco comments: Light cigarette smoker (1-9 cigarettes per day) Vaping Use Vaping status: Never Used Substance Use Topics Alcohol use: Yes Comment: 1-2 times a month Drug use: Never [4] Past Surgical History: Procedure Laterality Date ANAL FISTULOTOMY several repairs ANUS SURGERY 06/18/2024 subcutaneous fistulotomy; incisino and drainage, excision of anal lesion SECTION, LOW TRANSVERSE CHOLECYSTECTOMY DILATION AND CURETTAGE OF UTERUS N/A Dilation And Curettage from [facility] NOSE SURGERY N/A Nose Surgery from [facility] SALPINGECTOMY N/A Oviductal Surgery Bilateral Salpingectomy from [facility] TOTAL HYSTERECTOMY, LAPAROSCOPY N/A Laparoscopy With Total Hysterectomy from [facility] [5] Allergies Allergen Reactions Clavulanic Acid Hives Shrimp Extract Anaphylaxis and Hives Sulfa Drugs Swelling and Vomiting Amoxicillin-Pot Clavulanate Hives and Itching Patient has tolerated amoxicillin alone [6] No current facility-administered medications for this encounter. Current Outpatient Medications: Simlandi (2 Pen), INJECT THE CONTENTS OF TWO PENS (80MG) SUBCUTANEOUSLY ONCE WEEKLY Directed. Refrigerate, do not freeze, allow to come to room temp before (Patient taking differently: INJECT THE CONTENTS OF TWO PENS (80MG) SUBCUTANEOUSLY ONCE WEEKLY Directed. Refrigerate, do not freeze, allow to come to room temp before On Wednesdays) allopurinol, Take 1 tablet by mouth daily. B Complex-C (SUPER B COMPLEX PO), Take 1 tablet by mouth daily. busPIRone, TAKE 1 TABLET BY MOUTH TWICE DAILY MAY CAUSE DROWSINESS cholecalciferol, Take 1 capsule by mouth 1 time per week. On Saturdays dicyclomine, TAKE 1 CAPSULE BY MOUTH FOUR TIMES DAILY IF NEEDED (CRAMPING). doxycycline, Take 1 capsule by mouth daily. hydroCHLOROthiazide, Take 1 tablet by mouth 1 time each day. lamoTRIgine, Take 2 tablets by mouth 1 time each day. Lysine, daily. mercaptopurine, Take 1 tablet (50 mg total) by mouth daily. metFORMIN, Take 1 tablet by mouth daily with breakfast. methocarbamol, as needed. multivitamin, Take 1 tablet by mouth 1 time each day. omeprazole, Take 1 capsule by mouth 1 time each day. A needed sertraline, Take 1.5 tablets by mouth 1 time each day. spironolactone, Take 1 tablet by mouth daily. tretinoin, Apply topically as needed. bisacodyl, Take all 4 tablets at 4 PM on day before colonoscopy . Do not crush, chew, or split. (Patient not taking: Reported on 11/20/2024) Vitamin D-3, Take 1 tablet (5,000 Units) by mouth 1 (one) time per week. (Patient not taking: Reported on 12/14/2024) cholecalciferol, as needed. (Patient not taking: Reported on 11/20/2024) clindamycin, Apply topically as needed. (Patient not taking: Reported on 11/20/2024) * Preprocedure Instructions - Shelby Sellers RN - 12/14/2024 2:05 PM EDT Home Medication Instructions Current Medications Medication Instructions Adalimumab-ryvk (Simlandi, 2 Pen,) 40 MG/0.4ML Auto-injector Kit Consult surgeon for instructions allopurinol (Zyloprim) 100 MG tablet Take morning of surgery B Complex-C (SUPER B COMPLEX PO) Hold 7 days before surgery busPIRone (Buspar) 5 MG tablet Take as needed cholecalciferol (Vitamin D-3) 1.25 MG (21632 UT) capsule Hold 7 days before surgery dicyclomine (Bentyl) 10 MG capsule Take as needed doxycycline (Vibramycin) 100 MG capsule Take morning of surgery hydroCHLOROthiazide (HYDRODiuril) 25 MG tablet Hold day of surgery lamoTRIgine (LaMICtal) 25 MG tablet Take morning of surgery Lysine 1000 MG tablet Hold 7 days before surgery mercaptopurine (Purixan) 50 MG tablet Consult surgeon for instructions metFORMIN (Glucophage) 500 MG tablet Hold 48 hours before surgery methocarbamol (Robaxin) 750 MG tablet Take as needed multivitamin (Theragran-M) tablet Hold 7 days before surgery omeprazole (PriLOSEC) [address] capsule Take as needed sertraline (Zoloft) 100 MG tablet Take morning of surgery spironolactone (Aldactone) 100 MG tablet Hold day of surgery tretinoin (Retin-A) 0.025 % cream Hold day of surgery General Preoperative Instructions You will be called the business day before surgery with your arrival time Your surgery is at [facility] located at [address] [place] [address] Please park in the parking garage and enter the building at Entrance A and check-in inside Do not eat any food after midnight the night before your surgey. Do not drink any coffee or tea butyou can have clear liquids up to 2 hours prior to arrival. Do not try to get all your hydration in 2 hours prior to your arrival. Start the day before surgery drinking more than you normally would. After midnight, you can have clear liquids: water, apple juice, Gatorade or Powerade up to 2 hours prior to arrival time No alcohol within 24 hours of surgery Do not smoke, vape or use any tobacco products after midnight the night before your surgery Arrive on time to avoid delays You MUST have a responsible adult available for transport to and from hospital If you spend the night in the hospital you are allowed to have one adult visitor spend the night inyour room You are allowed to have 2 adult visitors with you on the day of surgery Bring insurance card, photo ID, along with power of deputy attorney general, guardianship or advanced directives if applicable Do not bring any valuables Hibiclens bathing instructions reviewed if applicable; if you do not receive Hibiclens you may buy Dial antibacterial soap and shower with it the night before your surgery and the morning of surgery Notify surgeon of fever, illness, any changes or if you decide not to have surgery Arrive on time to avoid delays Parking/Registration procedure explained You MUST have a responsible adult available for transport to and from hospital Visitation policy for the day of surgery reviewed Bring insurance card, photo ID, along with power of deputy attorney general, guardianship or advanced directives if applicable Do not bring money, jewelry or other valuables Hibiclens bathing instructions reviewed if applicable Notify surgeon of fever, illness, any changes or if you decide not to have surgery Pediatric patients under 12 years of age (If applicable) No solid food or milk after midnight Formula 6 hours prior to arrival for surgery Breast milk 4 hours prior to arrival surgery Clear liquids 2 hours prior to arrival for surgery Diabetes Instructions (If applicable) Take diabetes medication as instructed You may have up to 4 ounces of apple juice 2 hours prior to arrival for surgery for low glucose documented in this encounter Plan of Treatment Upcoming Encounters Date Type Department Care Team (Late st Contact Info) Description 02/19/2025 10:40 AM EST Office Visit [facility] Medicine Specialties [address] [place] [address] Judit León, [address] [place] [address] 02/19/2025 11:30 AM EST Office Visit [facility] General Surgery [address], [address] [place] [address] Ashlee Stephens MD [address] [place] [address] documented as of this encounter Procedures Procedure Name Priority Date/Time Associated Diagnosis Comments SURGICAL PATHOLOGY EXAM Routine 12/24/2024 7:46 AM EDT Hidradenitis suppurativa of anus Perianal fistula due to Crohn's disease ([facility]) TN I&D RECTAL ABSCESS + FISTULECTOMY 12/24/2024 7:08 AM EDT Hidradenitis suppurativa of anus Perianal fistula due to Crohn's disease ([facility]) POCT GLUCOSE METER UNSOLICITED RESULTS Routine 12/24/2024 6:26 AM EDT documented in this encounter Results * Surgical Pathology Exam (12/24/2024 7:46 AM EDT) Case Report Surgical Pathology Case: [id number] Authorizing Provider: Ashlee Stephens MD Collected: 12/24/2024 0812 Ordering Location: [facility] Operating Room Received: 12/24/2024 1045 Pathologist: Fernando Fonseca MD Specimens: A) - Anus, left lateral anal lesion B) - Buttock, Left, left gluteal hidratinitis C) - Anus, left posteror anal lesion D) - Anus, right posterior anal lesion E) - Buttock, Left, left posterior gluteal lesion 1:06 PM EDT [facility] Final Diagnosis A. LEFT LATERAL ANAL LESION, EXCISION: - HYPERPARAKERATOSI S, CHRONIC INFLAMMATION AND FIBROSIS - NO EVIDENCE OF DYSPLASIA OR MALIGNANCY B. LEFT GLUTEAL HIDRADENITIS, EXCISION: - FINDINGS CONSISTENT WITH HIDRADENITIS SUPPURATIVA C. LEFT POSTEROR ANAL LESION, EXCISION: - HYPERPARAKERATOSI S, CHRONIC INFLAMMATION AND FIBROSIS - NO EVIDENCE OF DYSPLASIA OR MALIGNANCY D. RIGHT POSTERIOR ANAL LESION, EXCISION: - HYPERPARAKERATOSI S, CHRONIC INFLAMMATION AND FIBROSIS - NO EVIDENCE OF DYSPLASIA OR MALIGNANCY E. LEFT POSTERIOR GLUTEAL LESION, EXCISION: - HYPERPARAKERATOSI S, CHRONIC INFLAMMATION AND FIBROSIS - NO EVIDENCE OF DYSPLASIA OR MALIGNANCY 1:06 PM EDT [facility] at 1306 EDT Clinical Information Hidradenitis suppurativa of anus [L73.2] Perianal fistula due to Crohn's disease (CMS/HCC) [K50.913, K60.30] OP Findings: right posterior and left posterior areas appeared somewhat dysplastic. There was also a right lateral area with skin tags that appeared dysplastic. She has a posterior midline low transsphincteric fistula. There was HS on left lateral and the gluteal area with small abscess with pus. 1:06 PM EDT [facility] Special and Immunohistochemical Stains IHC: A1-2 P16 Patchy weak staining (interpreted as negative) A1-3 T. Pallidum (Spirochete) Negative All controls show appropriate reactivity. All immunohistochemis try, in situ hybridization, and histochemical tests were developed by and are performed at the [facility], [address] [place] [address]. All tests reported here, except those addressing HER2 (breast) and PD-L1 expression as predictive markers, have not been cleared by or approved by the US Food and Drug Administration (FDA). The FDA has determined that such clearance or approval is not necessary. The laboratory is regulated under CLIA as qualified to perform high-complexity testing. The tests are used for clinical purposes. They should not be regarded as investigational or for research. This assay has not been validated on decalcified tissues. Results should be interpreted with caution given the likelihood of false negativity on decalcified specimens. 5 1:06 PM EDT [facility] Gross Description A. LEFT LATERAL ANAL LESION Received in formalin labeled left lateral anal lesion is a portion of pink-garcia fibrous skin measuring 4.5 x up to 1.5 x up to 1.5 cm. The skin/mucosal surface is undulating and wrinkled but otherwise grossly unremarkable. Resection margin inked blue and medical billing representative sections are submitted in cassette A1. Cold Time: <1m Betty Quezada (Entirely submitted in cassettes A2-A5 10.2.25 -KP) B. LEFT GLUTEAL HIDRATINITIS Received in formalin labeled left gluteal hidradenitis is a portion of pink-millan skin measuring 6.7 x up to 2.9 x up to 2.5 cm. The skin surface is undulating and wrinkled otherwise grossly unremarkable. Resection margin inked blue and a full-thickness cross-section is submitted in cassette B1. Cold Time: 1m Betty Quezada C. LEFT POSTEROR ANAL LESION Received in formalin labeled left posterior anal lesion portion of pink-millan fibrous skin measuring 3.2 x 1.2 x 0.6 cm. The skin/mucosal surface is undulating and wrinkled but otherwise grossly unremarkable. Resection margin inked blue medical billing representative sections are submitted in cassette C1. Cold Time: <1m Betty Quezada (entirely submitted in cassettes C2-C3 10.2.25 -KP) D. RIGHT POSTERIOR ANAL LESION Received in formalin labeled right posterior anal lesion is a portion of pink-garcia fibrous skin measuring 3.5 x 1.3 x 0.7 cm. The skin/mucosal surface is undulating, wrinkled, and slightly crusted. Resection margin inked blue and medical billing representative sections are submitted in cassette D1. Cold Time: <1m Betty Quezada (entirely submitted in cassettes D2-D3 10.2.25 -KP) E. LEFT POSTERIOR GLUTEAL LESION Received in formalin labeled left posterior gluteal lesion is a portion of pink-millan fibrous skin measuring 3.2 x 1.1 x 1.0 cm. The skin surface is bumpy and wrinkled but otherwise grossly unremarkable. Resection margin inked blue and medical billing representative sections are submitted in cassette E1. Cold Time: <1m Betty Quezada (entirely submitted in cassettes E2-E4 10.2.25 -KP) 1:06 PM EDT [facility] Intradepartmental Consultation with Agreement Portions of this case were also reviewed by Dr. Casandra Boland, with agreement upon the overall impressions. 1:06 PM EDT [facility] Note: A resident was involved in the service. I attest I examined the relevant preparations for the specimens and confirmed the diagnosis or interpretation. 1:06 PM EDT [facility] Tissue Anal structure / Unknown 12/24/2024 7:58 AM EDT 12/24/2024 10:45 AM EDT Comment:Pre-op diagnosis: Hidradenitis suppurativa of anus [L73.2] Perianal fistula due to Crohn's disease (CMS/HCC) [K50.913, K60.30] Tissue specimen (specimen) Structure of left buttock / Unknown 12/24/2024 8:12 AM EDT 12/24/2024 10:45 AM EDT Comment:Pre-op diagnosis: Hidradenitis suppurativa of anus [L73.2] Perianal fistula due to Crohn's disease (CMS/HCC) [K50.913, K60.30] Tissue specimen (specimen) Anal structure / Unknown 12/24/2024 7:54 AM EDT 12/24/2024 10:45 AM EDT Comment:Pre-op diagnosis: Hidradenitis suppurativa of anus [L73.2] Perianal fistula due to Crohn's disease (CMS/HCC) [K50.913, K60.30] Tissue specimen (specimen) Anal structure / Unknown 12/24/2024 7:46 AM EDT 12/24/2024 10:45 AM EDT Comment:Pre-op diagnosis: Hidradenitis suppurativa of anus [L73.2] Perianal fistula due to Crohn's disease (CMS/HCC) [K50.913, K60.30] Tissue specimen (specimen) Structure of left buttock / Unknown 12/24/2024 8:26 AM EDT 12/24/2024 10:45 AM EDT Comment:Pre-op diagnosis: Hidradenitis suppurativa of anus [L73.2] Perianal fistula due to Crohn's disease (CMS/HCC) [K50.913, K60.30] Ashlee Stephens MD LAB PATHOLOGY ORDERABLES Final Result Performing Organization Address City/[facility]/ZIP Co de Phone Number [facility] [address] [place] [address] * (ABNORMAL) POCT glucose meter (12/24/2024 6:26 AM EDT) POCT Glucose 104(H) 74 - 99 mg/dL 12/24/2024 6:28 AM EDT [facility] Comment:Accuracy of a glucos e result obtained from a capillary whole blood specimen relies upon adequate, non-compromised capillary blood flow. If the capillary glucose result is not consistent with the patient's clinical signs and symptoms, glucose testing should be repeated with either an arterial or venous sample on the glucometer or sent to the main labortory for testing. Comment 12/24/2024 6:28 AM EDT [facility] I&C Technician ID Reshma Thornton 12/24/2024 6:28 AM EDT [facility] Device ID [id number] 12/24/2024 6:28 AM EDT [facility] Specimen Type POC Capillary 12/24/2024 6:28 AM EDT [facility] Blood Capillary blood specimen / Unknown 12/24/2024 6:26 AM EDT 12/24/2024 6:28 AM EDT us Ashlee Stephens MD LAB POINT OF CARE TE ST DOCKED DEVICE UNSOLICITED RESULTS Final Result Performing Organization Address City/[facility]/ZIP Co de Phone Number [facility] [address] [place] [address] documented in this encounter Visit Diagnoses Diagnosis Hidradenitis suppurativa of anus Hidradenitis Perianal fistula due to Crohn's disease (CMS/HCC) documented in this encounter Admitting Diagnoses Diagnosis Hidradenitis suppurativa of anus Hidradenitis Perianal fistula due to Crohn's disease ([facility]) documented in this encounter Administered Medications Inactive Administered Medications - up to 3 most recent administrations Medication Order MAR Action Action Date Dose Rate Site acetaminophen (Tylenol) tablet 1,000 mg 1,000 mg, Oral, Once, 1 dose, On Tue12/24/24 at 0700, Routine, Holding - Preprocedure Given 12/24/2024 6:48 AM EDT 1,000 mg droperidol (Inapsine) injection 0.625 mg 0.625 mg, Intravenous, Once as needed, 1 dose, Starting on Tue12/24/24 at 0829, Until Tue12/24/24 at 0844, Routine, Recovery (Phase I only), nausea, vomiting Given 12/24/2024 8:44 AM EDT 0.625 mg fentaNYL (Sublimaze) injection 25 mcg 25 mcg, Intravenous, Every 5 min PRN, 2 doses, Starting on Tue12/24/24 at 0829, Until Tue12/24/24 at 1140, Routine, Recovery (Phase I only), pain score of 3-4 out of 10 fentaNYL (Sublimaze) injection 50 mcg 50 mcg, Intravenous, Every 5 min PRN, 2 doses, Starting on Tue12/24/24 at 0829, Until Tue12/24/24 at 1140, Routine, Recovery (Phase I only), pain score of 5-8 out of 10 HYDROmorphone (Dilaudid) injection 0.5 mg 0.5 mg, Intravenous, Every 10 min PRN, 2 doses, Starting on Tue12/24/24 at 0829, Until Tue12/24/24 at 1140, Routine, Recovery (Phase I only), pain score of 9-10 out of 10 lactated Ringer's infusion 10 mL/hr, Intravenous, Once, 1 dose, On Tue12/24/24 at 0700, Routine New Bag 12/24/2024 6:48 AM EDT 10 mL/hr 10 mL/hr naloxone (Narcan) injection 0.4 mg 0.4 mg, Intravenous, As needed, Starting on Tue12/24/24 at 0829, Until Tue12/24/24 at 1140, Routine, Recovery (Phase I only), respiratory depression ondansetron (Zofran) injection 4 mg 4 mg, Intravenous, Once as needed, 1 dose, Starting on Tue12/24/24 at 0829, Until Tue12/24/24 at 1140, Routine, Recovery (Phase I only), nausea, vomiting oxyCODONE (Roxicodone) immediate release tablet 10 mg 10 mg, Oral, Once as needed, 2 doses, Starting on Tue12/24/24 at 0829, Until Tue12/24/24 at 1140, Routine, Recovery (Phase I only), pain score of 6-8 out of 10 oxyCODONE (Roxicodone) immediate release tablet 5 mg 5 mg, Oral, Once as needed, 2 doses, Starting on Tue12/24/24 at 0829, Until Tue12/24/24 at 1140, Routine, Recovery (Phase I only), pain score of 3-5 out of 10 Given 12/24/2024 8:55 AM EDT 5 mg scopolamine (Transderm-Scop) patch 1 patch 1 patch, Transdermal, Once, 1 dose, On Tue12/24/24 at 0700, Routine, Holding - Preprocedure Medication Applied 12/24/2024 6:49 AM EDT 1 patch Behind Right Ear sodium chloride 0.9 % flush 10 mL 10 mL, Intravenous, Every 8 hours PRN, Starting on Tue12/24/24 at 0603, Until Tue12/24/24 at 1140, Routine, Holding - Preprocedure, line care sodium chloride 0.9 % flush 10 mL 10 mL, Intravenous, As needed, Starting on Tue12/24/24 at 0603, Until Tue12/24/24 at 1140, Routine, Holding - Preprocedure, line care sodium chloride 0.9 % flush 10 mL 10 mL, Intravenous, Every 12 hours, First dose on Tue12/24/24 at 0700, Until Discontinued, Routine, Holding - Preprocedure sodium chloride 0.9 % flush 10 mL 10 mL, Intravenous, As needed, Starting on Tue12/24/24 at 0603, Until Tue12/24/24 at 1140, Routine, Holding - Preprocedure, line care documented in this encounter Active and Recently Administered Medications Times are shown in EDT. Scheduled Medication Order 12/22/2024 12/23/2024 12/24/2024 acetaminophen (Tylenol) tablet 1,000 mg (COMPLETED) 1,000 mg, Oral, Once, 1 dose, On Tue12/24/24 at 0700, Routine, Holding - Preprocedure 0648 (Given - Provid er: Yojana Boland RN) bupivacaine liposome (Exparel) 1.3 % injection 266 mg (COMPLETED) 266 mg (20 mL), Infiltration, Once, 1 dose, On Tue12/24/24 at 0700, Routine, Intraprocedure 0700 (Due)0825 (Give n - Provider: Ashlee Stephens MD) lactated Ringer's infusion (COMPLETED) 10 mL/hr, Intravenous, Once, 1 dose, On Tue12/24/24 at 0700, Routine 0648 (New Bag - Prov ider: Yojana Boland, RN) lactated Ringer's infusion 20 mL/hr, Intravenous, Once, 1 dose, On Tue12/24/24 at 0915, Routine 0915 (Canceled Entry - Provider: Automatic Discharge Provider - Comment: Automatically canceled at discontinue of medication order) scopolamine (Transderm-Scop) patch 1 patch 1 patch, Transdermal, Once, 1 dose, On Tue12/24/24 at 0700, Routine, Holding - Preprocedure 0649 (Medication Catracho lied - Provider: Yojana Boland RN)0940 (Due: Medication Removed - Provider: Automatic Discharge Provider - Comment: Time automatically adjusted from order being discontinued) sodium chloride 0.9 % flush 10 mL(Linked Group 1) 10 mL, Intravenous, Every 12 hours, First dose on Tue12/24/24 at 0700, Until Discontinued, Routine, Holding - Preprocedure 0700 (Canceled Entry - Provider: Automatic Discharge Provider - Comment: Automatically canceled at discontinue of medication order) PRN Medication Order 12/22/2024 12/23/2024 12/24/2024 bupivacaine-EPINEPHrine PF (Marcaine w/EPI) 0.25% -[id number] injection (CANCELED) As needed, Starting on Tue12/24/24 at 0824, Until Tue12/24/24 at 0839, Routine, Intraprocedure 0824 (Given - Provid er: Ashlee Stephens MD) droperidol (Inapsine) injection 0.625 mg (COMPLETED) 0.625 mg, Intravenous, Once as needed, 1 dose, Starting on Tue12/24/24 at 0829, Until Tue12/24/24 at 0844, Routine, Recovery (Phase I only), nausea, vomiting 0844 (Given - Provid er: Amee Ortiz RN) fentaNYL (Sublimaze) injection 25 mcg 25 mcg, Intravenous, Every 5 min PRN, 2 doses, Starting on Tue12/24/24 at 0829, Until Tue12/24/24 at 1140, Routine, Recovery (Phase I only), pain score of 3-4 out of 10 fentaNYL (Sublimaze) injection 50 mcg 50 mcg, Intravenous, Every 5 min PRN, 2 doses, Starting on Tue12/24/24 at 0829, Until Tue12/24/24 at 1140, Routine, Recovery (Phase I only), pain score of 5-8 out of 10 HYDROmorphone (Dilaudid) injection 0.5 mg 0.5 mg, Intravenous, Every 10 min PRN, 2 doses, Starting on Tue12/24/24 at 0829, Until Tue12/24/24 at 1140, Routine, Recovery (Phase I only), pain score of 9-10 out of 10 naloxone (Narcan) injection 0.4 mg 0.4 mg, Intravenous, As needed, Starting on Tue12/24/24 at 0829, Until Tue12/24/24 at 1140, Routine, Recovery (Phase I only), respiratory depression ondansetron (Zofran) injection 4 mg 4 mg, Intravenous, Once as needed, 1 dose, Starting on Tue12/24/24 at 0829, Until Tue12/24/24 at 1140, Routine, Recovery (Phase I only), nausea, vomiting oxyCODONE (Roxicodone) immediate release tablet 10 mg(Linked Group 2) 10 mg, Oral, Once as needed, 2 doses, Starting on Tue12/24/24 at 0829, Until Tue12/24/24 at 1140, Routine, Recovery (Phase I only), pain score of 6-8 out of 10 0855 (See Alternativ e - Provider: Amee Ortiz RN) oxyCODONE (Roxicodone) immediate release tablet 5 mg(Linked Group 2) 5 mg, Oral, Once as needed, 2 doses, Starting on Tue12/24/24 at 0829, Until Tue12/24/24 at 1140, Routine, Recovery (Phase I only), pain score of 3-5 out of 10 0855 (Given - Provid er: Amee Ortiz RN - Comment: To get ahead of the pain) sodium chloride 0.9 % flush 10 mL(Linked Group 3) 10 mL, Intravenous, Every 8 hours PRN, Starting on Tue12/24/24 at 0603, Until Tue12/24/24 at 1140, Routine, Holding - Preprocedure, line care sodium chloride 0.9 % flush 10 mL(Linked Group 3) 10 mL, Intravenous, As needed, Starting on Tue12/24/24 at 0603, Until Tue12/24/24 at 1140, Routine, Holding - Preprocedure, line care sodium chloride 0.9 % flush 10 mL(Linked Group 1) 10 mL, Intravenous, As needed, Starting on Tue12/24/24 at 0603, Until Tue12/24/24 at 1140, Routine, Holding - Preprocedure, line care Linked Groups Order Group 1: Insert peripheral IV (CANCELED) Once, On Tue12/24/24 at 0604, For 1 occurrence, Holding - Preprocedure And Saline lock IV (CANCELED) Once, On Tue12/24/24 at 0604, For 1 occurrence, Holding - Preprocedure And sodium chloride 0.9 % flush 10 mLJump to med 10 mL, Intravenous, Every 12 hours, First dose on Tue12/24/24 at 0700, Until Discontinued, Routine, Holding - Preprocedure And sodium chloride 0.9 % flush 10 mLJump to med 10 mL, Intravenous, As needed, Starting on Tue12/24/24 at 0603, Until Tue12/24/24 at 1140, Routine, Holding - Preprocedure, line care Group 2: oxyCODONE (Roxicodone) immediate release tablet 5 mgJump to med 5 mg, Oral, Once as needed, 2 doses, Starting on Tue12/24/24 at 0829, Until Tue12/24/24 at 1140, Routine, Recovery (Phase I only), pain score of 3-5 out of 10 Or oxyCODONE (Roxicodone) immediate release tablet 10 mgJump to med 10 mg, Oral, Once as needed, 2 doses, Starting on Tue12/24/24 at 0829, Until Tue12/24/24 at 1140, Routine, Recovery (Phase I only), pain score of 6-8 out of 10 Group 3: Insert peripheral IV (CANCELED) Once, On Tue12/24/24 at 0604, For 1 occurrence, Holding - Preprocedure And Saline lock IV (CANCELED) Once, On Tue12/24/24 at 0604, For 1 occurrence, Holding - Preprocedure And sodium chloride 0.9 % flush 10 mLJump to med 10 mL, Intravenous, Every 8 hours PRN, Starting on Tue12/24/24 at 0603, Until Tue12/24/24 at 1140, Routine, Holding - Preprocedure, line care And sodium chloride 0.9 % flush 10 mLJump to med 10 mL, Intravenous, As needed, Starting on Tue12/24/24 at 0603, Until Tue12/24/24 at 1140, Routine, Holding - Preprocedure, line care documented in this encounter Additional Health Concerns Assessment Noted Time PHQ-9 Depression Total Score: 0 10/24/19 12:18 PM EDT A fall risk assessment has been complete d for the patient 10/23/2024 12:18 PM EDT A Body Mass Index follow-up plan has been documented for the patient 11/29/2024 7:33 AM EDT documented as of this encounter Care Teams Mixed Animal Veterinarian Relationship Specialty Start Date End Date Josseline Cox DO [address] [facility] [address] [place] [address] PCP - General 06/05/24 documented as of this encounter
--- OUTSIDE RECORDS SUMMARY | 2024-12-24 06:21 | XMS_ITS | Encounter Summary ---
Author Organization Healthcare Address [address] [place] [address] Care Team Providers Care Application Support Technician Name Role Phone Josseline Cox Primary Care Provider [phone] Reason for Visit * Auth/Cert (Routine) Specialty Diagnoses / Procedures Referred By Sy de leon Referred To Contact Diagnoses Hidradenitis suppurativa of anus Perianal fistula due to Crohn's disease (CMS/HCC) Hidradenitis suppurativa of anus [L73.2] Perianal fistula due to Crohn's disease (CMS/HCC) [K50.913, K60.30] Procedures KS I&D RECTAL ABSCESS + FISTULECTOMY INCISION AND DRAINAGE, ABSCESS, ISCHIORECTAL OR INTRAMURAL, WITH FISTULECTOMY OR FISTULOTOMY; excision of hidraditis suppurativa Ashlee Stephens MD [address] [facility] [address] [place] [address] Phone: tel: fax: [facility] Operating Room [address] [place] [address] Phone: tel: Referral ID Status Reason Start Date Expiration Date Visits Re quested Visits Authorized [id number] 1 1 Encounter Details Date Type Department Care Team ([facility] Contact Info) Description 12/24/2024 7:21 AM EDT Anesthesia Event [facility] S Operating Room [address] [place] [address] Anselmo Marmolejo MD [address] [place] [address] [phone] (work) Anesthesia Record Procedure Summary Procedure Name Responsible Anesthesiologist Anesthesia Start Time Anesthesia Stop Time INCISION AND DRAINAGE, ABSCESS, ISCHIORECTAL OR INTRAMURAL, WITH FISTULECTOMY OR FISTULOTOMY; excision of hidraditis suppurativa (Anus) Anselmo Marmolejo MD 12/24/24 0721 12/24/24 0847 Events Date Time Event Comment 12/24/2024 0636 0721 An Start The patient was reevaluated immediately before sedation and remains eligible for anesthesia plan. 0723 In Room 0723 An Start Data 0729 An Induction The patient was reevaluated immediately before moderate or deep sedation use and before anesthesia induction. 0731 An Intubation 0733 Anesthesia Ready 0736 An Data Art Positioning pt. 0737 Prone Pressure Check Eyes an d nose free of pressure 0743 Proc Start 0746 Prone Pressure Check Eyes an d nose free of pressure 0800 Prone Pressure Check Eyes an d nose free of pressure 0813 Prone Pressure Check Eyes an d nose free of pressure 0828 Proc Fin 0836 An Extubation 0837 an stop data 0839 Out of Room 0845 Handoff to Receiving I compl eted my handoff to the receiving clinician during which we: 1. Identified the patient 2. Identified the responsible provider 3. Reviewed the pertinent medical history 4. Discussed the surgical course 5. Reviewed intra-op anesthesia management and issues during anesthesia 6. Set expectations for post-procedure period 7. Allowed opportunity for questions and acknowledgement of understanding. 0847 An Stop Meds Name Total fentaNYL (Sublimaze) injection 50 mcg/mL 100 mcg lidocaine PF (Xylocaine-MPF) 2% 80 mg propofol (Diprivan) injection 10 mg/mL 2 00 mg rocuronium (ZeMuron) injection 10 mg/mL 50 mg dexamethasone (Decadron) injection 4 mg/ mL 4 mg HYDROmorphone PF (Dilaudid) injection 1 mg/mL 0.5 mg ondansetron (Zofran) injection 2 mg/mL 4 mg propofol (Diprivan) infusion 10 mg/mL 20 8.32 mg lactated Ringer's infusion 500 mL * Agents Name O2 Isoflurane * Blood No blood administrations on file. Lines, Drains, and Airways Type Details Placement Removal Wound 12/24/24; 0743; Surgical; Anus 12/24/24 0743 by Strong, Vy, RN Peripheral IV Orientation: Posteri or, Right; Location: Hand; Inserted by: yojana boland RN; Insertion Attempts: 1; Patient Tolerance: Tolerated well; Removal Date: 12/24/24; Removal Time: 92312/24/24 0647 by 12/24/24 09 by Amee Ortiz RN ETT Placement Date: 12/24/24; Placement Time: 730 (created via procedure documentation); Mask Ventilation: 1; Technique: Direct laryngoscopy; Type: ETT - single; Single Lumen Tube Size: 7 mm; Cuffed: Yes; Laryngoscope: Sabino; Blade Size: 3; Location: Oral; Grade View: Grade I; Insertion Attempts: 1; Placement Verification: Auscultation, Capnometry; Airway Comments: Atraumatic. No change to dentition. ; Placed by: CASSY; Removal Date: 12/24/24; Removal Time: 83512/24/24 07 by Elias Cope CRNA 12/24/24 08 by Elias Cope CRNA documented in this encounter Social History Tobacco Use Types Packs/Day Years [...] on file documented as of this encounter Functional Status * Calculated C-SSRS Risk Score (Lifetime/Recent) Answer Date of Assessment Author No Risk Indicated 12/24/2024 6:00 AM Do steph Mendez RN * Question Answer Date of Assessment Author 1. Wish to be (Past 1 Month) No 025 6:00 AM GREGT Yojana Boland RN 2. Non-Specific Active Suici jasmine Thoughts (Past 1 Month) No 12/24/2024 6:00 AM EDT Yojana Boland RN 6. Suicidal Behavior (Lifetime) No 6:00 AM EDT Yojana Boland RN documented as of this encounter Miscellaneous Notes * Anesthesia Postprocedure Evaluation - Elias Cope CRNA - 12/24/2024 9:03 AM EDT Patient: Anita A Rocky Anesthesia Type: general Vitals Value Taken Time BP 135/83 12/24/24 09:00 Temp 36.4 ??C (97.5 ??F) 12/24/24 08:40 Pulse 76 12/24/24 09:01 Resp 12 12/24/24 09:01 SpO2 91 % 12/24/24 09:01 Vitals shown include unfiled device data. Anesthesia Post Evaluation Patient location during evaluation: PACU Patient participation: complete - patient participated Level of consciousness: awake Pain management: adequate (pain score 0-3) Airway patency: natural airway Cardiovascular status: acceptable and hemodynamically stable Respiratory status: acceptable, face mask, nonlabored ventilation, spontaneous ventilation and unassisted Hydration status: stable Nausea/Vomiting: No No notable events documented. * Anesthesia Procedure Notes - Elias Cope CRNA - 12/24/2024 7:46 AM EDT Associated Order(s): Airway Airway Date/Time: 12/24/2024 7:31 AM Reason: elective Airway not difficult General Information and Staff Patient location during procedure: OR LIQUEFACTION AND REGASIFICATION HELPER: Elias Cope CRNA Performed: CASSY Patient Condition Indications for airway management: anesthesia Patient position: sniffing Final Airway Details Final airway type: endotracheal airway Successful airway: ETT Cuffed: yes Successful intubation technique: direct laryngoscopy Adjuncts used in placement: intubating stylet Endotracheal tube insertion site: oral Blade: Sabino Blade size: #3 ETT size (mm): 7.0 Cormack-Lehane Classification: grade I - full view of glottis Placement verified by: chest auscultation and capnometry Cuff volume (mL): 5 Measured from: lips ETT to lips (cm): 21 Additional Comments Atraumatic. No change to dentition. * Anesthesia Preprocedure Evaluation - Roxana Miller MD - 12/24/2024 6:33 AM EDT Anesthesiologist: Anselmo Marmolejo MD LIQUEFACTION AND REGASIFICATION HELPER: Elias Cope CRNA Patient: Anita Hidalgo HPI Anita Hidalgo is a 44 y.o. female with body mass index is unknown because there is no height or weight on file. who presents with No Principal Problem: There is no principal problem currently on the Problem List. Please update the Problem List and refresh., now for INCISION AND DRAINAGE, ABSCESS, ISCHIORECTAL OR INTRAMURAL, WITH FISTULECTOMY OR FISTULOTOMY; excision of hidraditis suppurativa (N/A) Procedure Information Date/Time: 12/24/24 0730 Procedure: INCISION AND DRAINAGE, ABSCESS, ISCHIORECTAL OR INTRAMURAL, WITH FISTULECTOMY OR FISTULOTOMY; excision of hidraditis suppurativa (Anus) - general prone 30 mintues exparel Location: [address] [address] [place] [address] OR Surgeons: Ashlee Stephens MD Pmhx of HTN (well controlled), GERD (well controlled), hx of DVT (many yrs ago after miscarriage, never been diagnosed with any clotting disorders), psoriatic arthritis.\. No problems with GA in the past, grade I view by DL 05/2024. Can achieve >4 METS. Appropriately NPO. Relevant Problems Cardio (+) Dyspnea (+) Essential hypertension /Renal (+) Fatty liver Other (+) Arthritis of right knee (+) Psoriatic arthritis of multiple joints (CMS/HCC) ALLERGIES Allergies[1] NPO STATUS Date of Last Liquid: 12/24/24 Time of Last Liquid: 0300 Date of Last Solid: 12/23/24 Past Medical History[2] AIRWAY HISTORY Airway Detailed Review Displaying the 20 most recent records Date Difficult Airway Blade Size ETT Size C-L Class Final Type Intubation Method 06/18/24 No 3 7.0 grade I - full view of glottis endotracheal airway direct laryngoscopy MEDICATIONS Outpatient Current Outpatient Medications Medication Instructions Adalimumab-ryvk (Simlandi, 2 Pen,) 40 MG/0.4ML Auto-injector Kit INJECT THE CONTENTS OF TWO PENS (80MG) SUBCUTANEOUSLY ONCE WEEKLY Directed. Refrigerate, do not freeze, allow to come to room temp before allopurinol (ZYLOPRIM) 100 mg, Oral, Daily B Complex-C (SUPER B COMPLEX PO) 1 tablet, Daily bisacodyl (Dulcolax) 5 MG EC tablet Take all 4 tablets at 4 PM on day before colonoscopy . Do not crush, chew, or split. busPIRone (Buspar) 5 MG tablet TAKE 1 TABLET BY MOUTH TWICE DAILY MAY CAUSE DROWSINESS cholecalciferol (Vitamin D-3) 5,000 Units tablet 1 tablet, Weekly cholecalciferol (Vitamin D-3) 50 MCG (1999 UT) capsule As needed cholecalciferol (VITAMIN D-3) 50,000 Units, Weekly clindamycin (Cleocin T) 1 % lotion Apply topically as needed. dicyclomine (Bentyl) 10 MG capsule TAKE 1 CAPSULE BY MOUTH FOUR TIMES DAILY IF NEEDED (CRAMPING). doxycycline (VIBRAMYCIN) 100 mg, Daily hydroCHLOROthiazide (HYDRODIURIL) 25 mg, ZZ Daily RT lamoTRIgine (LAMICTAL) 50 mg, ZZ Daily RT Lysine 1000 MG tablet daily. mercaptopurine (PURIXAN) 50 mg, Oral, Daily metFORMIN (Glucophage) 500 MG tablet 1 tablet, Daily with breakfast methocarbamol (Robaxin) 750 MG tablet As needed multivitamin (Theragran-M) tablet 1 tablet, ZZ Daily RT omeprazole (PRILOSEC) 20 mg, ZZ Daily RT sertraline (ZOLOFT) 150 mg, ZZ Daily RT spironolactone (ALDACTONE) 100 mg, Daily tretinoin (Retin-A) 0.025 % cream Apply topically as needed. Scheduled Current Scheduled Medications[3] PRNs Current PRN Medications[4] SURGICAL HX: Surgical History[5] SOCIAL HX: Social History[6] OBJECTIVE DATA LABS Lab Results Component Value Date WBC 14.83 (H) 10/23/2024 HGB 16.3 (H) 10/23/2024 HCT 50.4 (H) 10/23/2024 MCV 99 (H) 10/23/2024 PLT 432 (H) 10/23/2024 Lab Results Component Value Date CALCIUM 10.0 10/23/2024 BUN 9 10/23/2024 CREATININE 0.73 10/23/2024 BCR 12 10/23/2024 NA 139 10/23/2024 K 4.1 10/23/2024 CL 99 10/23/2024 CO2 27 10/23/2024 Type and Screen No results found for: ABO No results found for: HGBA1C Lab Results Component Value Date PGLU 104 (H) 12/24/2024 GLUCOSE 92 10/23/2024 ABG No results found for: PHART , DFT6RZI , PO2ART , SO2ART , BEART , OZT8PII , HCTART , SODIUMART , POTASSIUMART , POCTCL , POCGLU , IONCALART , LACTATE No results found for: PH , PCO2 , PO2 , S9YHOCFS , BASEEXC , HCTSYR , KSYR , CLSYR , GLUSYR , CAION , LACTATE ECHO No echocardiogram results found for the past 12 months PFTs No results found for: MOQ2ZGA , UAH3XHXT , KKX2LXK , FVCPRED BP Readings from Last 5 Encounters: 11/20/24 127/86 10/23/24 115/75 08/21/24 132/79 07/17/24 (!) 137/93 06/18/24 117/84 Physical Exam Airway Mallampati: I Mouth opening: normal TM distance: >3 FB Neck ROM: full Cardiovascular Rhythm: regular Rate: normal Dental - normal exam Pulmonary Breath sounds clear to auscultation Neurological Oriented: normal to time, normal to place and normal to person Skin Musculoskeletal Extremities Anesthesia Plan ASA 3 Plan was reviewed with: attending Anesthesia technique(s) discussed with the patient/family: general Anesthesia plan agreed upon was: general Anesthetic plan and risks discussed with patient. Anesthesia Evaluation [1] Allergies Allergen Reactions Clavulanic Acid Hives Shrimp Extract Anaphylaxis and Hives Sulfa Drugs Swelling and Vomiting Amoxicillin-Pot Clavulanate Hives and Itching Patient has tolerated amoxicillin alone [2] Past Medical History: Diagnosis Date Acute pharyngitis, unspecified Acute pharyngitis Acute sinusitis, unspecified Acute sinusitis Allergic Anemia Anxiety Arthritis Asthma Breast cyst 15 years ago Calcaneal spur, unspecified foot Calcaneal spur Candidiasis of vulva and vagina Vaginal yeast infection Clotting disorder (CMS/HCC) 2006 DVT left leg after a miscarriage [...] embolism History of DVT (deep vein thrombosis) PONV (postoperative nausea and vomiting) Rectal abscess Nataliia-rectal abscess Sinusitis 02/21/2024 Supervision of elderly multigravida, unspecified trimester Antepartum elderly multigravida Supervision of high risk , unspecified, unspecified trimester High-risk supervision Unspecified lump in unspecified breast Lump or mass in breast [3] acetaminophen, 1,000 mg, Oral, Once bupivacaine liposome, 20 mL, Infiltration, Once lactated Ringer's, 10 mL/hr, Intravenous, Once Povidone-Iodine, 1 Application, Nasal, Once scopolamine, 1 patch, Transdermal, Once Insert peripheral IV, , , Once AND Saline lock IV, , , Once AND sodium chloride, 10 mL, Intravenous, q12h AND sodium chloride, 10 mL, Intravenous, PRN [4] PRN medications: lidocaine, Insert peripheral IV AND Saline lock IV AND sodium chlorideAND sodium chloride, Insert peripheral IV AND Saline lock IV AND sodium chloride AND sodium chloride [5] Past Surgical History: Procedure Laterality Date ANAL FISTULOTOMY several repairs ANUS SURGERY 06/18/2024 subcutaneous fistulotomy; incisino and drainage, excision of anal lesion SECTION, LOW TRANSVERSE CHOLECYSTECTOMY DILATION AND CURETTAGE OF UTERUS N/A Dilation And Curettage from [facility] NOSE SURGERY N/A Nose Surgery from [facility] SALPINGECTOMY N/A Oviductal Surgery Bilateral Salpingectomy from [facility] TOTAL HYSTERECTOMY, LAPAROSCOPY N/A Laparoscopy With Total Hysterectomy from [facility] [6] Social History Tobacco Use Smoking status: Former [...] 1-2 times a month Drug use: Never Cosigned by Anselmo Marmolejo MD at 12/24/2024 7:10 AM EDT Associated attestation - Anselmo Marmolejo MD - 12/24/2024 7:10 AM EDT I agree with the findings and care plan documented in the preprocedure evaluation note. documented in this encounter Plan of Treatment Upcoming Encounters Date Type Department Care Team (Late st Contact Info) Description 02/19/2025 10:40 AM EST Office Visit [facility] Medicine Specialties [address] [place] [address] Judit León, DO [address] [place] [address] 02/19/2025 11:30 AM EST Office Visit [facility] General Surgery [address] [place] [address] Ashlee Stephens MD [address] [place] [address] documented as of this encounter Procedures Procedure Name Priority Date/Time Associated Diagnosis Comments PB ANESTHESIA PLACEHOLDER Routine 12/24/2024 7:31 AM EDT KS AN ELECTIVE ENDOTRACHEAL AIRWAY Routine 12/24/2024 7:31 AM EDT documented in this encounter Results * KS AN ELECTIVE ENDOTRACHEAL AIRWAY, PB ANESTHESIA PLACEHOLDER (12/24/2024 7:31 AM EDT) Narrative Elias Cope CRNA - 12/24/2024 7:31 AM EDT Elias Cope CRNA 12/24/2024 7:46 AM Airway Date/Time: 12/24/2024 7:31 AM Reason: elective Airway not difficult General Information and Staff Patient location during procedure: OR LIQUEFACTION AND REGASIFICATION HELPER: Elias Cope CRNA Performed: LIQUEFACTION AND REGASIFICATION HELPER Patient Condition Indications for airway management: anesthesia Patient position: sniffing Final Airway Details Final airway type: endotracheal airway Successful airway: ETT Cuffed: yes Successful intubation technique: direct laryngoscopy Adjuncts used in placement: intubating stylet Endotracheal tube insertion site: oral Blade: Sabino Blade size: #3 ETT size (mm): 7.0 Cormack-Lehane Classification: grade I - full view of glottis Placement verified by: chest auscultation and capnometry Cuff volume (mL): 5 Measured from: lips ETT to lips (cm): 21 Additional Comments Atraumatic. No change to dentition. us Anselmo Marmolejo MD ANESTHESIA ORDERABLES Final Re sult documented in this encounter Visit Diagnoses Not on filedocumented in this encounter Administered Medications Inactive Administered Medications - up to 3 most recent administrations Medication Order MAR Action Action Date Dose Rate Site dexamethasone (Decadron) injection Intravenous, As needed, Starting on Tue12/24/24 at 0738, Until Tue12/24/24 at 0903, Routine, Anesthesia Intraprocedure Given 12/24/2024 7:38 AM EDT 4 mg fentaNYL (Sublimaze) injection Intravenous, As needed, Starting on Tue12/24/24 at 0729, Until Tue12/24/24 at 09, Routine, Anesthesia Intraprocedure Given 12/24/2024 7:29 AM EDT 100 mcg HYDROmorphone PF (Dilaudid) injection Intravenous, As needed, Starting on Tue12/24/24 at 0812, Until Tue12/24/24 at 09, Routine, Anesthesia Intraprocedure Given 12/24/2024 8:12 AM EDT 0.5 mg lactated Ringer's infusion Intravenous, Continuous PRN, Starting on Tue12/24/24 at 0720, Until Tue12/24/24 at 0903, Routine New Bag 12/24/2024 7:20 AM EDT lidocaine PF (Xylocaine) 2 % injection Intravenous, As needed, Starting on Tue12/24/24 at 0729, Until Tue12/24/24 at 09, Routine, Anesthesia Intraprocedure Given 12/24/2024 7:29 AM EDT 80 mg ondansetron (Zofran) injection Intravenous, As needed, Starting on Tue12/24/24 at 0736, Until Tue12/24/24 at 0903, Routine, Anesthesia Intraprocedure Given 12/24/2024 7:36 AM EDT 4 mg propofol (Diprivan) infusion 10 mg/mL Intravenous, Continuous PRN, Starting on Tue12/24/24 at 0744, Until Tue12/24/24 at 0903, Routine New Bag 12/24/2024 7:44 AM EDT 50 mcg/kg/min 29.76 mL/hr propofol (Diprivan) injection Intravenous, As needed, Starting on Tue12/24/24 at 0729, Until Tue12/24/24 at 0903, Routine, Anesthesia Intraprocedure Given 12/24/2024 7:31 AM EDT 50 mg Given 12/24/2024 7:29 AM EDT 150 mg rocuronium (ZeMuron) injection Intravenous, As needed, Starting on Tue12/24/24 at 0729, Until Tue12/24/24 at 0903, Routine, Anesthesia Intraprocedure Given 12/24/2024 7:29 AM EDT 50 mg documented in this encounter Additional Health Concerns Assessment Noted Time PHQ-9 Depression Total Score: 0 10/24/19 12:18 PM EDT A fall risk assessment has been complete d for the patient 10/23/2024 12:18 PM EDT A Body Mass Index follow-up plan has been documented for the patient 11/29/2024 7:33 AM EDT documented as of this encounter Care Teams Application Support Technician Relationship Specialty Start [place] [address] [place] [id number] PCP - General 06/05/24 documented as of this encounter
--- OUTSIDE RECORDS SUMMARY | 2024-12-24 06:30 | XMS_ITS | Encounter Summary ---
Author Organization Healthcare Address [address] [place] [address] Care Team Providers Care Rn Assessment Name Role Phone Josseline Cox Primary Care Provider [phone] Reason for Visit * Auth/Cert (Routine) Specialty Diagnoses / Procedures Referred By Sy de leon Referred To Contact Diagnoses Hidradenitis suppurativa of anus Perianal fistula due to Crohn's disease (CMS/HCC) Hidradenitis suppurativa of anus [L73.2] Perianal fistula due to Crohn's disease (CMS/HCC) [K50.913, K60.30] Procedures ND I&D RECTAL ABSCESS + FISTULECTOMY INCISION AND DRAINAGE, ABSCESS, ISCHIORECTAL OR INTRAMURAL, WITH FISTULECTOMY OR FISTULOTOMY; excision of hidraditis suppurativa Ashlee Stephens MD [address] [address] Phone: tel: fax: [facility] Operating Room [address] [place] [address] Phone: tel: Referral ID Status Reason Start Date Expiration Date Visits Re quested Visits Authorized [id number] 1 1 Encounter Details Date Type Department Care Team (Late st Contact Info) Description 12/24/2024 7:30 AM EDT - 12/24/2024 9:00 AM EDT Surgery [facility] Operating Room [address] [place] [address] Ashlee Stephens MD [address] [id number] INCISION AND DRAINAGE, ABSCESS, ISCHIORECTAL OR INTRAMURAL, WITH FISTULECTOMY OR FISTULOTOMY; excision of hidraditis suppurativa [84953 (CPT )] Surgery Details Date/Time Status Location OR Service Patient Class Case Class Case Type Trauma Case? 12/24/2024 7:30 AM Posted [facility] OR [address] [address] [place] [address] Outpatient Surgery E-Electi ve Panel 1 Procedure LRB Anes Op Region Wound Class Comments INCISION AND DRAINAGE, ABSCESS, ISCHIORECTAL OR INTRAMURAL, WITH FISTULECTOMY OR FISTULOTOMY; excision of hidraditis suppurativa N/A General Anus Class IV/ Dirty or Infected general prone 30 mintues exparel Surgeon Surgeon Role Service Panel Ashlee Stephens MD Primary Colorectal 1 Waqar Calderon MD Resident - Assisting 1 documented in this encounter Social History Tobacco [...] Indicated 12/24/2024 6:00 AM EDT Do steph Boland RN * Question Answer Date of Assessment Author 1. Wish to be (Past 1 Month) No 025 6:00 AM EDT Yojana Boland RN 2. Non-Specific Active Suici jasmine Thoughts (Past 1 Month) No 12/24/2024 6:00 AM EDT Yojaan Boland RN 6. Suicidal Behavior (Lifetime) No 6:00 AM EDT Yojana Boland RN documented as of this encounter Discharge [...] up: You will follow up with Dr. Stephnes in 3 weeks. The clinic will call with an appointment time. Questions: Call the [facility] at [phone] during business hours on weekdays or call [facility]'s after hours at [phone] to speak with a resident director online marketing for Colorectal surgery after 5pm or on [...] 2 11/29/2024 cholecalciferol (Vitamin D-3) 1.25 MG (70553 UT) capsule Take 1 capsule by mouth [...] by mouth daily. 90 tablet 3 10/19/2024 metFORMIN (Glucophage) 500 MG tablet Take 1 [...] daily for 7 days. 7 tablet 12/24/2024 clindamycin (Cleocin T) 1 % lotion Apply [...] - 12/24/2024 9:08 AM EDT Patient: Anita A Hidalgo Anesthesia Type: general Vitals Value Taken [...] EDT Signature only. * Mayo Carrillo - [place] RN - 12/24/2024 9:00 AM EDT Images [...] Room or call the Emergency Department at [phone]. Smoking and its health risks ? Smoking [...] help quitting smoking, call the [employer] Quitline toll free at or ask your doctor for help. Weight Management ? Weighing too much is not good for your health. Being overweight increases your risk of health conditions such as heart problems, high blood pressure, type 2 diabetes, and certain types of cancer. Being overweight can also increase your risk for osteoarthritis ([id number]) (joint disease), sleep apnea (abnormal breathing at [...] risk of health problems. Ask your dietitian, tire builder or doctor about a weight loss goal that is right for you. 03/08 * Op Note - Ashlee Stephens MD - 12/24/2024 7:43 AM EDT Operative Note Date: 12/24/24 Location: [facility] OR Name: Anita Hidalgo, : 1980, Diagnoses: Pre-op Diagnosis Hidradenitis suppurativa of anus Perianal fistula due to Crohn's disease (CMS/HCC) Post-op Diagnosis Hidradenitis suppurativa of anus Perianal fistula due to Crohn's disease (CMS/HCC) Procedure(s): Excision of hidradenitis suppurative of the anus. Incision and drainage of fistula with placement of draining seton Attending Surgeon(s): * Ashlee Stephens - Primary Sprinkler Inspector(s): * Waqar Calderon MD - Resident - [...] * Perianal fistula due to Crohn's disease (CMS/HCC) [K50.913, K60.30] now scheduled for INCISION AND [...] Vivian Arthritis Mother Vivian Heart disease Father Cornell Hypercholesterolemia Father Cornell Arthritis Father Cornell Breast cancer Sister Breast cancer Sister [3] [...] OF UTERUS N/A Dilation And Curettage from [facility] NOSE SURGERY N/A Nose Surgery from [facility] SALPINGECTOMY N/A Oviductal Surgery Bilateral Salpingectomy from [facility] TOTAL HYSTERECTOMY, LAPAROSCOPY N/A Laparoscopy With Total Hysterectomy from [facility] [5] Allergies Allergen Reactions Clavulanic Acid Hives [...] as needed cholecalciferol (Vitamin D-3) 1.25 MG (69628 UT) capsule Hold 7 days before surgery [...] your arrival time Your surgery is at [facility] located at [address] [place] [address] [address] in the parking garage and [...] card, photo ID, along with power of oil change technician, guardianship or advanced directives if applicable Do [...] card, photo ID, along with power of oil change technician, guardianship or advanced directives if applicable Do [...] Description 02/19/2025 10:40 AM EST Office Visit [facility] Medicine Specialties [address] [place] [address] Judit León DO [address] [place] [address] 02/19/2025 11:30 AM EST Office Visit [facility] General Surgery [address] [place] [address] Ashlee Stephens MD [address] [facility] [address] [place] [address] documented as of this encounter Procedures Procedure Name Priority Date/Time Associated Diagnosis Comments SURGICAL PATHOLOGY EXAM Routine 12/24/2024 7:46 AM EDT Hidradenitis suppurativa of anus Perianal fistula due to Crohn's disease ([facility]) ND I&D RECTAL ABSCESS + FISTULECTOMY 12/24/2024 7:08 AM EDT Hidradenitis suppurativa of anus Perianal fistula due to Crohn's disease (CMS/HCC) POCT GLUCOSE METER UNSOLICITED RESULTS Routine 12/24/2024 6:26 AM EDT documented in this encounter Results * Surgical Pathology Exam (12/24/2024 7:46 AM EDT) Case Report Surgical Pathology Case: [id number] Authorizing Provider: Ashlee Stephens MD Collected: 12/24/2024 0812 Ordering Location: [facility] Operating Room Received: 12/24/2024 1045 Pathologist: Fernando Fonseca MD Specimens: A) - Anus, left lateral anal lesion B) - Buttock, Left, left gluteal hidratinitis C) - Anus, left posteror anal lesion D) - Anus, right posterior anal lesion E) - Buttock, Left, left posterior gluteal lesion 1:06 PM EDT [facility] Final Diagnosis A. LEFT [...] OF DYSPLASIA OR MALIGNANCY 1:06 PM EDT [facility] at 1306 EDT Clinical [...] gluteal area with small abscess with pus. 5 1:06 PM EDT [facility] Special and Immunohistochemical Stains IHC: A1-2 P16 Patchy weak staining (interpreted as negative) A1-3 T. Pallidum (Spirochete) Negative All controls show appropriate reactivity. All immunohistochemis try, in situ hybridization, and histochemical tests were developed by and are performed at the [facility], [address] [place] [address]. All tests reported here, except those addressing [...] on decalcified specimens. 5 1:06 PM EDT [facility] Gross Description A. LEFT LATERAL ANAL LESION Received in formalin labeled left lateral anal lesion is a portion of pink-garcia fibrous skin measuring 4.5 x up to 1.5 x up to 1.5 cm. The skin/mucosal surface is undulating and wrinkled but otherwise grossly unremarkable. Resection margin inked blue and labor representative sections are submitted in cassette A1. [...] otherwise grossly unremarkable. Resection margin inked blue labor representative sections are submitted in cassette C1. Cold Time: <1m Bettycheryl Quezada (entirely submitted in cassettes C2-C3 10.2.25 -KP) D. RIGHT POSTERIOR ANAL LESION Received in formalin labeled right posterior anal lesion is a portion of pink-garcia fibrous skin measuring 3.5 x 1.3 x 0.7 cm. The skin/mucosal surface is undulating, wrinkled, and slightly crusted. Resection margin inked blue and labor representative sections are submitted in cassette D1. Cold Time: <1m Bettycheryl Quezada (entirely submitted in cassettes D2-D3 10.2.25 -KP) E. LEFT POSTERIOR GLUTEAL LESION Received in formalin labeled left posterior gluteal lesion is a portion of pink-millan fibrous skin measuring 3.2 x 1.1 x 1.0 cm. The skin surface is bumpy and wrinkled but otherwise grossly unremarkable. Resection margin inked blue and labor representative sections are submitted in cassette E1. Cold Time: <1m Bettycheryl Quezada (entirely submitted in cassettes E2-E4 10.2.25 -KP) 1:06 PM EDT [facility] Intradepartmental Consultation with Agreement Portions of this case were also reviewed by Dr. Casandra Boland, with agreement upon the overall impressions. 1:06 PM EDT [facility] Note: A resident was involved in the service. I attest I examined the relevant preparations for the specimens and confirmed the diagnosis or interpretation. 1:06 PM EDT [facility] Tissue Anal structure / [...] due to Crohn's disease (CMS/HCC) [K50.913, K60.30] us Ashlee Stephens MD LAB PATHOLOGY ORDERABLES Final Result [facility] [address] [place] [address] * (ABNORMAL) POCT glucose meter (12/24/2024 6:26 AM EDT) POCT Glucose 104(H) 74 - 99 mg/dL 12/24/2024 6:28 AM EDT [facility] Comment:Accuracy of a glucos e [...] for testing. Comment 12/24/2024 6:28 AM EDT [facility] Stonecutter Assistant ID Reshma Thornton 12/24/2024 6:28 AM EDT [facility] Device ID [id number] 12/24/2024 6:28 AM EDT [facility] Specimen Type POC Capillary 12/24/2024 6:28 AM EDT [facility] Blood Capillary blood specimen / Unknown 12/24/2024 6:26 AM EDT 12/24/2024 6:28 AM EDT us Ashlee Stephens MD LAB POINT OF CARE TE ST DOCKED DEVICE UNSOLICITED RESULTS Final Result [facility] [address] [place] [address] documented in this encounter Visit Diagnoses Diagnosis Hidradenitis suppurativa of anus Hidradenitis Perianal fistula due to Crohn's disease (CMS/HCC) Hidradenitis suppurativa of anus Hidradenitis Perianal fistula due to Crohn's disease (CMS/HCC) documented in this encounter Admitting Diagnoses Diagnosis Hidradenitis suppurativa of anus Hidradenitis Perianal fistula due to Crohn's disease (CMS/HCC) documented in this encounter Administered Medications Inactive Administered Medications - up to 3 most recent administrations Medication Order MAR Action Action Date Dose Rate Site acetaminophen (Tylenol) tablet 1,000 mg 1,000 mg, Oral, Once, 1 dose, On Tue12/24/24 at 0700, Routine, Holding - Preprocedure Given 12/24/2024 6:48 AM EDT 1,000 mg bupivacaine liposome (Exparel) 1.3 % injection 266 mg 266 mg (20 mL), Infiltration, Once, 1 dose, On Tue12/24/24 at 0700, Routine, Intraprocedure Given 12/24/2024 8:25 AM EDT 20 mL bupivacaine-EPINEPHrin e PF (Marcaine w/EPI) 0.25% -1:249961 injection As needed, Starting on Tue12/24/24 at 0824, Until Tue12/24/24 at 0839, Routine, Intraprocedure Given 12/24/2024 8:24 AM EDT 30 mL Other droperidol (Inapsine) injection 0.625 mg 0.625 mg, [...] 0648 (New Bag - Prov ider: Yojana K Krystian, RN) lactated Ringer's infusion 20 mL/hr, Intravenous, [...] 12/23/2024 12/24/2024 bupivacaine-EPINEPHrine PF (Marcaine w/EPI) 0.25% -1:986755 injection (CANCELED) As needed, Starting on Tue12/24/24 [...] documented as of this encounter Care Teams Rn Assessment Relationship Specialty Start Date End Date Josseline Cox DO [address] [facility] [address] [place] [address] PCP - General 06/05/24 documented as of this encounter
--- OUTSIDE RECORDS SUMMARY | 2025-01-15 07:30 | XMS_ITS | Encounter Summary ---
Author Organization [facility] Address [address] [place] [address] Care Team Providers Care Make Up Operator Name Role Phone Kenny, Josseline Demi BURDEN Primary Care Provider Reason for Referral * Medications - Closed Specialty Diagnoses / Procedures Referred By Contac t Referred To Contact Diagnoses Hidradenitis suppurativa of anogenital region Ashlee Stephens MD [address] [address] Phone: tel: fax: Referral ID Status Reason Start Date Expiration Date Visits Re quested Visits Authorized [id number] Closed 1 1 Reason for Visit * Reason Comments Post-op From Surgery Encounter Details Date Type Department Care Team (Late st Contact Info) Description 01/15/2025 8:30 AM EDT Office Visit [facility] General Surgery [address] [place] [address] Ashlee Stephens MD [address] [facility] [address] [place] [address] Hidradenitis suppurativa of anus (Primary Dx); Hidradenitis suppurativa of anogenital region Social History Tobacco Use Types Packs/Day Years Used Date Smoking Tobacco: Former Cigarettes 1 26 0 03/28/1997 - 03/28/2023 Passive Smoke Exposure: Never Smokeless Tobacco: Never Comments:Light cigarette smo ker (1-9 cigarettes per day) Alcohol Use Standard Drinks/Week Comments Yes 0 (1 standard drink = 0.6 oz pur e alcohol) 1-2 times a month PHQ-2 Answer Date Recorded Patient Health Questionnaire-2 Score 0 01/15/2025 PHQ-9 Answer Date Recorded Patient Health Questionnaire-9 Score 0 01/15/2025 Comments No Sex and Gender Information Value Date Recorded Sex Assigned at Not on file Legal Sex Female 6:18 PM EDT Gender Identity Not on file Sexual Orientation Not on file documented as of this encounter Last Filed Vital Signs Vital Sign Reading Time Taken Comments Blood Pressure 124/69 01/15/2025 8:42 AM EDT Pulse 80 01/15/2025 8:42 AM EDT Temperature 36.6 C (97.8 F) 01/15/2025 8:42 AM EDT Respiratory Rate - - Oxygen Saturation - - Inhaled Oxygen Concentration - - Weight 97.5 kg (215 lb) 01/15/2025 8:42 AM EDT Height 166 cm (5' 5.35 ) 01/15/2025 8:42 AM EDT Body Mass Index 35.39 01/15/2025 8:42 AM EDT documented in this encounter Functional Status * Over the past 2 weeks, how often have you been bothered by any of the following problems? Question Answer Date of Assessment Author Little interest or pleasure in doing things Not at all 01/15/2025 8:44 AM EDT Niko'Oksana Gordillo Feeling down, depressed, or hopeless Not at all 01/15/2025 8:44 AM EDT Oksana Roberts Patient Health Questionnaire -2 Score 0 01/15/2025 8:44 AM EDT Niko'Oksana Gordillo * Question Answer Date of Assessment Author Trouble falling or staying asleep, or sleeping too much Not at all 01/15/2025 8:44 AM EDT Oksana Roberts Feeling tired or having maikel le energy Not at all 01/15/2025 8:44 AM EDT Niko'Oksana Gordillo Poor appetite or overeating Not at all 01/15/2025 8: 44 AM EDT Niko'Oksana Gordillo Feeling bad about yourself - or that you are a failure or have let yourself or your family down Not at all 01/15/2025 8:44 AM EDT Niko'Oksana Celis Trouble concentrating on thi ngs, such as reading the newspaper or watching television Not at all 01/15/2025 8:44 AM EDOksana Cagle Moving or speaking so slowly that other people could have noticed? Or the opposite - being so fidgety or restless that you have been moving around a lot more than usual. Not at all 01/15/2025 8:44 AM Oksana Osborn Thoughts that you would be better off or hurting yourself in some way Not at all 01/15/2025 8:44 AM Oksana Osborn Patient Health Questionnaire -9 Score 0 01/15/2025 8:44 AM Oksana Osborn * How difficult have these problems made it for you to do your work, take care of things at home, or get along with other people? Answer Date of Assessment Author Not difficult at all 01/15/2025 8:44 AM EDT Niko'Oksana Celis documented as of this encounter Miscellaneous Notes * Progress Notes - Amee Crow, GENO, KALLIE - 01/15/2025 8:30 AM EDT Chief Complaint Patient presents with Post-op From Surgery HPI: Ms. Anita Hidalgo is a 45 y.o. female who is recently s/p excision of hidradenitis suppurative of the anus and incision and drainage of fistula with placement of seton on 12/24/24. States that she is well since the procedure. Ms. Hidalgo additionally states that the stitches came out and the wound opened up. She called the clinic to report this and was instructed to do vinegar soaks twice a day, which she has been doing. She said the top wound is healing but she is still having some drainage from the bottom wound. It has improved over the past few days. The seton is in place. She wondered if oregano oil in the sitz bath may help but has tried to take it orally and it caused her to have some GI distress. She is having some constipation but has just started taking her fiber again. She said the valium has helped but would like a refill of her pain medication. Review of Systems Review of Systems A complete 14 point review of systems was done with the patient. These are all negative with the exception of what is noted in the HPI. Visit Vitals BP 124/69 (BP Location: Right arm, Patient Position: Sitting) Pulse 80 Temp 36.6 ??C (97.8 ??F) Ht 1.66 m (5' 5.35 ) Wt 97.5 kg (215 lb) BMI 35.39 kg/m?? Current Scheduled Medications[1] Physical Exam Constitutional: Appearance: Normal appearance. She is obese. HENT: Head: Normocephalic and atraumatic. Mouth/Throat: Mouth: Mucous membranes are moist. Cardiovascular: Rate and Rhythm: Normal rate. Pulmonary: Effort: Pulmonary effort is normal. Abdominal: General: There is no distension. Palpations: Abdomen is soft. Genitourinary: Comments: Seton present to posterior midline fistula Open wound to left lateral glut with pink granulation tissue. Left posterior wound healing. Musculoskeletal: General: Normal range of motion. Skin: General: Skin is warm and dry. Capillary Refill: Capillary refill takes less than 2 seconds. Neurological: General: No focal deficit present. Mental Status: She is alert and oriented to person, place, and time. Psychiatric: Mood and Affect: Mood normal. Behavior: Behavior normal. Assessment & Plan In summary, Ms. Hidalgo is a 45 y.o. female who is recovering well from surgery. At this time our plan includes the following: Continue vinegar soaks twice a day Refill oxy to be taken for severe pain Continue to use valium as needed for spasms. Return in 1 month for wound check [1] Cosigned by Ashlee Stephens MD at 01/24/2025 12:09 PM EDT Associated attestation - Ashlee Stephens MD - 01/24/2025 12:09 PM EDT I attest to being involved in more than half the total time in patient care. documented in this encounter Plan of Treatment Upcoming Encounters Date Type Department Care Team (Late st Contact Info) Description 02/19/2025 10:40 AM EST Office Visit [facility] Medicine Specialties [address] [place] [address] Judit León, [address] [place] [address] 02/19/2025 11:30 AM EST Office Visit [facility] General Surgery [address] [place] [address] Ashlee Stephens MD [address] [place] [address] documented as of this encounter Visit Diagnoses Diagnosis Hidradenitis suppurativa of anus- Primary Hidradenitis Hidradenitis suppurativa of anogenital region documented in this encounter Additional Health Concerns Assessment Noted Time PHQ-9 Depression Total Score: 0 01/16/20 8:44 AM EDT A fall risk assessment has been complete d for the patient 01/15/2025 8:44 AM EDT A Body Mass Index follow-up plan has been documented for the patient 01/24/2025 12:10 PM EDT documented as of this encounter Care Teams Make Up Operator Relationship Specialty Start Date End Date Josseline Cox DO [address] [facility] [address] [place] [address] PCP - General 06/05/24 documented as of this encounter
--- NOTE | 2025-02-07 09:12 | XR_ITS ---
FINAL REPORT CLINICAL HISTORY: right knee pain FINDINGS: RIGHT KNEE Three views were obtained. There is no fracture or dislocation. The joint spaces appear normal. No soft tissue abnormality is identified. IMPRESSION: No acute process. Reviewed, Interpreted and Dictated by Maddie Chandler MD Transcribed by Adelina Mitchell Authenticated and [facility]
--- NOTE | 2025-02-07 09:12 | XR_ITS ---
FINAL REPORT CLINICAL HISTORY: left knee pain FINDINGS: LEFT KNEE Three views were obtained. There is no fracture or dislocation. The joint spaces appear normal. No soft tissue abnormality is identified. IMPRESSION: No acute process. Reviewed, Interpreted and Dictated by Maddie Chandler MD Transcribed by Adelina Mitchell Authenticated and [facility]
--- OUTSIDE RECORDS SUMMARY | 2025-02-07 09:12 | XMS_ITS | Clinical Summary ---
Author Organization [facility] Address [address] [place] [address] Phone Care Team Providers Care Watcher Automat [employer] Name Role Phone System Maintenance Unavailable [phone] Conditions or Problems Problem Name Problem Code Onset Date Status Entry Date Provider Comment Standard Description Annotate Granulomatous lung disease 37539473 (SNOMED CT) 10/06 Active 10/06 Gabriel Sanchez MD Disorder of lung Candidiasis, skin 74732013 (SNOMED CT) 09/29 Active 09/29 Rupali Brunson MD Candidiasis of skin Other obesity due to excess calories 384339061 (SNOMED CT) 09/26 Active 09/26 Krgauri Gilliam Simple obesity Smoker/tobacc o use disorder-smok ing cessation discussed 782178351 (SNOMED CT) 09/26 Active 09/26 Krima Mane Smoking cessation education Actinomycotic infection of other specified sites 95088194 (SNOMED CT) 09/04 Active 09/08 Jessica Mueller Actinomycotic infection Actinomycotic infection 54517539 (SNOMED CT) 09/08 Inactive 09/08 Gabriel Sanchez MD Actinomycotic infection Penicillin allergy 58123264 (SNOMED CT) 09/04 Active 09/04 Gabriel Sanchez MD Allergy to penicillin Group G streptococcus infection 022605077 (SNOMED CT) 09/03 Active 09/03 Anushka Yaya Infection caused by Streptococcus group G Hidradenitis suppurativa 09062973 (SNOMED CT) 09/03 Active 09/03 Anushka Yaya Hidradenitis suppurativa Crohn's disease, large and small intestines 50454873 (SNOMED CT) 09/03 Active 09/03 Anushka Javier Crohn's disease of small and large intestines Benign Essential Hypertension 1870222 (SNOMED CT) 09/03 Active 09/03 Anushka Javier Benign essential hypertension Abscess, perianal 86164037 (SNOMED CT) 09/03 Active 09/03 Anushka Javier Perianal abscess Medications Medication Instructions Start Date Stop Date Generic Name NDC Provider CEFTRIAXONE SODIUM 2 GM SOLR 2 gms IV Q 24 hrs/OPAT 10/13 CEFTRIAXONE SODIUM 65745462762 Reta Sanchez FLUCONAZOLE 200 MG TABS take 1 every Tue, Tue and Tuesday while on antibiotics FLUCONAZOLE 60236009213 Rupali Brunson MD DIFLUCAN 200 MG ORAL TABLET Take 1 tablet by mouth daily FLUCONAZOLE 07235900071 Gabriel Sanchez MD PREDNISONE 10 MG (21) TBPK FOLLOW PACKAGE DIRECTIONS 09/08 PREDNISONE 86506522555 Neo Byrnes CEFTRIAXONE SODIUM 2 GM SOLR 2 gms IV Q 24 hrs/OPAT 10/13 CEFTRIAXONE SODIUM 12867307499 Rupali Miller RN PREDNISONE 10 MG (21) TBPK FOLLOW PACKAGE DIRECTIONS 06/26 PREDNISONE 02991548415 Manish D PROPRANOLOL HCL ER 60 MG [id number] TAKE 1 CAPSULE BY MOUTH DAILY PROPRANOLOL HCL 33180895993 Manish D CYCLOBENZAPRINE HCL 10 MG TABS TAKE 1 TABLET BY MOUTH AT NIGHT NEEDED FOR MUSCLE SPASMS CYCLOBENZAPRINE HCL 80772244807 Manish D AMOXICILLIN 875 MG TABS TAKE 1 TABLET BY MOUTH TWICE DAILY AMOXICILLIN 04236576860 Manish D METRONIDAZOLE 500 MG TABS TAKE 1 TABLET BY MOUTH THREE TIMES DAILY FOR 10 DAYS METRONIDAZOLE 70763701559 Manish D ONDANSETRON HCL 4 MG TABS TAKE 1 TABLET BY MOUTH EVERY 6 HOURS NEEDED ONDANSETRON HCL 97923549477 Manish D OXYCODONE HCL 5 MG TABS TAKE 1 TO 2 TABLETS BY MOUTH EVERY 6 HOURS NEEDED FOR PAIN OXYCODONE HCL 65147052663 Manish D AMOXICILLIN-POT CLAVULANATE 875-125 MG TABS TAKE 1 TABLET BY MOUTH TWICE DAILY AMOXICILLIN-POT CLAVULANATE 01752751288 Manish D FLUTICASONE PROPIONATE 50 MCG/ACT SUSP SPRAY 2 SPRAYS INTO EACH NOSTRIL DAILY FLUTICASONE PROPIONATE 30774972986 Manish D FLUCONAZOLE 150 MG TABS TAKE 1 TABLET BY MOUTH EVERY OTHER DAY FLUCONAZOLE 20783891628 Manish D CIPROFLOXACIN HCL 500 MG TABS TAKE 1 TABLET BY MOUTH TWICE DAILY FOR 10 DAYS CIPROFLOXACIN HCL 10483159512 Manish D Medications Administered No information available. Allergies, Adverse Reactions, Alerts Allergy Name Reaction Description Start Date Severity Statu s Provider SHRIMP Hives, swollen Mild Active Tyle r D SULFA DRUGS swelling, vomiting Moderate Active Manish D Results Date Name Value Unit Range Flag Description Chart Maintenance: Labs BASOPHIL % 0.8 % Basophils/ 100 leukocytes in Blood by Manual count MONOCYTE BF 8.8 % monocytes as percent of body fluid leukocytes LYMPHS % 28.7 % Lymphocytes/ 100 leukocytes in Blood by Automated count Lab Report: MANUAL DIFFERENT IAL BASOABSOLMAN 0.00 10*3/MM3 {Cells}/ uL 0.00-0.2 0 basophils, absolute, manual EOSINPABSMAN 0.00 10*3/MM3 {Cells}/ uL 0.00-0.4 0 eosinophils, absolute, manual MONOCYTABMAN 1.26 10*3/MM3 {Cells}/ uL 0.10-0.9 0 H monocytes, absolute, manual LYMPHSABSMAN 3.27 10*3/MM3 {Cells}/ uL 0.70-3.1 0 H lymphocytes, absolute, manual NEUT CT MANU 8.04 10*3/mm3 1.70-7.0 0 H neutrophil count, blood, manual BASO % MANU 0.0 % 0.0-1.5 basophils as percent of blood leukocytes, manual count EOS % MANU 0.0 % 0.3-6.2 L eosinophil s as percent of blood leukocytes, manual count MONOS % MANU 10.0 % 5.0-12.0 monocyt es as percent of blood leukocytes, manual count LYMPH % MANU 23.0 % 19.6-45. 3 lymphocytes as percent of blood leukocytes, manual count PMN%(MANUAL) 64.0 42.7-76. 0 neutrophils, polymorphonuclear as percent of blood leukocytes, manual count Office Visit: RM. 6 MEDS REVIEW Done Documenta tion of current medications (procedure) SMOK ADVICE yes Smoking c essation education (procedure) DIET NEURORADIOLOGIST Yes - Overweight Dietary manageme nt education, guidance, and counseling (procedure) ORALTOBACUSE Never Tobacco smoking status CIGARET SMKG yes Tobacco smoking status SMOK STATUS Current every day smoker Tobacco smoking status Lab Report: CBC WITH AUTO DI FFERENTIAL [id number] 0.0 /100 WBC 0.0-0.2 GE use only - for [employer] import when terms are not otherwise specified IMMATUREGRAN 0.05 10*3/MM3 0.00-0.0 5 Immature granulocytes [#/volume] in Blood BASO# 0.07 10*3/mm3 0.00-0.2 0 Basophils [#/volume] in Blood EOS ABSLT 0.18 10*3/uL 0.00-0.4 0 Eosinophils [#/volume] in Blood MONOSCT AUTO 0.99 10*3/uL 0.10-0.9 0 H Monocytes [#/volume] in Blood by Automated count LYMPHCT AUTO 2.65 10*3/mm3 0.70-3.1 0 Lymphocytes [#/volume] in Blood by Automated count ABS NEUTROPH 7.61 10*3/uL 1.70-7.0 0 H Neutrophils [#/volume] in Blood IMM GRANU % 0.4 % 0.0-0.5 Immature granulocytes/100 leukocytes in Blood % EOS AUTO 1.6 % 0.3-6.2 Eosinophil s/100 leukocytes in Blood by Automated count MONOCYTE % 8.6 % 5.0-12.0 Monocytes /100 leukocytes in Blood by Automated count LYMPHOCY BF 22.9 % 19.6-45. 3 lymphocytes as percent of body fluid leukocytes NEUTROP BF 65.9 % 42.7-76. 0 Neutrophils/100 leukocytes in Body fluid PLATELETS 332 10*3/mm3 140-450 Platelets [#/volume] in Blood by Automated count RDW_ 13.7 12.3-15. 4 RDW, no units MCHC 33.3 G/DL 31.5-35. 7 MCHC [Mass/volume] by Automated count MCH 30.4 pg 26.6-33. 0 MCH [Entitic mass] by Automated count MCV 91.4 fL 79.0-97. 0 MCV [Entitic volume] by Automated count HCT 46.6 % 34.0-46. 6 Hematocrit [Volume Fraction] of Blood by Automated count HGB 15.5 g/dL 12.0-15. 9 Hemoglobin [Mass/volume] in Blood RBC 5.10 10*6/mm3 3.77-5.2 8 Erythrocytes [#/volume] in Blood by Automated count WBC 11.55 10*3/mm3 3.40-10. 80 H Leukocytes [#/volume] in Blood by Automated count Lab Report: SEDIMENTATION RA TE ESR 38 mm/h 0-20 H Erythrocyte sedimentation rate by Westergren method Lab Report: COMPREHENSIVE ME TABOLIC PANEL ANIONGAP 10.0 mmol/L 5.0-15.0 anion gap, serum BUN/CREAT 15.1 7.0-25.0 Urea nitrogen/Creatinine [Mass Ratio] in Serum or Plasma GFRC 128 mL/min/1 .73m2 >60 Glomerular Filtration Rate Calculation BILI TOTAL 0.3 mg/dL 0.0-1.2 Bilirubin. total [Mass/volume] in Serum or Plasma ALK PHOS 75 U/L 39-117 Alkaline gretta sphatase [Enzymatic activity/volume] in Blood SGOT (AST) 16 U/L 1-32 Aspartate aminotransferase [Enzymatic activity/volume] in Serum or Plasma SGPT (ALT) 14 U/L 1-33 Alanine aminotransferase [Enzymatic activity/volume] in Serum or Plasma ALBUMIN 4.10 g/dL 3.50-5.2 0 Albumin [Mass/volume] in Serum or Plasma PROTEIN, TOT 8.3 g/dL 6.0-8.5 Protein [Mass/volume] in Serum or Plasma CALCIUM 9.6 mg/dL 8.6-10.5 Calcium [Moles/volume] in Serum or Plasma CO2 25.0 mmol/L 22.0-29. 0 Carbon dioxide, total [Moles/volume] in Venous blood CHLORIDE 102 mmol/L 98-107 Chloride [Moles/volume] in Serum or Plasma POTASSIUM 3.8 mmol/L 3.5-5.2 Potassium [Moles/volume] in Serum or Plasma SODIUM 137 mmol/L 136-145 Sodium [Moles/volume] in Serum or Plasma CREATININE 0.53 mg/dL 0.57-1.0 0 L Creatinine [Mass/volume] in Serum or Plasma BUN 8 mg/dL 6-20 Urea nitrogen [Mass/volume] in Serum or Plasma GLUCOSE SER 101 mg/dL 65-99 H Glucose [Mass/volume] in Serum or Plasma Lab Report: C-REACTIVE PROTE IN CRP 4.13 mg/dL 0.00-0.5 0 H C reactive protein [Mass/volume] in Serum or Plasma Plan of Care Type Date Detail Pending order CMP Pending order CBC w/o Differen tial Pending order Sedimentation Ra te (ESR) Pending order Continue IV anti biotics Pending order Weekly PICC Line Care Pending order Weekly Labs (Con tinue) Pending order CMP Pending order CBC w/o Differen tial Pending order Sedimentation Ra te (ESR) Pending order Continue IV anti biotics Pending order Weekly PICC Line Care Pending order CMP Pending order CBC w/o Differen tial Pending order Sedimentation Ra te (ESR) Pending order C- reactive prot ein Pending order Stat Weekly Labs Pending order Continue IV anti biotics Pending order CMP Pending order CBC w/o Differen tial Pending order Sedimentation Ra te (ESR) Pending order C- reactive prot ein Pending order Continue IV anti biotics Pending order PICC Line Insert ion Pending order CMP Pending order CBC w/o Differen tial Procedures Code Procedure Name Date Entry Date CPT-96766 CMP CPT-90772 CBC w/o Differential CPT-07500 Sedimentation Rate (ESR) 04/03/11 CPT-ca Continue IV antibiotics 2020 CPT-wpc Weekly PICC Line Care 09/22 CPT-cwl Weekly Labs (Continue) 09/22 CPT-72154 CMP CPT-99603 CBC w/o Differential CPT-34395 Sedimentation Rate (ESR) 202 04/02/27 CPT-ca Continue IV antibiotics 2020 CPT-wpc Weekly PICC Line Care 09/15 CPT-10998 CMP CPT-91833 CBC w/o Differential CPT-75482 Sedimentation Rate (ESR) 202 04/02/20 CPT-68280 C- reactive protein CPT- stat weekly Stat Weekly Labs CPT-ca Continue IV antibiotics 2020 CPT-02745 CMP CPT-25808 CBC w/o Differential CPT-61583 Sedimentation Rate (ESR) 202 04/02/13 CPT-30383 C- reactive protein CPT-ca Continue IV antibiotics 2020 CPT-03529 PICC Line Insertion CPT-07528 CMP CPT-04565 CBC w/o Differential Vital Signs Date Name Value Unit Description BMI (Body Mass Index) 38.57 kg/m2 Bod y Mass Index (Ratio) Body Temperature 97.3 [degF] temperat ure E&M BP Diastolic 96 mm[Hg] blood pressu re, diastolic BP Systolic 142 mm[Hg] blood pressur e, systolic Heart Rate 80 /min pulse rate Respiratory Rate 16 /min respirat ory rate E&M Weight Measured 239 [lb_av] weight E& M Weight Measured 239 [lb_av] weight E& M Height 66 [in_us] height E&M Immunizations No information available. Advance Directives Directive Description Start Date NO LIVING WILL ON FILE
--- OUTSIDE RECORDS SUMMARY | 2025-02-07 09:12 | XMS_ITS | Encounter Summary ---
Author Organization [facility] Address [address] [place] [address] Care Team Providers Care Imcu Specialist Name Role Phone Josseline Cox DO Primary Care Provider [phone] Reason for Visit * Reason Comments Med Refill Encounter Details Date Type Department Care Team (Late st Contact Info) Description 03/07/2020 Refill [facility] [address] [facility] [place] [address] Kriss Ardon, IT DISASTER RECOVERY MANAGER [address] [place] [address] Essential hypertension Social History Tobacco Use Types Packs/Day Years Used Date Smoking Tobacco: Former Cigarettes Q uit: 10/26/2016 Smokeless Tobacco: Never Alcohol Use Standard Drinks/Week Comments Yes 0 (1 standard drink = 0.6 oz pur e alcohol) occasionally Comments Unknown Sex and Gender Information Value Date Recorded Sex Assigned at Female 12/05/2024 12:14 PM EDT Legal Sex Female 4:20 PM EDT Gender Identity Not on file Sexual Orientation Not on file documented as of this encounter Plan of Treatment Not on file documented as of this encounter Visit Diagnoses Diagnosis Essential hypertension Unspecified essential hypertension documented in this encounter Additional Health Concerns Infection Onset Date Last Indicated Resolved Time COVID (confirmed) 02/14/2024 02/14/2024 05/14/2024 9:08 PM EST documented as of this encounter Care Teams Imcu Specialist Relationship Specialty Start Date End Date Josseline Cox DO [address] [place] [address] PCP - General Family Medicine 04/30/21 documented as of this encounter
--- OUTSIDE RECORDS SUMMARY | 2025-02-07 09:12 | XMS_ITS | Encounter Summary ---
Author Organization [facility] Address [address] [place] [address] Care Team Providers Care Character Actor Name Role Phone Josseline Cox DO Primary Care Provider [phone] Reason for Visit * Reason Onset Date Comments Med Refill 07/10/2020 Encounter Details Date Type Department Care Team (Late st Contact Info) Description 07/10/2020 Refill [facility] [address] [place] [address] Kriss Ardon, CORN POPPER [address] [place] [address] Essential hypertension Social History Tobacco [...] documented as of this encounter Care Teams Character Actor Relationship Specialty Start Date End Date Josseline Cox DO [address] [place] [address] PCP - General Family Medicine 04/30/21 documented as of this encounter
--- OUTSIDE RECORDS SUMMARY | 2025-02-07 09:12 | XMS_ITS | Encounter Summary ---
Author Organization [facility] Address [address] [place] [address] Care Team Providers Care Top Case Assembler Name Role Phone KennyJosseline rico Gail BURDEN Primary Care Provider [phone] Encounter Details Date Type Department Care Team (Latest Contact Info) Description 12/12/2024 Travel Social History Tobacco Use Types Packs/Day Years Used Date Smoking Tobacco: Former Cigarettes 0.5 16.1 S tarted: 03/28/2023 Smokeless Tobacco: Never Alcohol Use Standard Drinks/Week Comments Yes 0 (1 standard drink = 0.6 oz pur e alcohol) occasionally PHQ-2 Answer Date Recorded Retired PHQ-9: Brief Depression Severity Measure Score 8 07/02/2022 PHQ-2 Answer Date Recorded Patient Health Questionnaire-9 Score 14 12/12/2024 Comments No Sex and Gender Information Value Date Recorded Sex Assigned at Female 12/05/2024 12:14 PM EDT Legal Sex Female 4:20 PM EDT Gender Identity Not on file Sexual Orientation Not on file documented as of this encounter Functional Status * Over the past 2 weeks, how often have you been bothered by any of the following problems? Question Answer Date of Assessment Author Patient Health Questionnaire -2 Score 2 12/12/2024 10:00 AM EDT Gerard Zapata A PRJose * Question Answer Date of Assessment Author Little interest or pleasure in doing things Several days 12/12/2024 10:00 AM GREGT Gerard Zapata APRN Feeling down, depressed, or hopeless Several days 12/12/2024 10:00 AM EDT Gerard Zapata APRN Trouble falling or staying asleep, or sleeping too much More than half the days 12/12/2024 10:00 AM Gerard Collins APRN Feeling tired or having little energy More than half the days 12/12/2024 10:00 AM Gerard Collins APRN Poor appetite or overeating More than half the days 12/12/2024 10:00 AM Gerard Collins APRN Feeling bad about yourself - or that you are a failure or have let yourself or your family down Nearly every day 12/12/2024 10:00 AM Gerard Collins APRN Trouble concentrating on things, such as reading the newspaper or watching television More than half the days 12/12/2024 10:00 AM Gerard Collins APRN Moving or speaking so slowly that other people could have noticed? Or the opposite - being so fidgety or restless that you have been moving around a lot more than usual. Several days 12/12/2024 10:00 AM Gerard Collins APRN Thoughts that you would be better off or hurting yourself in some way Not at all 12/12/2024 10:00 AM Gerard Collins APRN Patient Health Questionnaire-9 Score 14 12/12/2024 10:00 AM Gerard Collins APRN How difficult have these problems made it for you to do your work, take care of things at home, or get along with other people? Somewhat difficult 12/12/2024 10:00 AM Gerard Collins APRN documented as of this encounter Plan of Treatment Not on file documented as of this encounter Visit Diagnoses Not on filedocumented in this encounter Care Teams Top Case Assembler Relationship Specialty Start Date End Date Josseline Cox [place] [address] PCP - General Family Medicine 04/30/21 documented as of this encounter
--- OUTSIDE RECORDS SUMMARY | 2025-02-07 09:12 | XMS_ITS | Clinical Summary ---
Author Organization [facility] Address [address] [place] [id number] Care Team Providers Care Manager Architectural Name Role Phone Josseline Cox DO Primary Care Provider Allergies Active Allergy Reactions Criticality Noted Date Comments Amoxicillin Hives High 08/25/2023 Amoxicillin-Pot Clavulanate Hives Low 06/25/2021 Also gets itchy throat Clavulanic Acid Hives High 09/30/2022 Shrimp Hives High 09/30/2022 Shrimp Extract Anaphylaxis,Hives High 11/24/2023 Sulfa Antibiotics Swelling,GI Intolerance Low 12/10/2016 Medications * This document contains information received from the source organization and may not represent a complete record from that organization. mercaptopurine (PURINETHOL) 50 MG chemo tablet Take by mouth Daily. Active Multiple Vitamins-Minerals (MULTIVITAMIN WITH MINERALS) tablet tablet Take 1 tablet by mouth Daily. Active Cholecalciferol (VITAMIN D-3) 5000 units tablet Take by mouth. Active L-LYSINE PO Take by mouth. Active fluticasone (FLONASE) 50 MCG/ACT nasal sprayIndications: Seasonal allergies SPRAY 2 SPRAYS INTO EACH NOSTRIL DAILY 16 g 1 1 Active doxycycline (VIBRAMYCIN) 100 MG capsule Take 1 capsule by mouth 2 (Two) Times a Day. 2 Active spironolactone (ALDACTONE) 100 MG tablet Take 1 tablet by mouth Daily. 2 Active busPIRone (BUSPAR) 5 MG tablet Take 1 tablet by mouth Every Night. 3 Active omeprazole (priLOSEC) 20 MG capsule Take 1 capsule by mouth Every Morning. 4 Active tretinoin (RETIN-A) 0.025 % cream 4 Active ondansetron (ZOFRAN) 4 MG tablet Take 1 tablet by mouth Every 6 (Six) Hours As Needed. Active metFORMIN (GLUCOPHAGE) 500 MG tablet Take 1 tablet by mouth Daily With Breakfast. 4 Active sertraline (ZOLOFT) 100 MG tabletIndications :Anxiety TAKE 1 & 1/2 TABLETS BY MOUTH ONCE DAILY 135 tablet 2 5 Active hydroCHLOROthiazi de 25 MG tabletIndications :Essential hypertension TAKE 1 TABLET BY MOUTH ONCE DAILY 90 tablet 5 Active lamoTRIgine (LaMICtal) 25 MG tabletIndications :Anxiety,Mild episode of recurrent major depressive disorder,Mood disorder TAKE 2 TABLETS BY MOUTH ONCE DAILY 180 tablet 5 Active Active Problems Problem Noted Date Diagnosed Date Hidradenitis suppurativa of anus 06/05/2024 Perianal fistula due to Crohn's disease 06/06/19 25 Arthralgia of multiple sites 11/25/2023 Assessment & Plan (11/25/2023 2:42 PM EDT): Patient with Crohn's disease since age 25 on Stelara(2022), 6-mercaptopur[address] Dr. Mills GI Previous Humira stopped 2022 after insurance stopped paying for, infliximab (ineffective) Lab 11/24/2023: White blood cell count 19,000, hemoglobin 16.6, platelets 400,000, CRP 6.4, vitamin D 43, B12 655, normal LFTs, normal creatinine Labs 08/15/2023: +CHENCHO 1:80 speckled pattern, negative rheumatoid factor, negative MEDICAL LABORATORY MANAGER antibody, negative Wallace antibody, negative Sjogren's antibodies, negative Genevieve 1 antibody, negative anticentromere body, negative antichromatin antibody, negative double-stranded DNA, negative Genevieve 1 , negative SCL 70, normal sed rate, normal TSH Patient sent in consultation from her PCP for weakly positive CHENCHO 1:80 titer with completely negative BECKA panel in the setting of Crohn's disease with psoriasis. Most likely her weakly positive CHENCHO with negative BECKA panel is related to her Crohn's disease and psoriasis. CHENCHO positive 11/25/2023 Assessment & Plan (11/25/2023 2:42 PM EDT): -Suspect weakly positive CHENCHO 1:80 titer with negative BECKA panel related to her underlying Crohn's disease versus psoriasis There are no clinical features of rheumatoid arthritis, scleroderma, vasculitis, lupus or connective tissue disease. No Raynaud's, no malar rash, no oral/nasal ulcers, no pleurisy/pericarditis, no seizure disorder, no renal or hematologic abnormality. No clotting disorder. No photosensitivity. An CHENCHO test is a nonspecific test. While it certainly can be positive in conditions like SLE, scleroderma, myositis, Sjogren's, RA, vasculitis, etc., it can also be positive in patients with thyroid disease, type 1 diabetes, psoriasis, celiac disease, inflammatory bowel disease, COPD/chronic lung disease, cancers etc. There are also reports of normal/apparently healthy individuals who are incidentally found to have a positive CHENCHO test. You can also frequently get a false positive CHENCHO test. Positive CHNECHO results increased with age. 15% of patients over the age of 65 are CHENCHO positive, along with 5% of the general population. High risk medication use 11/25/2023 Assessment & Plan (11/25/2023 2:42 PM EDT): Omaira Koroma QuantiFERON and hepatitis panel checked 11/25/2023 We discussed biologic agents at length. Risks and alternative were discussed at length and the option of no treatment was also given. We discussed risks including but not limited to infections which can be unusual, severe, and deadly. When possible, these agents should be stopped immediately if infections occur. Unusual infection such as TB and fungal infections can occur. There may be an increased risk of lymphoma with these agents. Other risks can include are multiple sclerosis like illness and worsening of the failure. Infusion or injection reactions whish can be delay have been reported. Reactivation of daily brain virus hepatitis viruses have been reported. Worsening of COPD has been seen with Orencia. Elevated lipids, elevations in liver functions, and dangerous changes in blood counts have been seen with certain agents. Regular monitoring will be required. Immunosuppression due to drug therapy 11/25/2023 Psoriatic arthritis of multiple joints Assessment & Plan (11/25/2023 2:42 PM EDT): + Psoriasis Possible psoriatic arthritis versus inflammatory bowel disease related inflammatory arthritis Doing poorly clinically with widespread musculoskeletal pain, deep fatigue, elevated inflammatory markers -Avoids NSAIDs with her inflammatory bowel disease -Stelara prescribed to GI for inflammatory bowel disease reportedly helpful overall to the patient but not controlling her joint pain, hidradenitis and possibly even her Crohn's. -Check further labs today as below -Will avoid addition of methotrexate with her underlying fatty liver -I think it reasonable to consider adding a second biologic agent to her Stelara as mentioned by Dr. Mills in her notes -There are many successful case reports of combining Biologics with different mechanism of action to control refractory disease in inflammatory bowel disease -Recommend addition of a second biologic agent to her Stelara with a different mechanism of action such as Cimzia which can help psoriatic arthritis, Crohn's, hidradenitis. Patient reports good results with prior anti-TNF therapy Humira which was discontinued 2022 apparently after her insurance would not pay for it any longer. -Will try to get another anti-TNF therapy approved for her Cimzia. She would prefer self injection. -Screen for hepatitis and tuberculosis Return to clinic 3 months Other fatigue 11/25/2023 Assessment & Plan (11/25/2023 2:42 PM EDT): TIME SPENT: I spent 60 minutes caring for the patient on this date of service. This time includes time spent by me in the following activities: Preparing for the visit, obtaining records, reviewing/ordering tests and independently reviewing results, performing a medically appropriate history/exam, counseling and educating the patient/family/caregiver, ordering medications, tests, or procedures, and documenting information in the medical record. Psoriasis 11/25/2023 Assessment & Plan (11/25/2023 2:42 PM EDT): -Mild psoriasis -Treated with topical steroids Leukocytosis 11/25/2023 Assessment & Plan (11/25/2023 2:42 PM EDT): -Previously saw hematology. They attributed modest chronic leukocytosis to inflammation Elevated C-reactive protein (CRP) 11/25/2023 Assessment & Plan (11/25/2023 2:42 PM EDT): Nonspecific finding of inflammation in the body Fatty liver 11/25/2023 Assessment & Plan (11/25/2023 2:42 PM EDT): -Seen on ultrasound -Discussed weight loss and Mediterranean diet Pelvic pain 10/27/2023 Left ovarian cyst 10/27/2023 Hidradenitis 12/25/2021 Assessment & Plan (11/25/2023 2:42 PM EDT): On metformin, spironolactone, doxycycline -Active axilla Arthritis of right knee 12/25/2021 Nodule of upper lobe of right lung 10/14/2020 Overview (10/14/2020): 6 mm right upper lobe found on CT of chest, needs repeat CT chest in 6 months to follow up Crohn's disease 06/12/2019 Assessment & Plan (11/25/2023 2:42 PM EDT): 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 GI Dr. Kriss Mills establish 2023; colorectal surgery Dr. Blankenship; [facility] inflammatory bowel specialist Judit León Prior Humira for over [address] Westbrook, prior infliximab Current: Stelara started 2022 per GI, 6-mercaptopurine She has had Crohn's disease since age 25. Has had fistula on and off for the last 8 years since . Difficult to control disease historically -Patient awaiting referral inflammatory bowel specialist at [facility] by GI Dr. Mills for question of 2 agents for IBD -Upcoming colonoscopy to assess status of her Crohn's disease with GI Dr. Mills -Patient reports she feels Stelara is overall beneficial for her disease but not as good as Humira once was. She feels her Crohn's is still active. -Crohn's is a systemic disease and an cause a inflammatory arthritis Anxiety 10/14/2018 Essential hypertension 10/13/2018 Neck pain on left side 10/13/2018 Encounters * This document contains information received from the source organization and may not represent a complete record from that organization. Date Type Department Care Team Description 12/12/2024 Travel 11/29/2024 Refill [facility] [address] [place] [id number] Josseline Cox, Anxiety; Mild episode of recurrent major depressive disorder; Mood disorder from Last 3 Months Immunizations Immunization Administration Dates Next Due COVID-19 (MODERNA) 1st,2nd,3rd Dose Monovalent 0 06/25/2020 COVID-19 (MODERNA) Monovalent Original Booster 0 07/23/2020,06/25/2020 Fluzone >6mos 01/24/2024 Fluzone (or Fluarix & Flulaval for VFC) >6mos ,01/31/2015 Influenza, Unspecified 01/12/2018 flucelvax quad pfs =>4 YRS 01/12/2018 Family History Medical History Relation Name Comments Alcohol abuse Father [place] Arthritis Father [place] Atrial fibrillation Father [place] Colon polyps Father [place] Hyperlipidemia Father [place] Hypertension Father [place] Paget's disease of bone Father [place] Anxiety disorder Mother Vivian Arthritis Mother Vivian Asthma Mother Vivian Atrial fibrillation Mother Vivian Breast cancer Mother Vivian Cancer Mother Vivian Heart failure Mother Vivian Hyperlipidemia Mother Vivian Cancer Paternal Grandmother Stadie ovarian Breast cancer Sister 1 Trini Colon polyps Sister 1 Trini Crohn's disease Sister 1 Trini Inflammatory bowel disease Sister 1 Trini Irritable bowel syndrome Sister 1 Trini Cancer Sister 2 Yanna BRCA1 Negative Neg Hx BRCA2 Negative Neg Hx Colon cancer Neg Hx Esophageal cancer Neg Hx Relation Name Status Comments Father [place] Alive Mother Vivian Alive Paternal Grandmother Stadie Sister 1 Trini Sister 2 Yanna Alive Social History Tobacco Use Types Packs/Day Years Used Date Smoking Tobacco: Former Cigarettes 0.5 16.1 S tarted: 03/28/2023 Smokeless Tobacco: Never Tobacco Cessation:Counseling Given: Not Answered Alcohol Use Standard Drinks/Week Comments Yes 0 [...] on file Sexual Orientation Not on file Last Filed Vital Signs Vital Sign Reading Time Taken Comments Blood Pressure 165/90 12/12/2024 9:54 AM EDT Pulse 82 04/25/2024 10:48 AM EST Temperature 36.6 C (97.8 F) 04/25/2024 10:48 AM EST Respiratory Rate 20 04/25/2024 10:48 AM EST Oxygen Saturation 99% 04/25/2024 10:48 AM EST Inhaled Oxygen Concentration - - Weight 98.4 kg (217 lb) 12/12/2024 9:54 AM EDT Height 165.1 cm (5' 5 ) 12/12/2024 9:54 AM EDT Body Mass Index 36.11 12/12/2024 9:54 AM EDT Plan of Treatment Health Maintenance Due Date Last Done Comments Annual Gynecologic Pelvic an d Breast Exam 1980 Pneumococcal Vaccine 0-49 (1 of 2 - PCV) 01/01/1999 TDAP/TD VACCINES (1 - Tdap) 01/01/1999 ANNUAL PHYSICAL 12/10/2016 INFLUENZA VACCINE 10/26/2024 01/24/2024, , 01/12/2018, Additional history exists COLOGUARD 01/01/2025 COLON CANCER SCREENING 5 YEA R SIGMOIDOSCOPY 01/01/2025 CT COLONOGRAPHY 01/01/2025 FECAL OCCULT BLOOD TEST 01/01/2025 FIT Testing (1 year) 01/01/2025 MAMMOGRAM 09/06/2026 09/06/2024, 01/26, 01/29/2022 COLONOSCOPY 10/19/2034 10/19/2024, 09/26, 12/01/2023, Additional history exists COLORECTAL CANCER SCREENING 10/19/2034 HEPATITIS C SCREENING Completed 11/25/2023 , 08/19/2020, 01/16/2015 Procedures Procedure Name Priority Date/Time Associated Diagnosis Comments SCANNED - COLONOSCOPY 12/01/2023 HEPATITIS PANEL, ACUTE Routine 11/25/2023 12:15 PM EDT Arthralgia of multiple sites CHENCHO positive Crohn's disease with complication, unspecified gastrointestinal tract location High risk medication use Other fatigue SCANNED - MAMMO 02/07/2023 SCANNED - INFLUENZA 01/12/2018 from Last 3 Months or Most Recently Relevant to Health Maintenance Results * Colonoscopy, Scan (12/01/2023) Kriss Mills MD CHART REVIEW TABS Final Resul t * Hepatitis Panel, Acute (11/25/2023 12:15 PM EDT) Hepatitis B Surface Ag Non-Reacti ve Non-Reacti ve 11/25/2023 11:55 PM EDT [facility] Hep A IgM Non-Reacti ve Non-Reacti ve 11/25/2023 11:55 PM EDT [facility] Hep B C IgM Non-Reacti ve Non-Reacti ve 11/25/2023 11:55 PM EDT [facility] Hepatitis C Ab Non-Reacti ve Non-Reacti ve 11/25/2023 11:55 PM EDT [facility] Blood Venipuncture / Unknown 11/25/2023 12:15 PM EDT 11/25/2023 12:15 PM EDT Narrative [facility] - 11/25/2023 11:55 PM EDT Results may be falsely decreased if patient taking Biotin. Eitan Lynn MD LAB BLOOD ORDERABLES Final Result [facility]
[address] [place] [address], [place] [phone] * SCANNED - MAMMO (02/07/2023) Anatomical Region Laterality Modality Other Josseline Cox DO CHART REVIEW TABS Final Result * SCANNED - INFLUENZA (01/12/2018) Kriss Ardon APRN CHART REVIEW TABS Final Resul t from Last 3 Months or Most Recently Relevant to Health Maintenance Insurance [facility] PPO Member Subscriber Plan / Payer (Ef fective 2021-Present) Name:Anita Hidalgo Relation to Subscriber:Self Name:Anita Hidalgo Payer ID:[id number] (NAIC) Type:Not on file Address: [facility] [id number] [place] [id number] Care Teams Manager Architectural Relationship Specialty Start Date End Date Josseline Cox DO [address] [address] PCP - General Family Medicine 04/30/21
--- OUTSIDE RECORDS SUMMARY | 2025-02-07 09:12 | XMS_ITS | Encounter Summary ---
Author Organization Healthcare Address [address] [place] [address] Care Team Providers Care Form Setter/Driver Name Role Phone Josseline Cox Primary Care Provider [phone] Encounter Details Date Type Department Care Team (Late st Contact Info) Description 10/19/2024 Lab Requisition [facility] [address] [place] [address] Judit León DO [address] [place] [address] Crohn's disease, unspecified, without complications (CMS/HCC) Social History Tobacco Use Types Packs/Day Years Used Date Smoking Tobacco: Former Cigarettes 1 26 1 998 - 03/28/2023 Passive Smoke Exposure: Never Smokeless [...] as of this encounter Plan of Treatment Upcoming Encounters Date Type Department Care Team (Late Contact Info) Description 02/19/2025 10:40 AM EST Office Visit [facility] [address] [place] [id number] Judit León DO [address] [place] [id number] 02/19/2025 11:30 AM EST Office Visit [facility] General Surgery [address] [place] [address] Ashlee Stephens MD [address] [place] [address] documented as of this encounter Procedures Procedure Name Priority Date/Time Associated Diagnosis Comments SURGICAL PATHOLOGY EXAM Routine 10/19/2024 Crohn's disease, unspecified, without complications (CMS/[facility]) documented in this encounter Results * Surgical Pathology Exam (10/19/2024) Case Report Surgical Pathology Case: [id number] Authorizing Provider: Judit León DO Collected: 10/19/2024 Ordering Location: [facility] Lab Received: 10/19/2024 1421 Pathologist: Casandra Boland MD Specimens: A) - Colon, Right, right colon biopsy B) - Descending Colon, descending colon biopsy C) - Sigmoid Colon, sigmoid biopsy 10/22/2024 9:03 AM EDT [facility] Final Diagnosis A. LARGE INTESTINE, RIGHT COLON, BIOPSY: - FOCAL AREAS OF MILDLY ACTIVE DISEASE (HISTORY OF CROHN'S DISEASE). - NEGATIVE FOR DYSPLASIA. B. LARGE INTESTINE, DESCENDING COLON, BIOPSY: - AREAS OF MILDLY ACTIVE DISEASE. - NEGATIVE FOR DYSPLASIA. C. LARGE INTESTINE, SIGMOID COLON, BIOPSY: - AREAS OF MILDLY ACTIVE DISEASE. - NEGATIVE FOR DYSPLASIA. 10/22/2024 9:03 AM EDT [facility] at 0903 EDT Clinical Information Crohn's disease, unspecified, without complications Assess therapeutic response to therapy of Crohn's disease of the colon Disease activity assessment of Crohn's disease of the colon Follow-up of Crohn's disease of the colon The terminal ileum appeared normal. The Simple Endoscopic Score for Crohn's Disease was determined based on the endoscopic appearance of the mucosa in the following segments: -Ileum: Findings include no ulcers present, no ulcerated surfaces, no affected surfaces and no narrowings. Segment score: 0. -Right Colon: Findings include no ulcers present, no ulcerated surfaces, no affected surfaces and no narrowings. Segment score: 0. -Transverse Colon: Findings include no ulcers present, no ulcerated surfaces, no affected surfaces and no narrowings. Segment score: 0. -Left Colon: Findings include less than 50% of surfaces affected, aphthous ulcers less than 0.5 cm in size, less than 10% ulcerated surfaces and no narrowings. Segment score: 3. -Rectum: Findings include aphthous ulcers less than 0.5 cm in size, less than 50% of surfaces affected, less than 10% ulcerated surfaces and no narrowings. Segment score: 3. -Total SES-CD aggregate score: 6. 10/22/2024 9:03 AM EDT [facility] Gross Description A. RIGHT COLON BIOPSY Received in formalin labeled right colon biopsy are 3 millan-brown soft tissue fragments measuring 0.3 cm in greatest dimension each. Entirely submitted in cassette A1. Cold Time: 0 Astrid M Leigh B. DESCENDING COLON BIOPSY Received in formalin labeled descending colon biopsy are 3 millan-brown soft tissue fragments measuring 0.2-0.4 cm in greatest dimension. Entirely submitted in cassette B1. Cold Time: 0 Astrid M Leigh C. SIGMOID BIOPSY Received in formalin labeled sigmoid biopsy are 5 millan-brown soft tissue fragments measuring 0.2-0.6 cm in greatest dimension. Entirely submitted in cassette C1. Cold Time: 0 Astrid M Leigh 10/22/2024 9:03 AM EDT [facility] Note: A resident was involved in the service. I attest I examined the relevant preparations for the specimens and confirmed the diagnosis or interpretation. 10/22/2024 9:03 AM EDT [facility] Tissue Sigmoid colon structure / Unknown 10/19/2024 10/19/2024 2:21 PM EDT Tissue specimen (specimen) Descending colon structure / Unknown 10/19/2024 10/19/2024 2:21 PM EDT Tissue specimen (specimen) Sigmoid colon structure / Unknown 10/19/2024 10/19/2024 2:21 PM EDT us Judit León DO LAB PATHOLOGY ORDERABLES Fin al Result [facility] [address] [place] [address] documented in this encounter Visit Diagnoses Diagnosis Crohn's disease, unspecified, without complications (CMS/HCC) documented in this encounter Additional Health Concerns Assessment Noted Time PHQ-9 Depression Total Score: 0 07/18/19 11:04 AM EDT A fall risk assessment has been complete d for the patient 07/17/2024 11:11 AM EDT A Body Mass Index follow-up plan has been documented for the patient 08/27/2024 2:02 PM EDT documented as of this encounter Care Teams Form Setter/Driver Relationship Specialty Start Date End Date Josseline Cox DO [address] [place], [place] [id number] PCP - General 06/05/24 documented as of this encounter
--- OUTSIDE RECORDS SUMMARY | 2025-02-07 09:12 | XMS_ITS | Encounter Summary ---
Author Organization Healthcare Address [address] [place] [address] Care Team Providers Care Alcohol Law Enforcement Agent Name Role Phone Pcp, No Primary Care Provider Opal e Josseline Cox DO Primary Care Provider [phone] Encounter Details Date Type Department Care Team (Late st Contact Info) Description 01/29/2022 Orders Only External Location [address] [place] [address] Josseline Cox DO [address] [place] [address] Social History Tobacco Use Types Packs/Day Years Used Date Smoking Tobacco: Light Smoker Comments:Light cigarette smo ker (1-9 cigarettes per day) Comments Unknown Sex and Gender Information Value Date Recorded Sex Assigned at Not on file Legal Sex Female 6:18 PM EDT Gender Identity Not on file Sexual Orientation Not on file documented as of this encounter Plan of Treatment Upcoming Encounters Date Type Department Care Team (Late st Contact Info) Description 02/19/2025 10:40 AM EST Office Visit [facility] Medicine Specialties [address] [place] [address] Judit León DO [address] [place] [phone] 02/19/2025 11:30 AM EST Office Visit [facility] General Surgery [address] [place] [address] Ashlee Stephens MD [address] [facility] [address] [place] [address] documented as of this encounter Procedures Procedure Name Priority Date/Time Associated Diagnosis Comments MAMMOGRAPHY OUTSIDE IMAGES 01/29/2022 12:55 PM EDT documented in this encounter Results * MAMMOGRAPHY OUTSIDE IMAGES (01/29/2022 12:55 PM EDT) Anatomical Region Laterality Modality Breast Mammography 01/29/2022 12:5 5 PM EDT us Josseline Cox DO IMG BI PROCEDURES Final Resul t documented in this encounter Visit Diagnoses Not on filedocumented in this encounter Care Teams Alcohol Law Enforcement Agent Relationship Specialty Start Date End Date Pcp, No [address] [place] [address] PCP - General Family Medicine 08/09/22 06/04/24 Josseline Cox DO [facility] [address] [place] [address] PCP - General 06/05/24 documented as of this encounter
--- OUTSIDE RECORDS SUMMARY | 2025-02-07 09:12 | XMS_ITS | Encounter Summary ---
Author Organization Healthcare Address [address] [id number] Care Team Providers Care Flux Mixer Name Role Phone Pcp, No Primary Care Provider Josseline Potts DO Primary Care Provider [phone] Reason for Referral * Consultation (Routine) - Closed Specialty Diagnoses / Procedures Referred By Contac t Referred To Contact Gastroenterology Diagnoses CC (Crohn's colitis), with fistula (CMS/HCC) Corry Jean Baptiste APRN [address] [address] Phone: tel: fax: Judit León DO [address] [facility] [address] [place] [address] Phone: tel: fax: Referral ID Status Reason Start Date Expiration Date V isits Requested Visits Authorized [id number] Closed Specialty Services Required 11/29/2023 05/30/2025 1 1 Encounter Details Date Type Department Care Team (Late st Contact Info) Description 11/29/2023 Community [facility] Community Practice [address] [place] [address] Corry Jean Baptiste APRN [address] [address] CC (Crohn's colitis), with fistula (CMS/HCC) (Primary Dx) Social History Tobacco Use Types Packs/Day Years [...] Description 02/19/2025 10:40 AM EST Office Visit [facility] Medicine Specialties [address] [place] [address] Judit León DO [address] [place] [address] 02/19/2025 11:30 AM EST Office Visit [facility] General Surgery [address] [place] [address] Ashlee Stephens MD [address] [place] [address] Scheduled Referrals Name Type Priority Associated Diagnoses Order Schedule Ambulatory referral to Gastroenterology Outpatient Referral Routine CC (Crohn's colitis), with fistula (CMS/HCC) 1 Occurrences starting 11/29/2023 until 05/28/2025 documented as of this encounter Visit Diagnoses Diagnosis CC (Crohn's colitis), with fistula (CMS/HCC)- Primary documented in this encounter Care Teams Flux Mixer Relationship Specialty Start Date End Date Pcp, No [address] [place] [address] PCP - General Family Medicine 08/09/22 06/04/24 Josseline Cox DO [address] [place] [address] PCP - General 06/05/24 documented as of this encounter
--- OUTSIDE RECORDS SUMMARY | 2025-02-07 09:12 | XMS_ITS | Data Portability ---
Author Organization [facility] [place] Tamia lewis, CKS NAZARETH CLOSED Address [address] [place] [address] Care Team Providers Care Pop Singer Name Role Phone JOHN GE Referring Provider [phone] Assessment Encounter Date Assessment Date Assessment LastModified by Organization Details LastModified Time 02/27/2024 02/27/2024 RTC in 4 weeks for possible K-10 inj Appro[address] Dr[address] Buenrostro to send in prescriptions of spirolactone and Metformin when patient needs refills [email or web address] Not available 02/27/2024 12:17:09 04/30/2024 04/30/[address] Buenrostro to send in prescriptions of spirolactone and Metformin when patient needs refills [email or web address] Not available 04/30/2024 14:38:03 12/04/2024 12/04/2024 F/u 3months Approved by Dr. Buenrostro to send in prescriptions of spirolactone and Metformin when patient needs refills [email or web address] Not available 12/04/2024 09:03:16 Plan of Treatment Reminders Order Date Submit Date Provider Last Modified By Organization Details Last Modified Time Details Appointments DERM VISIT 2024 09:30A M CRIS BUENROSTRO MD Not available Not available Not available Lab None recorded. Referral None recorded. Procedures None recorded. Surgeries None recorded. Imaging None recorded. Medication Orders doxycycli ne hyclate 100 mg capsule 2024 025 [email or web address] [facility], [address] [address], [place], [address], 12/04/2024 10:23:53 tretinoin 0.1 % topical cream 2024 025 [facility], [address] [place] [address], [address], 12/04/2024 10:23:53 spironola ctone 50 mg tablet 2024 025 [email or web address] [facility], [facility] [address] [address], [place], [address], 12/04/2024 10:23:53 Patient TargetsNo targets recorded. Patient Instructions Encounter Date Encounter Id Patient Instructions Last Modified By Organization Details Last Modified Time 02/27/2024 [id number] -Please call us for appointment with any changing or worrisome lesions or skin conditions. [email or web address] Not available 02/27/2024 12:20:02 04/30/2024 [id number] -Please call us for appointment with any changing or worrisome lesions or skin conditions. [email or web address] Not available 03/30/2024 13:43:26 12/04/2024 [id number] - Instructed to monitor for changes and to call us for appointment with any changing or worrisome lesions [email or web address] Not available 12/04/2024 08:55:46 Reason for Referral None Reported. Problems Name Problem SNOMED Code Status Onset Date Resolution Date Notes Provider Name and Address Organization Details Recorded Time Intestina l obstructi on due to Crohn's disease of small intestine 35399728623 22446 Active 2014 From Automated Load;Prov ider: Duke Westbrook;Stat us: Active Not Available [facility] 6 02:33:17 Fistula of intestine due to Crohn's disease of small and large intestine 68059195786 28357 Active 2015 From Automated Load;Prov ider: Duke Westbrook;Stat us: Active Not Available [facility] 6 02:33:17 Anorectal fistula 19852067 Active 2015 From Automated Load;Prov ider: Duke Westbrook;Stat us: Active Not Available [facility] 6 02:33:17 Anorectal abscess 21804289 Active 2015 From Automated Load;Prov ider: Duke Westbrook;Stat us: Active Not Available [facility] 6 02:33:17 Problem Notes None recorded. Procedures Surgical History Date Name Laterality Status Provider Name and Address Organization Details Recorded Time 04/30/19 25 Destruction BN Lesions completed Roxana Tripp [facility] 04/30/2024 14:39:55 02/27/20 24 Injection - Intralesional completed CRIS BUENROSTRO MD [address] [place] [address], [address], [facility] 02/27/2024 12:16:28 Imaging Results None recorded. Procedure Notes None recorded. Medical Equipment None Reported. Allergies Allergen ID Allergen Name Allergen Category Reaction Reaction Severity Criticality Documentation Date Start Date Code Code System Note Provider Name and Address Organization Details Recorded Time 338841 Product containin g penicilli n (product) medicatio n Not available Not available Not available 02/20/20162008 22366 8001 SNOMED Comme nt: Creat ed By: Franko gifford; Creat ed Date: 11:16 :43 AM; Not Available [facility] 6 03:46:43 451974 Substance with sulfonami de structure and antibacte rial mechanism of action (substanc e) medicatio n Not available Not available Not available 02/20/20162008 00659 8003 SNOMED Comme nt: Creat ed By: Franko gifford; Creat ed Date: 11:17 :10 AM; Not Available [facility] 6 04:32:35 465387 Augmentin medicatio n Not available Not available Not available 04/30/2024 95039 2 RxNorm Roxana Tripp [facility] 14:20:17 Medications Name Sig Start Date Stop Date Status Note LastModified by Organization Details LastModified Time tretinoin 0.1 % topical cream APPLY TO THE AFFECTED AREA(S) BY TOPICAL ROUTE ONCE DAILY AT BEDTIME 2024 active Not Available Not Available Not Avai lable metformin 500 mg tablet TAKE ONE (1) TABLET BY MOUTH EVERY DAY WITH MEAL active Not Available Not Available No t Available doxycyclin e hyclate 100 mg capsule TAKE ONE CAPSULE DAILY WITH MEAL 2024 active Not Available Not Available Not Avai lable Doc-Q-Lace 100 mg capsule Two times a day active Frequency : bid;Medic ation Descripti on: docusate; Route:ora l; refills:0 ; Quantity: 2 capsule Not Available Not Available Not Available lysine 1,000 mg tablet active Medicatio n Descripti on: lysine; Route:ora l; refills:0 Not Available Not Available Not Available spironolac tone 50 mg tablet TAKE ONE TABLET ONCE DAILY 2024 active Not Available Not Available Not Avai lable Alinia 500 mg tablet Two times a day 2015 active Duration: 30 days;Inst ructions: called in to [facility] [phone]; Frequency : bid;Medic ation Descripti on: nitazoxan faisal; Dosage:1; Route:ora l; refills:0 ; Quantity: 60 tablet Not Available Not Available Not Available Cipro active Not Available Not Availa ble Not Available labetalol active Medicatio n Descripti on: labetalol ; refills:0 Not Available Not Available Not Available Vitamin D3 As needed active Frequency : prn;Medic ation Descripti on: cholecalc iferol; Dosage:2; Route:ora l; refills:0 ; Quantity: otc Not Available Not Available Not Available Vitamin Daily active Frequency : daily;Med ication Descripti on: multivita min, ; Dosage:1; Route:ora l; refills:0 Not Available Not Available Not Available Humira Pen 40 mg/0.8 mL subcutaneo us kit Every week 2014 active Instructi ons: Inject 80mg subcutane ously *ONCE per week as directed; Frequency : Every week;Medi cation Descripti on: adalimuma b; Dosage:2; Route:sub cutaneous ; refills:6 ; Quantity: 8 kit Not Available Not Available Not Available Vitals None Recorded Social History None recorded. Functional Status None recorded. Mental Status None recorded. Family History Nothing Reported. Medical History Condition Response Varicose Veins Y Skin Problems Y Autoimmune disease Y Squamous Cell Carcinoma N Basal Cell Carcinoma N Skin Cancer N Eczema N Melanoma N Other Skin Condition Y Acne Y Gynecological HistoryNo gynecological history recorded. Obstetrics History GPAL:G 0 P 0 0 0 0 Immunizations Vaccine Type Date Status Note Provider Nam e and Address Organization Details Recorded Time Influenza, MDCK, quadrivalent, PF 01/12/2018 completed Not Available [facility] 5 08:29:58 COVID-19, mRNA, LNP-S, PF, 100 mcg/0.5mL dose or 50 mcg/0.25mL dose 06/25/2020 completed Not Available [facility] 5 08:29:58 COVID-19, mRNA, LNP-S, PF, 100 mcg/0.5mL dose or 50 mcg/0.25mL dose 07/23/2020 completed Not Available [facility] 5 08:29:58 Influenza, split virus, quadrivalent, PF 03/07/2023 completed Not Available [facility] 5 08:29:58 Influenza, split virus, trivalent, PF 01/24/2024 completed Not Available [facility] 2024 08:29:58 Past Encounters Encounter ID Performer Location Encounter Start Date Encounter Closed Date Diagnosis/Indication Diagnosis SNOMED-CT Code Diagnosis ICD10 Code Diagnosis IMO Codes Diagnosis Note [id number] CRIS BUENROSTRO MD [facility] [address] [place] [address] 02/27/2024 08:46:13 02/27/2024 11:22:48 Hidradenitis suppurativa 24061696 L73.2 Hidradenit is Suppurativ aChronic, flaring- Patient originally diagnosed with HS in 2016. Patient also has Crohn's disease and has [...] on weight control, patient is interested in [facility]. . [id number] CRIS BUENROSTRO MD [facility] [address] [place] [address] 04/30/2024 14:11:08 04/30/2024 14:47:36 Hidradenitis suppurativa 27739827 L73.2 Hidradenit is Suppurativ aChronic, minimal flaring- Patient originally diagnosed with HS in 2016. Patient also has Crohn's disease and has [...] not needed today follow up Epidermoid cyst 05232962 6 L72.0 Benign Reassuranc eDiscussed excision if lesion is bothersome patient has had it removed before but it returned 30 min exc and discussed she will have sutures for two weeks and no heavy lifting Inflamed s eborrheic keratosis 513048764 L82.0 Education then treated with LN; right cheek x 1 pt tolerated well advised pt what to expect with freezingTr eated with LN per patients request Tenderness of skin 08880 9000 R20.8 ISK, lesion is bothersome to patient [id number] CRIS BUENROSTRO MD [facility] [address] [place] [address] 12/04/2024 08:28:43 12/04/2024 09:25:00 Hidradenitis suppurativa 03044041 L73.2 Hidradenit is Suppurativ aChronic, stable- Patient originally diagnosed with HS in 2016. Patient also has Crohn's disease and has [...] Spirolacto ne and Metformin for additional management - At last OV, reviewed at length the nature of the condition, that it is chronic and can be controlled through consistent treatment but cannot be cured.- Weight control and smoking cessation reviewed- patient is seeing smoking cessation at and encouraged patient to speak to PCP on weight control, patient was approved for Zepbound. She already lost 30 lbs, may be transition ing to Rinvoq in the future if she stops smoking- Recommende d 10% benzoyl peroxide as cleanser Discussed using Clindamyci n topical for the small flares in betweenPat ient has done well with tac 10 il inj in the past - not needed today Requested refills for spironolac tone, doxy, and Retin A follow up Epidermoid cyst 38544025 6 L72.0 Benign Reassuranc eDiscussed excision if lesion is bothersome patient has had it removed before but it returned 30 min exc and discussed she will have sutures for two weeks and no heavy lifting Kushalia [id number] L72.0 34188 Benign Reassuranc e-Apply tretinoin qhs Seborrheic keratosis 394 166658 L82.1 [address] treatment if ever bothersome Health Concerns Section Related Observation LastModified by Organization Detai ls LastModified Time None Recorded Concern Status LastModified by Organization Details LastModified Time None Recorded Advance Directives Directive None Recorded Payers Insurance Date Sequence Insurance Name Policy Number Policy Perry Covered Member ID Perry Member ID Guarantor Name 02/27/2024 1 [place] [id number] Mary Hidalgo [id number] Anita A Hidalgo 12/01/2024 1 [place] [id number] Mary Doddran [id number] [facility] A Hidalgo Notes Date Note Type Note Provider Name and Address Organization Details Recorded Time 02/27/2024 text/html ROS as noted in the HPI New patient- Referred by: Dr. John Ge [...] history of malignant melanoma. CRIS BUENROSTRO [place] [facility] [place], [address], [facility] 02/27/2024 12:20:37 04/30/2024 text/html ROS as noted in the HPI New patient- Referred by: Dr. John Ge [...] history of malignant melanoma. CRIS BUENROSTRO MD [address] [place], [address], [facility] 04/30/2024 15:36:52 12/04/2024 text/html ROS as noted in the HPI Established patient ANIL 2. with Dr[address] Buenrostro 44yo F presents to clinic today for HS f/uPatient states that she is sore occasionally but no active areas at this time. Requested refills for spironolactone, doxy, and Retin A.Crohn's with perianal fistulas; [facility]/o of skin cancer: none Denies any other new or changing lesions. Feels well today. Denies family history of malignant melanoma. CRIS BUENROSTRO MD [address] [place], [address], [facility] 12/04/2024 10:23:27 OBGyn Episode No OBEpisode recorded.
--- OUTSIDE RECORDS SUMMARY | 2025-02-07 09:12 | XMS_ITS | Clinical Summary ---
Author Organization [facility] Address [address] [place] [address] Care Team Providers Care Addiction Counselor Name Role Phone Josseline Cox DO Primary Care Provider [phone] Allergies Active Allergy Reactions Criticality Noted Date Comments Amoxicillin-Pot Clavulanate Hives,Itching Medium 06/25/2021 Patient has tolerated amoxicillin alone Clavulanic Acid Hives High 09/30/2022 Shrimp Extract Anaphylaxis,Hives High 11/24/2023 Sulfa Drugs Swelling,Vomiting High 06/21/2014 Medications cholecalcifero l (Vitamin D-3) 5,000 Units tablet Take 1 tablet (5,000 Units) by mouth 1 (one) time per week. Active hydroCHLOROthi azide (HYDRODiuril) 25 MG tablet Take 1 tablet by mouth 1 time each day. 024 Active lamoTRIgine (LaMICtal) 25 MG tablet Take 2 tablets by mouth 1 time each day. Active metFORMIN (Glucophage) 500 MG tablet Take 1 tablet by mouth daily with breakfast. Active multivitamin (Theragran-M) tablet Take 1 tablet by mouth 1 time each day. Active omeprazole (PriLOSEC) [address] capsule Take 1 capsule by mouth 1 time each day. A needed Active sertraline (Zoloft) 100 MG tablet Take 1.5 tablets by mouth 1 time each day. Active spironolactone (Aldactone) 100 MG tablet Take 1 tablet by mouth daily. Active tretinoin (Retin-A) 0.025 % cream Apply topically as needed. Active doxycycline (Vibramycin) 100 MG capsule Take 1 capsule by mouth daily. Active B Complex-C (SUPER B COMPLEX PO) Take 1 tablet by mouth daily. Active cholecalcifero l (Vitamin D-3) 50 MCG (2000 UT) capsule as needed. Active Lysine 1000 MG tablet daily. Active bisacodyl (Dulcolax) 5 MG EC tablet Take all 4 tablets at 4 PM on day before colonoscopy . Do not crush, chew, or split. 4 tablet Active Additional Information Patient not taking.Reported on 11/20/2024 Adalimumab-ryv k (Simlandi, 2 Pen,) 40 MG/0.4ML Auto-injector KitIndications :CC (Crohn's colitis), with fistula (CMS/HCC) INJECT THE CONTENTS OF TWO PENS (80MG) SUBCUTANEOUSLY ONCE WEEKLY Directed. Refrigerate, do not freeze, allow to come to room temp before 8 each 5 Active mercaptopurine (Purixan) 50 MG tablet Take 1 tablet (50 mg total) by mouth daily. 90 tablet 3 025 2025 Active methocarbamol (Robaxin) 750 MG tablet as needed. Active busPIRone (Buspar) 5 MG tablet TAKE 1 TABLET BY MOUTH TWICE DAILY MAY CAUSE DROWSINESS 60 tablet 2 Active dicyclomine (Bentyl) 10 MG capsule TAKE 1 CAPSULE BY MOUTH FOUR TIMES DAILY IF NEEDED (CRAMPING). 60 capsule 2 Active cholecalcifero l (Vitamin D-3) 1.25 MG (69017 UT) capsule Take 1 capsule by mouth 1 time per week. On Saturdays Active naloxone (Narcan) 4 mg/0.1 mL nasal spray 1. Give 1 spray in nostril for no/slow breathing or cannot wake after opioid use 2. Call 911 3. Repeat in other nostril if symptoms continue 1 each Active Additional Information Patient not taking.Reported on 01/15/2025 diazePAM (Valium) 5 MG tablet Take 1 tablet by mouth every 8 hours as needed for anxiety or muscle spasms for up to 15 doses. 15 tablet 025 Active Vit-Fe Fumarate-FA ( Vitamin) 27-0.8 MG tablet daily. Active cholecalcifero l (Vitamin D-3) 50 MCG (1999 UT) capsule as needed. Active ondansetron (Zofran) 4 MG tablet Take 1 tablet by mouth every 6 hours as needed. Active oxyCODONE (Roxicodone) 5 MG immediate release tabletIndicati ons:Hidradenit is suppurativa of anogenital region Take 1 tablet by mouth every 6 hours as needed for moderate pain for up to 15 doses. 15 tablet Active clindamycin (Cleocin T) 1 % lotion Apply topically as needed. 023 2024 Discontinued allopurinol (Zyloprim) 100 MG tablet Take 1 tablet by mouth daily. 90 tablet 025 2024 oxyCODONE (Roxicodone) 5 MG immediate release tabletIndicati ons:Hidradenit is suppurativa of anogenital region Take 1 tablet by mouth every 6 hours as needed for moderate pain for up to 15 doses. 15 tablet 025 2024 Discontinued(R eorder) Active Problems Problem Noted Date Diagnosed Date Obesity (BMI 35.0-39.9 without comorbidity) 10/27 Perianal fistula due to Crohn's disease 06/06/19 25 Hidradenitis suppurativa of anus 06/05/2024 Dyspnea 02/21/2024 Group G streptococcal infection 02/21/2024 Low back pain 02/21/2024 Left knee pain 02/21/2024 Injury of triangular fibroca rtilage complex (TFCC) of right wrist 02/21/2024 Right upper quadrant abdominal pain 02/21/2024 Viral syndrome 02/21/2024 Sprain of right scapholunate ligament 02/21/2024 CHENCHO positive 11/25/2023 Arthralgia of multiple sites 11/25/2023 Elevated C-reactive protein (CRP) 11/25/2023 Fatty liver 11/25/2023 Psoriasis 11/25/2023 Psoriatic arthritis of multiple joints Left ovarian cyst 10/27/2023 Pelvic pain 10/27/2023 Arthritis of right knee 12/25/2021 Hidradenitis 12/25/2021 Nodule of upper lobe of right lung 10/14/2020 Overview (02/21/2024): 6 mm right upper lobe found on CT of chest, needs repeat CT chest in 6 months to follow up Crohn's disease 06/12/2019 Anxiety 10/14/2018 Essential hypertension 10/13/2018 Neck pain 10/13/2018 Resolved Problems Problem Noted Date Diagnosed Date Resolved Date Sinusitis 02/21/2024 12/16/2024 Encounters Date Type Department Care Team Description 01/15/2025 8:30 AM EDT Office Visit [facility] General Surgery [address] [place] [address] Ashlee Stephens MD Hidradenitis suppurativa of anus (Primary Dx); Hidradenitis suppurativa of anogenital region 01/15/2025 Travel 01/14/2025 Travel 12/30/2024 Orders Only [facility] Multidisciplinary Oncology Clinic [address] [place] [address] Ashlee Stephens MD Hidradenitis suppurativa of anogenital region (Primary Dx) 12/26/2024 Telephone [facility] General Surgery [address], [address] [place] [address] Ashlee Stephens MD [facility] Clinical Concern/Question 12/24/2024 7:30 AM EDT - 12/24/2024 9:00 AM EDT Surgery [facility] Operating Room [address] [place] [address] Ashlee Stephens MD INCISION AND DRAINAGE, ABSCESS, ISCHIORECTAL OR INTRAMURAL, WITH FISTULECTOMY OR FISTULOTOMY; excision of hidraditis suppurativa [74558 (CPT )] 12/24/2024 7:21 AM EDT Anesthesia Event [facility] Operating Room [address] [place] [address] Anselmo Marmolejo MD 12/24/2024 5:29 AM EDT - 12/24/2024 9:40 AM EDT Hospital Encounter [facility] Operating Room [address] [place] [address] Ashlee Stephens MD Hidradenitis suppurativa of anus; Perianal fistula due to Crohn's disease (CMS/HCC) Discharge Disposition: Home or Self Care 12/24/2024 Travel 12/17/2024 Travel 12/05/2024 Results Follow-Up [facility] Medicine Specialties [address] [place] [address] Judit León, DO 11/29/2024 Refill [facility] Medicine Specialties [address] [place] [address] Judit León, DO 11/20/2024 1:45 PM EDT - 11/20/2024 11:59 PM EDT Hospital Encounter [facility] Radiology [address] [place] [address] Perianal fistula due to Crohn's disease (CMS/HCC); Adalimumab (Humira) long-term use; Back pain, sacroiliac Discharge Disposition: Home or Self Care 11/20/2024 9:00 AM EDT Office Visit [facility] General Surgery [address] [place] [address] Ashlee Stephens MD Hidradenitis suppurativa of anus (Primary Dx); Perianal fistula due to Crohn's disease (CMS/HCC) 11/20/2024 Travel 11/18/2024 Travel from Last 3 Months Immunizations Immunization Administration Dates Next Due Influenza, injectable, MDCK, preservative free, quadrivalent 01/12/2018 Influenza, injectable, quadrivalent, preservativ e free 03/07/2023,01/31/2015 Influenza, seasonal, injectable, preservative fr ee 01/24/2024 Family History Medical History Relation Name Comments Arthritis Father [place] Heart disease Father [place] Hypercholesterolemia Father [place] Arthritis Mother Vivian Asthma Mother Vivian Breast cancer Mother Vivian Cancer Mother Vivian Heart disease Mother Vivian Hypercholesterolemia Mother Vviian Breast cancer Sister 1 Breast cancer Sister 2 Relation Name Status Comments Father [place] Mother Vivian Sister 1 Sister 2 Social History Tobacco Use Types Packs/Day Years Used Date Smoking Tobacco: Former Cigarettes 1 26 0 03/28/1997 - 03/28/2023 Passive Smoke Exposure: Never Smokeless Tobacco: Never Tobacco Cessation:Counseling Given: Not Answered Comments:Light cigarette smoker (1-9 cigarettes per day) Alcohol Use Standard [...] F) 01/15/2025 8:42 AM EDT Respiratory Rate 12 12/24/2024 9:00 AM EDT Oxygen Saturation 93% 12/24/2024 9:00 AM EDT Inhaled Oxygen Concentration - - Weight 97.5 kg (215 lb) 01/15/2025 8:42 AM EDT Height 166 cm (5' 5.35 ) 01/15/2025 8:42 AM EDT Body Mass Index 35.39 01/15/2025 8:42 AM EDT Plan of Treatment Upcoming Encounters Date Type Department Care Team (Late st Contact Info) Description 02/19/2025 10:40 AM EST Office Visit [facility] Medicine Specialties [address] [place] [address] Judit León, [address] [place] [address] 02/19/2025 11:30 AM EST Office Visit [facility] General Surgery [address], [address] [place] [address] Ashlee Stephens MD [address] [place] [address] Health Maintenance Due Date Last Done Comments [facility]-/Child/Adol SDOH Screenings 1980 [facility]-Varicella Vaccines (1 of 2 - 13+ 2-dose series) 01/01/1993 [facility]- SDOH Screenings 01/01/1998 [facility]-Adult SDOH Screenings 01/01/1998 [facility]-DTaP,Tdap,and Td Vaccines (1 - Tdap) 01/01/1999 [facility]-Hepatitis A Vaccines (1 of 2 - Risk 2-dose series) 01/01/1999 [facility]-Hepatitis B Vaccines (1 of 3 - 19+ 3-dose series) 01/01/1999 [facility]-Pneumococcal Vaccine: Pediatrics (0 to 5 Years) and At-Risk Patients (6 to 49 Years) (1 of 2 - PCV) 01/01/1999 [facility]-Zoster Vaccines (1 of 2) 01/01/1999 HPV Vaccines (1 - Risk 3-dose SCDM series) 01/01/2007 [id number]-09 Vaccine (3 - Moderna risk series) 08/20/2020 07/23/2020, 06/25/2020 [facility]-Influenza Vaccine (#1) 11/26/202401/23, 03/07/2023, 01/12/2018, Additional history exists CT Colonography 01/01/2025 FIT-DNA 01/01/2025 FIT 01/01/2025 FOBT 01/01/2025 Sigmoidoscopy 01/01/2025 [facility]-Depression Screening 01/15/2026 01/15/2025, 12/27 Colonoscopy 10/19/2034 10/19/2024, 09/26, 09/12/2024, Additional history exists [facility]-Colorectal Cancer Screening 10/19/2034 [facility]-HIV Screening Completed 01/16/2015 [facility]-Hepatitis C Screening Completed 08/19/2020, [facility]-Diabetes: Hemoglobin A1C Discontinued 08/15/2023 [facility]-Obesity Intervention Completed 025, 11/20/2024, 10/23/2024, Additional history exists [facility]-HIB Vaccines Aged Out No longer e ligible based on patient's age to complete this topic [facility]-IPV Vaccines Aged Out No longer e ligible based on patient's age to complete this topic [facility]-Rotavirus Vaccines Aged Out No lo nger eligible based on patient's age to complete this topic Procedures Procedure Name Priority Date/Time Associated Diagnosis Comments SURGICAL PATHOLOGY EXAM Routine 12/25/19 7:46 AM EDT Hidradenitis suppurativa of anus Perianal fistula due to Crohn's disease (CMS/HCC) PB ANESTHESIA PLACEHOLDER Routine 12/24/2024 7:31 AM EDT AL AN ELECTIVE ENDOTRACHEAL AIRWAY Routine 12/24/2024 7:31 AM EDT AL I&D RECTAL ABSCESS + FISTULECTOMY 12/24/2024 7:08 AM EDT Hidradenitis suppurativa of anus Perianal fistula due to Crohn's disease (CMS/HCC) POCT GLUCOSE METER UNSOLICITED RESULTS Routine 12/24/2024 6:26 AM EDT MR PELVIS W AND WO IV CONTRAST Routine 11/20/2024 2:34 PM EDT Perianal fistula due to Crohn's disease (CMS/HCC) Adalimumab (Humira) long-term use Back pain, sacroiliac COLONOSCOPY 10/19/2024 11:02 AM EDT HEPATITIS C ANTIBODY W/REFLEX TO HCV QUANT PCR Routine 01/16/2015 12:29 PM EDT HIV 1/2 ANTIBODY/ANTIGEN SCREEN WITH REFLEX TO HIV I/II DIFFERENTIATION Routine 01/16/2015 12:29 PM EDT from Last 3 Months or Most Recently Relevant to Health Maintenance Results * Surgical Pathology Exam (12/24/2024 7:46 AM EDT) Case Report Surgical Pathology Case: [id number] Authorizing Provider: Ashlee Stephens MD Collected: 12/24/2024 0812 Ordering Location: [facility] Operating Room Received: 12/24/2024 1045 Pathologist: Fernando Fonseca MD Specimens: A) - Anus, left lateral anal lesion B) - Buttock, Left, left gluteal hidratinitis C) - Anus, left posteror anal lesion D) - Anus, right posterior anal lesion E) - Buttock, Left, left posterior gluteal lesion 1:06 PM EDT [facility] Final Diagnosis A. LEFT [...] OF DYSPLASIA OR MALIGNANCY 1:06 PM EDT [facility] at 1306 EDT Clinical [...] small abscess with pus. 1:06 PM EDT [facility] Special and Immunohistochemical Stains IHC: A1-2 P16 Patchy weak staining (interpreted as negative) A1-3 T. Pallidum (Spirochete) Negative All controls show appropriate reactivity. All immunohistochemis try, in situ hybridization, and histochemical tests were developed by and are performed at the [facility], [address] [place] [address]. All tests reported here, except those addressing [...] on decalcified specimens. 5 1:06 PM EDT [facility] Gross Description A. LEFT LATERAL ANAL LESION Received in formalin labeled left lateral anal lesion is a portion of pink-garcia fibrous skin measuring 4.5 x up to 1.5 x up to 1.5 cm. The skin/mucosal surface is undulating and wrinkled but otherwise grossly unremarkable. Resection margin inked blue and wine sales representative sections are submitted in cassette A1. [...] otherwise grossly unremarkable. Resection margin inked blue wine sales representative sections are submitted in cassette C1. Cold Time: <1m Betty Quezada (entirely submitted in cassettes C2-C3 10.2.25 -KP) D. RIGHT POSTERIOR ANAL LESION Received in formalin labeled right posterior anal lesion is a portion of pink-garcia fibrous skin measuring 3.5 x 1.3 x 0.7 cm. The skin/mucosal surface is undulating, wrinkled, and slightly crusted. Resection margin inked blue and wine sales representative sections are submitted in cassette D1. Cold Time: <1m Betty Quezada (entirely submitted in cassettes D2-D3 10.2.25 -KP) E. LEFT POSTERIOR GLUTEAL LESION Received in formalin labeled left posterior gluteal lesion is a portion of pink-millan fibrous skin measuring 3.2 x 1.1 x 1.0 cm. The skin surface is bumpy and wrinkled but otherwise grossly unremarkable. Resection margin inked blue and wine sales representative sections are submitted in cassette E1. Cold Time: <1m Betty Quezada (entirely submitted in cassettes E2-E4 10.2.25 -KP) 1:06 PM EDT [facility] Intradepartmental Consultation with Agreement Portions of this case were also reviewed by Dr. Casandra Boland, with agreement upon the overall impressions. 1:06 PM EDT [facility] Note: A resident was involved in the service. I attest I examined the relevant preparations for the specimens and confirmed the diagnosis or interpretation. 1:06 PM EDT [facility] Tissue Anal structure / [...] Stephens MD LAB PATHOLOGY ORDERABLES Final Result [facility] [address] [place] [address] * AL AN ELECTIVE ENDOTRACHEAL AIRWAY, PB ANESTHESIA PLACEHOLDER (12/24/2024 7:31 AM EDT) Narrative Elias Cope CRNA - 12/24/2024 7:31 AM EDT Elias Cope CRNA 12/24/2024 7:46 AM Airway Date/Time: 12/24/2024 7:31 AM Reason: elective Airway not difficult General Information and Staff Patient location during procedure: OR [employer]: Elias Cope CRNA Performed: [employer] Patient Condition Indications for airway management: anesthesia [...] Marmolejo MD ANESTHESIA ORDERABLES Final Re sult * (ABNORMAL) POCT glucose meter (12/24/2024 6:26 AM EDT) POCT Glucose 104(H) 74 - 99 mg/dL 12/24/2024 6:28 AM EDT [facility] Comment:Accuracy of a glucos e [...] for testing. Comment 12/24/2024 6:28 AM EDT [facility] Choir Member ID Reshma Thornton 12/24/2024 6:28 AM EDT [facility] Device ID [id number] 12/24/2024 6:28 AM EDT [facility] Specimen Type POC Capillary 12/24/2024 6:28 AM EDT [facility] Blood Capillary blood specimen / Unknown 12/24/2024 6:26 AM EDT 12/24/2024 6:28 AM EDT us Ashlee Stephens MD LAB POINT OF CARE TE ST DOCKED DEVICE UNSOLICITED RESULTS Final Result Performing Organization Address City/State/[facility] Co de Phone Number [facility] [address] [place] [address] * MR Pelvis w and wo IV Contrast (11/20/2024 2:34 PM EDT) Anatomical Region Laterality Modality Abdomen Magnetic Resonan ce Impressions 11/21/2024 11:10 AM EDT Redemonstration of complex communicating transsphincteric perianal fistulas, similar in appearance compared to the prior study with 2 internal openings as described above and 3 external openings. No definite fluid collection or abscess. Persistent lymphadenopathy. CRITICAL RESULT: No. COMMUNICATION: Per this written report. By electronically signing this report, I, the attending physician, attest that I have personally reviewed the images/data for the above examination(s) and agree with the final edited report. Drafted by Cy Sebastian MD on 11/21/2024 10:08 AM Final report signed by Ellis Bhardwaj MD on 11/21/2024 11:10 AM Narrative 11/21/2024 11:10 AM EDT CLINICAL INDICATION: Perianal Crohn's disease (Ped 0-17y) TECHNIQUE: Multiplanar, multisequence MR imaging of the pelvis was performed with and without the administration of intravenous material. 9.9 mL of Gadavist was administered . COMPARISON: February 16, 2024 FINDINGS: Uterus: The uterus is surgically absent. Vaginal apex is unremarkable. Ovaries: Ovaries are not definitively visualized. Vagina/Urethra: Unremarkable. Fluid: There is a physiologic amount of free fluid. Lymph Nodes: Redemonstration of multiple enlarged mesorectal lymph nodes present pole on series 5 image 8 and series 5 image 12. Other: Redemonstration of complex transsphincteric perianal fistula in the left perianal region, with similar appearance compared to the prior study with internal opening at the 7:00 position (series 5 image 23). Additional fistulous tract appears to originate at the 1:00 position as well (series 5 image 22). Both tracts appear to converge into one fistula best demonstrated on series 5 images 21 and 22, with the external opening best seen on series 5 image 31 in the left gluteal region. Additional branching tracks project more anteriorly in the left gluteal region (series 5 image 34). Third external opening extends towards the intragluteal region with opening likely best demonstrated on series 4 image 31. No definite abscess or fluid collection. The osseous structures demonstrate normal marrow signal intensity.. Procedure Note Ellis Bhardwaj MD - 11/21/2024 CLINICAL INDICATION: Perianal Crohn's disease (Ped 0-17y) TECHNIQUE: Multiplanar, multisequence MR imaging of the pelvis was performed with andwithout the administration of intravenous material. 9.9 mL of Gadavist wasadministered . COMPARISON: February 16, 2024 FINDINGS: Uterus: The uterus is surgically absent. Vaginal apex is unremarkable. Ovaries: Ovaries are not definitively visualized. Vagina/Urethra: Unremarkable. Fluid: There is a physiologic amount of free fluid. Lymph Nodes: Redemonstration of multiple enlarged mesorectal lymph nodespresent pole on series 5 image 8 and series 5 image 12. Other: Redemonstration of complex transsphincteric perianal fistula in theleft perianal region, with similar appearance compared to the prior studywith internal opening at the 7:00 position (series 5 image 23). Additionalfistulous tract appears to originate at the 1:00 position as well (series5 image 22). Both tracts appear to converge into one fistula bestdemonstrated on series 5 images 21 and 22, with the external opening bestseen on series 5 image 31 in the left gluteal region. Additional branchingtracks project more anteriorly in the left gluteal region (series 5 image34). Third external opening extends towards the intragluteal region withopening likely best demonstrated on series 4 image 31. No definite abscessor fluid collection. The osseous structures demonstrate normal marrow signal intensity.. IMPRESSION: Redemonstration of complex communicating transsphincteric perianalfistulas, similar in appearance compared to the prior study with 2internal openings as described above and 3 external openings. No definitefluid collection or abscess. Persistent lymphadenopathy. CRITICAL RESULT: No. COMMUNICATION: Per this written report. By electronically signing this report, I, the attending physician, attzinaat I have personally reviewed the images/data for the aboveexamination(s) and agree with the final edited report. Drafted by Cy Sebastian MD on 11/21/2024 10:08 AM Final report signed by Ellis Bhardwaj MD on 11/21/2024 11:10 AM us Judit León DO IMG MRI PROCEDURES Final Res ult * Colonoscopy (10/19/2024 11:02 AM EDT) Anatomical Region Laterality Modality Endoscopy 10/19/2024 10:2 4 AM EDT Impressions 10/19/2024 11:02 AM EDT Please see media tab for the result. Information added by interface. Narrative Procedure Note Provider, External - 10/19/2024 IMPRESSION: Please see media tab for the result. Information added by interface. us External Provider GI PROCEDURE ORDERABLES Final Result * HIV 1 & 2 Antibody/Antigen Screen (01/16/2015 12:29 PM EDT) HIV 1 Result NONREACTIVE Screening for HIV 1 and 2 antibodies is NONREACTIVE. No confirmatory testing is required. [facility]QUEST 01/16/2015 12:2 9 PM EDT 01/16/2015 6:17 PM EDT Zenobia Sevilla MD LAB BLOOD ORDERABLES Final Re sult SUNQUEST * Hepatitis C Antibody (01/16/2015 12:29 PM EDT) Hepatitis C Antibody NEGATIVE Reference Range: Negative [facility] 01/16/2015 12:2 9 PM EDT 01/16/2015 6:17 PM EDT Zenobia Sevilla MD LAB BLOOD ORDERABLES Final Re sult SUNQUEST from Last 3 Months or Most Recently Relevant to Health Maintenance Insurance ANTH Care Teams Addiction Counselor Relationship Specialty Start Date End Date Josseline Cox DO [address] [place] [address] PCP - General 06/05/24
--- OUTSIDE RECORDS SUMMARY | 2025-02-07 09:12 | XMS_ITS | Encounter Summary ---
Author Organization [facility] Address [address] [place] [address] Care Team Providers Care Debt Management Counselor Name Role Phone Josseline Cox DO Primary Care Provider [phone] Reason for Visit * Reason Onset Date Comments Med Refill 10/11/2020 Encounter Details Date Type Department Care Team (Late st Contact Info) Description 10/11/2020 Refill [facility] [address] [place] [address] Kriss Ardon, QUALITY ASSURANCE/R&D LAB TECHNICIAN [address] [place] [address] Essential hypertension Social History Tobacco [...] documented as of this encounter Care Teams Debt Management Counselor Relationship Specialty Start Date End Date Josseline Cox DO [address] [place] [address] PCP - General Family Medicine 04/30/21 documented as of this encounter
--- OUTSIDE RECORDS SUMMARY | 2025-02-07 09:13 | XMS_ITS | Encounter Summary ---
Author Organization Healthcare Address [address] [place] [address] Care Team Providers Care Homebound Teacher Name Role Phone Josseline Cox Demi BURDEN Primary Care Provider [phone] Encounter Details Date Type Department Care Team (Late st Contact Info) Description 12/05/2024 [facility] [address] [place] [address] Judit León DO [address] [place] [address] Social History Tobacco Use Types Packs/Day Years [...] Not at all 01/15/2025 8:44 AM EDT Diana Robertsfer S Feeling down, depressed, or hopeless Not at all 01/15/2025 8:44 AM EDCarlitos Pope'Duy Oksana Angela Patient Health Questionnaire -2 Score 0 01/15/2025 8:44 AM EDCarlitos Pope'Oksana Gordillo * Question Answer Date of Assessment Author Trouble falling or staying asleep, or sleeping too much Not at all 01/15/2025 8:44 AM EDT Niko'Hair Oksana S Feeling tired or having maikel le energy Not at all 01/15/2025 8:44 AM EDT O'Hair, Oksana S Poor appetite or overeating Not at all 01/15/2025 8: 44 AM EDT O'Hair Oksana S Feeling bad about yourself - or that you are a failure or have let yourself or your family down Not at all 01/15/2025 8:44 AM EDT Niko'Evans kenny Oksana S Trouble concentrating on thi ngs, such as reading the newspaper or watching television Not at all 01/15/2025 8:44 AM EDT Niko'HairDianaOksana S Moving or speaking so slowly that other people could have noticed? Or the opposite - being so fidgety or restless that you have been moving around a lot more than usual. Not at all 01/15/2025 8:44 AM BABS Pope'Diana Gordillofer Agnela Thoughts that you would be better off or hurting yourself in some way Not at all 01/15/2025 8:44 AM Oksana Osborn Patient Health Questionnaire -9 Score 0 01/15/2025 8:44 AM BABS Pope'Oksana Gordillo * Calculated C-SSRS Risk Score (Lifetime/Recent) Answer Date of Assessment Author No Risk Indicated 12/24/2024 6:00 AM Do steph Mendez, RN * How difficult have these problems made it for you to do your work, take care of things at home, or get along with other people? Answer Date of Assessment Author Not difficult at all 01/15/2025 8:44 AM EDT O'Evans Oksana cox * Question Answer Date of Assessment Author 1. Wish to be (Past 1 Month) No 025 6:00 AM EDT Yojana Boland, RN 2. Non-Specific Active Suici jasmine Thoughts (Past 1 Month) No 12/24/2024 6:00 AM EDT Yojana Boland, RN 6. Suicidal Behavior (Lifetime) No 6:00 AM EDT Yojana Boland, RN documented as of this encounter Plan of Treatment Upcoming Encounters Date Type Department Care Team (Late st Contact Info) Description 02/19/2025 10:40 AM EST Office Visit [facility] Medicine Specialties [address] [place] [address] Judit León DO [address] [place] [address] 02/19/2025 11:30 AM EST Office Visit [facility] General Surgery [address] [place] [address] Ashlee Stephens MD [address] [place] [address] documented as of this encounter Visit Diagnoses Not on filedocumented in this encounter Additional Health Concerns Assessment Noted Time PHQ-9 Depression Total Score: 0 10/24/19 12:18 PM EDT A fall risk assessment has been complete d for the patient 10/23/2024 12:18 PM EDT A Body Mass Index follow-up plan has been documented for the patient 11/29/2024 7:33 AM EDT documented as of this encounter Care Teams Homebound Teacher Relationship Specialty Start Date End Date Josseline Cox DO [address] [facility] [address] [place] [address] PCP - General 06/05/24 documented as of this encounter
--- OUTSIDE RECORDS SUMMARY | 2025-02-07 09:13 | XMS_ITS | Encounter Summary ---
Author Organization Healthcare Address [address] [place] [address] Care Team Providers Care Legal Executive Name Role Phone Josseline Cox Primary Care Provider [phone] Encounter Details Date Type Department Care Team (Latest Contact Info) Description 12/17/2024 Travel Social History Tobacco Use Types Packs/Day [...] Description 02/19/2025 10:40 AM EST Office Visit [facility] Medicine Specialties [address], [address] [place] [address] Judit León DO [address] [place] [address] 02/19/2025 11:30 AM EST Office Visit [facility] General Surgery [address], [address] [place] [address] Ashlee Stephens MD [address] [place] [address] documented as of this encounter [...] documented as of this encounter Care Teams Legal Executive Relationship Specialty Start Date End Date Josseline Cox DO [address] [facility] [address] [place] [address] PCP - General 06/05/24 documented as of this encounter
--- OUTSIDE RECORDS SUMMARY | 2025-02-07 09:13 | XMS_ITS | Encounter Summary ---
Author Organization Healthcare Address [address] [place] [address] Care Team Providers Care Clinical Resource Manager Name Role Phone Evie Bacon MD Primary Care Provider [phone] Pcp, No Primary Care Provider Josseline Potts DO Primary Care Provider [phone] Encounter Details Date Type Department Care Team (Late st Contact Info) Description 03/01/2013 Orders Only External Location [address] [place] [address] Provider, External Social History Tobacco Use Types Packs/Day Years Used Date Smoking Tobacco: Never Assessed Comments Unknown Sex and Gender Information Value Date Recorded Sex Assigned at Not on file Legal Sex Female 6:18 PM EDT Gender Identity Not on file Sexual Orientation Not on file documented as of this encounter Plan of Treatment Upcoming Encounters Date Type Department Care Team (Late st Contact Info) Description 02/19/2025 10:40 AM EST Office Visit [facility] Medicine Specialties [address] [place] [address] Judit León DO [address] [place] [address] 02/19/2025 11:30 AM EST Office Visit [facility] General Surgery [address], [address] [place] [address] Ashlee Stephens MD [address] [place] [address] documented as of this encounter Procedures Procedure Name Priority Date/Time Associated Diagnosis Comments US BREAST OUTSIDE IMAGES 03/01/2013 3:43 PM EST documented in this encounter Results * US BREAST OUTSIDE IMAGES (03/01/2013 3:43 PM EST) Anatomical Region Laterality Modality Breast Mammography 03/01/2013 3:43 PM EST us External Provider IMG BI PROCEDURES Final Result documented in this encounter Visit Diagnoses Not on filedocumented in this encounter Care Teams Clinical Resource Manager Relationship Specialty Start Date End Date Evie Bacon MD [address] [place] [address] PCP - General 08/08/20 06/16/21 Pcp, Nicki [address] [place] [address] PCP - General Family Medicine 08/09/22 06/04/24 [place] [address] [place] [address] [address] [place] [address] PCP - General 06/05/24 documented as of this encounter
--- OUTSIDE RECORDS SUMMARY | 2025-02-07 09:13 | XMS_ITS | Encounter Summary ---
Author Organization Healthcare Address [address] [place] [address] Care Team Providers Care Serology Technician Name Role Phone Josseline Cox DO Primary Care Provider [phone] Encounter Details Date Type Department Care Team (Latest Contact Info) Description 12/30/2024 Orders Only [facility] [address] [place] [address] Ashlee Stephens MD [address] [facility] [address] [place] [address] Hidradenitis suppurativa of anogenital region (Primary Dx) Social History Tobacco Use Types [...] Description 02/19/2025 10:40 AM EST Office Visit [facility] Medicine Specialties [address] [place] [address] Judit León DO [address] [place] [address] 02/19/2025 11:30 AM EST Office Visit [facility] General Surgery [address], [address] [place] [address] Ashlee Stephens MD [address] [place] [address] documented as of this encounter Visit Diagnoses Diagnosis Hidradenitis suppurativa of anogenital region- Primary documented in this encounter Additional Health Concerns Assessment Noted Time PHQ-9 Depression Total Score: 0 10/24/19 12:18 PM EDT A fall risk assessment has been complete d for the patient 10/23/2024 12:18 PM EDT A Body Mass Index follow-up plan has been documented for the patient 11/29/2024 7:33 AM EDT documented as of this encounter Care Teams Serology Technician Relationship Specialty Start Date End Date Josseline Cox DO 0 [facility] [address] [place] [address] PCP - General 06/05/24 documented as of this encounter
--- OUTSIDE RECORDS SUMMARY | 2025-02-07 09:13 | XMS_ITS | Encounter Summary ---
Author Organization Healthcare Address [address] [place] [address] Care Team Providers Care Laundromat Worker Name Role Phone Josseline Cox Primary Care Provider [phone] Encounter Details Date Type Department Care Team (Latest Contact Info) Description 01/14/2025 Travel Social History Tobacco Use Types Packs/Day [...] Description 02/19/2025 10:40 AM EST Office Visit [facility] Medicine Specialties [address] [place] [address] Judit León DO [address] [place] [address] 02/19/2025 11:30 AM EST Office Visit [facility] General Surgery [address] [place] [address] Ashlee Stephens MD [address] [place] [address] documented as of this encounter [...] documented as of this encounter Care Teams Laundromat Worker Relationship Specialty Start Date End Date Josseline Cox DO [address] [facility] [address] [place] [address] PCP - General 06/05/24 documented as of this encounter
--- OUTSIDE RECORDS SUMMARY | 2025-02-07 09:13 | XMS_ITS | Encounter Summary ---
Author Organization [facility] Address [address] [place] [address] Care Team Providers Care Finishing Department Supervisor Name Role Phone Josseline Cox DO Primary Care Provider Encounter Details Date Type Department Care Team (Latest Contact Info) Description 12/24/2024 Travel Social History Tobacco Use Types Packs/Day [...] (Past 1 Month) No 025 6:00 AM Yojana Mendez RN 2. Non-Specific Active Suici jasmine Thoughts (Past 1 Month) No 12/24/2024 6:00 AM Yojana Mendez RN 6. Suicidal Behavior (Lifetime) No 09/29/202 5 6:00 AM EDT Yojana Boland RN documented as of this encounter Plan of Treatment Upcoming Encounters Date Type Department Care Team (Late st Contact Info) Description 02/19/2025 10:40 AM EST Office Visit [facility] Medicine Specialties [address] [place] [address] Judit León, [address] [place] [address] 02/19/2025 11:30 AM EST Office Visit [facility] General Surgery [address] [place] [address] Ashlee Stephens MD [address] [place] [address] documented as of this encounter [...] documented as of this encounter Care Teams Finishing Department Supervisor Relationship Specialty Start Date End Date Josseline Cox DO [address] [facility] [address] [place] [address] PCP - General 06/05/24 documented as of this encounter
--- OUTSIDE RECORDS SUMMARY | 2025-02-07 09:13 | XMS_ITS | Encounter Summary ---
Author Organization Healthcare Address [address] [place] [address] Care Team Providers Care Perch Machine Inspector Name Role Phone Josseline Cox DO Primary Care Provider [phone] Reason for Visit * Reason Onset Date Comments HCN Clinical Concern/Question 12/26/2024 Encounter Details Date Type Department Care Team (Late st Contact Info) Description 12/26/2024 Telephone [facility] General Surgery [address] [place] [address] Ashlee Stephens MD [address] [place] [address] HCN Clinical Concern/Question Social History Tobacco Use Types Packs/Day Years [...] on file documented as of this encounter Miscellaneous Notes * Telephone Encounter - Ashlee Stephens MD - 12/30/2024 8:37 AM EDT I put in the refills * Telephone Encounter - Ann Wallace RN - 12/28/2024 3:08 PM EDT Patient is requesting refill of Oxycodone and Valium if possible. Will run out soon. Had surgery on12/24. * Telephone Encounter - Ann Wallace RN - 12/26/2024 11:41 AM EDT Spoke with patient. Is having a lot of post op pain. Unable to sleep. Has tried ice packs and sitz baths. Can't tolerate but for a few minutes each. Alternating Oxycodone, Tylenol, and Valium. Unableto take Ibuprofen due to Crohn's. Will continue to try all these methods as we are unable to send anything else in for pain at this time. Will call back on Tuesday morning if the pain is still this bad. Verbalized understanding. * Telephone Encounter - Oksana Benson - 12/26/2024 9:17 AM EDT Patient Phone Message Reason for Call: Pt is calling requesting something stronger for pain management-states her surgeyr was on Tuesday and she has not been able to sleep due to pain. Please advise Best contact number and optimal time of day to reach caller: [phone] Note: Please do not reply to this message. Follow-up communication and further actions as a result of this message need to be communicated with the patient directly, if the patient is not active onMyChart. If the patient is active on MyChart, they will receive notification of the communication/outcome via [employer]. documented in this encounter Plan of Treatment Upcoming Encounters Date Type Department Care Team (Late st Contact Info) Description 02/19/2025 10:40 AM EST Office Visit [facility] Medicine Specialties [address] [place] [address] Judit León DO [address] [place] [address] 02/19/2025 11:30 AM EST Office Visit [facility] General Surgery [address], [address] [place] [address] Ashlee Stephens MD [address] [place] [address] documented as of this encounter [...] documented as of this encounter Care Teams Perch Machine Inspector Relationship Specialty Start Date End Date Josseline Cox DO [address] [facility] [address] [place] [address] PCP - General 06/05/24 documented as of this encounter
--- OUTSIDE RECORDS SUMMARY | 2025-02-07 09:13 | XMS_ITS | Encounter Summary ---
Author Organization [facility] Address [address] [place] [address] Care Team Providers Care Dicer Operator Name Role Phone Josseline Cox DO Primary Care Provider [phone] Encounter Details Date Type Department Care Team (Latest Contact Info) Description 01/15/2025 Travel Social History Tobacco Use Types Packs/Day [...] 01/15/2025 8:44 AM EDT Oksana Roberts Feeling down, depressed, or hopeless Not at all 01/15/2025 8:44 AM EDT Oksana Roberts Patient Health Questionnaire -2 Score 0 01/15/2025 8:44 AM EDT Oksana Roberts * Question Answer Date of Assessment Author Trouble falling or staying asleep, or sleeping too much Not at all 01/15/2025 8:44 AM EDT O'Hair, Oksana S Feeling tired or having maikel le energy Not at all 01/15/2025 8:44 AM EDT O'Hair, Oksana S Poor appetite or overeating Not at all 01/15/2025 8: 44 AM EDT O'Hair, Oksana S Feeling bad about yourself - or that you are a failure or have let yourself or your family down Not at all 01/15/2025 8:44 AM EDT O'Hair, Oksana S Trouble concentrating on things, such as reading the newspaper or watching television Not at all 01/15/2025 8:44 AM EDT Niko'Hair, Oksana S Moving or speaking so slowly that other people could have noticed? Or the opposite - being so fidgety or restless that you have been moving around a lot more than usual. Not at all 01/15/2025 8:44 AM BABS Pope'Oksana Gordillo S Thoughts that you would be better off or hurting yourself in some way Not at all 01/15/2025 8:44 AM Oksana Osborn Patient Health Questionnaire -9 Score 0 01/15/2025 8:44 AM EDCarlitos Pope'Oksana Gordillo * How difficult have these problems made it for you to do your work, take care of things at home, or get along with other people? Answer Date of Assessment Author Not difficult at all 01/15/2025 8:44 AM EDT Niko'Oksana Celis documented as of this encounter Plan of Treatment Upcoming Encounters Date Type Department Care Team (Late st Contact Info) Description 02/19/2025 10:40 AM EST Office Visit [facility] Medicine Specialties [address] [place] [address] Judit León DO [address] [place] [address] 02/19/2025 11:30 AM EST Office Visit [facility] General Surgery [address] [place] [address] Ashlee Stephens MD [address] [place] [address] documented as of this encounter [...] documented as of this encounter Care Teams Dicer Operator Relationship Specialty Start Date End Date Josseline Cox DO [address] [facility] [address] [place] [address] PCP - General 06/05/24 documented as of this encounter
--- OUTSIDE RECORDS SUMMARY | 2025-02-07 09:13 | XMS_ITS | Encounter Summary ---
Author Organization Healthcare Address [address] [place] [address] Care Team Providers Care Packing Machine Inspector Name Role Phone Josseline Cox Primary Care Provider [phone] Encounter Details Date Type Department Care Team (Late st Contact Info) Description 11/01/2024 Results [facility] Medicine Specialties [address] [place] [address] Judit León DO [address] [place] [address] Social History Tobacco Use Types [...] Indicated 12/24/2024 6:00 AM EDT Do steph Boland, RN * Question Answer Date of Assessment [...] Description 02/19/2025 10:40 AM EST Office Visit [facility] Medicine Specialties [address] [place] [address] Judit León DO [address] [place] [address] 02/19/2025 11:30 AM EST Office Visit [facility] General Surgery [address], [address] [place] [address] Ashlee Stephens MD [address] [place] [address] documented as of this encounter Visit Diagnoses Not on filedocumented in this encounter Additional Health Concerns Assessment Noted Time PHQ-9 Depression Total Score: 0 10/24/19 12:18 PM EDT A fall risk assessment has been complete d for the patient 10/23/2024 12:18 PM EDT A Body Mass Index follow-up plan has been documented for the patient 11/01/2024 3:20 PM EDT documented as of this encounter Care Teams Packing Machine Inspector Relationship Specialty Start Date End Date Josseline Cox DO [address] [facility] [address] [place], [place] [address] PCP - General 06/05/24 documented as of this encounter
--- OUTSIDE RECORDS SUMMARY | 2025-02-07 09:13 | XMS_ITS | Encounter Summary ---
Author Organization Healthcare Address [address] [place] [address] Care Team Providers Care Electrician Refinery Name Role Phone Evie Bacon MD Primary Care Provider [phone] Pcp, No Primary Care Provider Josseline Potts DO Primary Care Provider [phone] Encounter Details Date Type Department Care Team (Late st Contact Info) Description 12/04/2013 Orders Only External Location [address] [place] [address] Provider, External Social History Tobacco Use Types [...] Description 02/19/2025 10:40 AM EST Office Visit [facility] Medicine Specialties [address] [place] [address] Judit León DO [address] [place] [address] 02/19/2025 11:30 AM EST Office Visit [facility] General Surgery [address] [place] [address] Ashlee Stephens MD [address] [place] [address] documented as of this encounter Procedures Procedure Name Priority Date/Time Associated Diagnosis Comments US BREAST OUTSIDE IMAGES 12/04/2013 10:40 AM EDT documented in this encounter Results * US BREAST OUTSIDE IMAGES (12/04/2013 10:40 AM EDT) Anatomical Region Laterality Modality Breast Mammography 12/04/2013 10:4 0 AM EDT us External Provider IMG BI PROCEDURES Final Result documented in this encounter Visit Diagnoses Not on filedocumented in this encounter Care Teams Electrician Refinery Relationship Specialty Start Date End Date Evie Bacon MD [address] [place] [address] PCP - General 08/08/20 06/16/21 Pcp, Nicki [address] [place] [address] PCP - General Family Medicine 08/09/22 06/04/24 Josseline Cox DO [address] [facility] [address] [place] [address] PCP - General 06/05/24 documented as of this encounter
== END 2025-02-07 23:59 | disposition home or self-care (01) ==
LOC: RAD 09:10
PROVIDERS: PCP Family Medicine; Visit Provider Physician Assistant
DX: M25.561 Pain in right knee (principal); M25.562 Pain in left knee
CPT/HCPCS: 73562